=== PATIENT | female | born 1965 | race Caucasian/White ===

== ENCOUNTER 2024-06-23 21:06 | Emergency (ER) | payer BC, SELFPAY ==
[2024-06-23 21:08] VITALS: BMI 40.5
[2024-06-23 21:15] VITALS: BP 168/97; PULSE 91; RESP 20; TEMP 36.8; O2SAT 98
--- NOTE | 2024-06-23 21:22 | XR_ITS ---
Examination: CT abdomen and pelvis without contrast. Coronal 3-D reconstructions. Sagittal 2-D reconstructions. Date and time of exam:June 23, 2024 2125 hrs. Indications: Bilateral flank pain beginning yesterday CTDI: vol (mGy): 14.6 DLP: (mGycm): 796 Technique: Axial images of the abdomen have been obtained, 3 mm slice thickness Intravenous contrast material has not been administered. Low dose protocols were performed. One or more of the following dose reduction techniques were used; automated exposure control, adjustment of the mA and/or KV according to patient size, use of iterative reconstruction technique. Findings: No focal liver or splenic lesions No gallstones No pancreatic or adrenal mass 4 mm lower pole left renal calculus No hydronephrosis or ureteral calculi Aorta normal size Normal appendix No bowel obstruction Colonic diverticulosis Contracted urinary bladder no bladder mass or bladder calculi No pelvic mass Advanced degenerative disc disease L2-L3 Impression: 4 mm lower pole nonobstructing left renal calculus No hydronephrosis or ureteral calculi Normal appendix Advanced degenerative disc disease L2-L3
--- NOTE | 2024-06-23 21:23 | EDRME_ITS ---
Rapid Medical Screening Exam [facility] Arrival date/time: 06/23/24 21:06 58F with history of HTN presents to ED with 1 day of lower back/flank pain and N/V. Patient denies dysuria and ab pain. Chief Complaint: Back Pain/Injury Vital signs: Vital Signs Temperature 98.2 F 06/23/24 21:15 Pulse Rate 91 06/23/24 21:15 Respiratory Rate 20 06/23/24 21:15 Blood Pressure 168/97 H 06/23/24 21:15 Pulse Oximetry (%) 98 06/23/24 21:15 Oxygen Delivery Method Room Air 06/23/24 21:15
[2024-06-23] MEDS: ONDANSETRON ODT 4 MG TABRAP PO (21:26)
[2024-06-23] MEDS: HYDROcodone/APAP 7.5/325 TABLET 1 TAB PO (21:26)
[2024-06-23 22:13] LABS: Basophils # (Auto) 0.1 Thou/mm3 (0.0-0.2); Basophils % (Auto) 1 % (0-2.5); Eosinophils # (Auto) 0.1 Thou/mm3 (0.0-0.5); Eosinophils % (Auto) 1 % (0-10); Hematocrit 43.9 % (36.0-46.0); Hemoglobin 14.3 g/dL (12.0-16.0); Immature Granulocytes % (Auto) 1 % (0-0); Immature Granulocytes Auto 0.09 Thou/mm3 (0.00-0.00); Lymphocytes # (Auto) 2.9 Thou/mm3 (1.0-4.8); Lymphocytes % (Auto) 24 % (10-50); Mean Corpuscular HGB Conc 32.6 g/dl (31.0-37.0); Mean Corpuscular Volume 98 fL (80-100); Monocytes # (Auto) 0.8 Thou/mm3 (0.0-0.8); Monocytes % (Auto) 7 % (0-12); Neutrophils # (Auto) 7.9 Thou/mm3 (1.8-7.7); Neutrophils % (Auto) 66 % (37-80); Nucleated Red Blood Cell % 0 /100 WBC (0); Platelet Count 359 Thou/mm3 (140-440); RDW Standard Deviation 60.5 fL (36.4-46.3); Red Blood Count 4.47 Miln/mm3 (4.00-5.20); White Blood Count 11.8 Thou/mm3 (3.6-11.0)
[2024-06-23 22:32] LABS: Collection Type, Urine Clean Catch
[2024-06-23 22:40] LABS: Bacteria,Urine 4+; Bilirubin,Urine Negative (Negative); Blood,Urine Negative (Negative); Clarity,Urine Clear (Clear/Hazy); Color,Urine Lt-Yellow (Lt Yel-Yel); Culture Indicated,Urine Yes; Glucose, Urine Negative (Negative); Hyaline Casts,Urine 1 /hpf (0-1); Ketones,Urine Negative (Negative); Leukocyte Esterase,Urine Positive (Negative); Nitrite,Urine Positive (Negative); Protein,Urine 1+ (Neg - Trace); RBC,Urine 5 /hpf (0-3); Squamous Epithelial Cell,Urine 1 /hpf (0-5); Urobilinogen,Urine Negative mg/dL (0.0-1.0); WBC,Urine 11 /hpf (0-5)
[2024-06-23 22:44] LABS: Alanine Aminotransferase < 7 U/L (10-49); Albumin, Serum 4.8 gm/dL (3.5-5.0); Albumin/Globulin Ratio 1.7 (1.2-2.2); Alkaline Phosphatase 54 U/L (46-116); Anion Gap 9 (7-16); Aspartate Amino Transferase 15 U/L (0-34); BUN/Creatinine Ratio 14 Ratio (12-20); Bilirubin,Total < 0.2 mg/dL (0.3-1.2); Blood Urea Nitrogen 15 mg/dL (9-23); Calcium 10.2 mg/dL (8.3-10.6); Calcium (Corrected) 10.2 mg/dL (8.5-10.1); Chloride 113 mMol/L (98-107); Creatinine (Component) 1.1 mg/dL (0.6-1.3); Estimated Creatinine Clearance 68.2 mL/min (>60); Globulin 2.8 gm/dL (2.3-3.5); Glucose 106 mg/dL (74-106); Lipase 49 U/L (12-53); Osmolality,Calculated 280 (275-295); Potassium 4.7 mMol/L (3.4-5.1); Sodium 140 mMol/L (136-145); Total Protein 7.6 gm/dL (5.7-8.2); eGFR 59 See Note
[2024-06-23 22:46] VITALS: BP 129/97; PULSE 90; RESP 20; O2SAT 91
--- NOTE | 2024-06-23 23:01 | PD.EDBACK ---
ED Back Injury Pain RME/HPI General Chief Complaint: Back Pain/Injury Stated Complaint: LOWER BACK PAIN;N/V Arrival date/time: 06/23/24 21:06 RME / HPI RME / HPI Narrative: 06/23/24 21:06 58F with history of HTN presents to ED with 1 day of lower back/flank pain and N/V. Patient denies dysuria and ab pain. Dr. Franklin?s Main ED Evaluation: 58yo female with pmhx HTN presents to the ED for a chief complaint of right lower back pain that radiates to her bilateral flanks x 1 day. Patient states she has a history of kidney stones, but states her pain does not feel similar to that. She reports taking Tylenol at 1900, but had an emetic episode on the way here. She denies any falls or injuries. Denies UTI symptoms or any other associated symptoms. Related Data Previous Rx's ?Medication ?Instructions ?Recorded cyclobenzaprine 10 mg tablet 10 mg PO Q8H PRN muscle spasm #15 11/19/17 tabs hydrocodone 10 mg-acetaminophen 1 tab PO Q6HR #15 tabs 11/19/17 300 mg tablet lidocaine 5 % topical patch 1 patch topical QDAY PRN 06/24/24 Sacroiliitis pain 15 days #15 ea Allergies Allergy/AdvReac Type Severity Reaction Status Date / Time aspirin AdvReac Intermediate MAKES Verified 06/23/24 21:11 STOMACH BLEED Review of Systems Review of Systems Systems Reviewed: All systems reviewed, normal except as documented Past Medical History Past Medical History CARDIAC: Negative Congestive Heart Failure RESPIRATORY: Positive Asthma; Negative Chronic Obstructive Pulmonary Disease (COPD) GENITOURINARY: Positive Kidney Stones; Negative Renal Disease ENDOCRINE: Negative Diabetes Mellitus Type 1 or Diabetes Mellitus Type 2 Surgical History SURGICAL: Positive Hysterectomy Social History SMOKING STATUS: Current some day smoker ED Exam Narrative Physical exam: GENERAL APPEARANCE: alert and oriented x 4, well-developed, well-nourished, no acute distress VITALS: All vitals were reviewed and the pulse ox is 94% on room air, which is normal according to my interpretation. HEENT: Normocephalic, atraumatic; pupils equal, round, reactive to light; EOMI; mucous membranes pink, moist; oropharynx clear NECK: Supple LUNGS: CTABL; no wheezes, no rales, no rhonchi HEART: Regular rate, regular rhythm; normal S1, S2; no murmurs ABDOMEN: non distended; normal BS; soft, no tenderness, no guarding, no rebound; no masses, no organomegaly, no hernia BACK: no CVA tenderness; tenderness to palpation over the right SI joint, no straight leg raise EXTREMITIES: atraumatic; no edema; normal sensations, full ROM of all 4 extremities with symmetrical strength NEUROLOGIC: awake; alert and oriented x4; cranial nerves II-XII grossly intact; no focal sensory or motor deficits PSYCHIATRIC: appropriate mood and affect SKIN: warm, dry, normal color; no rashes Course Quality Measures none Orders Category Date Time Status IV [Insert IV] NOW Care 06/23/24 23:[address] abdomen pelvis wo con Stat Exams 06/23/24 21:22 Completed CBC Stat Lab 06/23/24 22:03 Completed CMP [Comprehensive Metabolic Panel] Stat Lab 06/23/24 22:03 Completed Lipase Stat Lab 06/23/24 22:03 Completed Urinalysis, C/S if Indicated Stat Lab 06/23/24 22:17 Completed Urine Culture Stat Lab 06/23/24 22:17 Received Acetaminophen Ivpb [Ofirmev Inj] Med 06/23/24 23:17 Discontinued 1,000 mg in 100 ml IV X1 HYDROcodone*/APAP 7.5/325 [[place] 7.5/325] Med 06/23/24 21:22 Discontinued 1 tab PO X1 ONE HYDROmorphone INJ [Dilaudid Inj] Med 06/23/24 23:20 Discontinued 0.5 mg IVP X1 ONE Lidocaine 5% Patch Med 06/23/24 23:17 Discontinued 1 patch TOP X1 ONE Ondansetron Odt [Zofran Odt] Med 06/23/24 21:22 Discontinued 4 mg PO X1 ONE cefTRIAXone/D5w 1gm IV premix [Rocephin/D5w 1gm IV Med 06/23/24 23:05 Discontinued premix] 50 ml IV X1 Reevaluation(s) Reevaluation #1: Patient states she feels better and feels comfortable going home. Time: 00:31 Vital Signs Vital signs: Vital Signs Temperature 98.2 F 06/23/24 21:15 Pulse Rate 91 06/23/24 21:15 Respiratory Rate 20 06/23/24 21:15 Blood Pressure 168/97 H 06/23/24 21:15 Pulse Oximetry (%) 98 06/23/24 21:15 Oxygen Delivery Method Room Air 06/23/24 21:15 Back Pain / Injury MDM Narrative MDM Narrative:: Scribe Attestation: 06/23/24 - Aundrea Baca am scribing for and in the presence of Dr. Franklin. Patient data External records reviewed:: [facility] previous records (Per chart review, patient was seen here on 11/19/17 for a back contusion.) Clinical information provided by:: patient Social determinants that could affect healthcare access:: substance use (smokes cigarettes) Patient has the following chronic illnesses:: asthma How is presenting disease/condition affected by chronic disease/condition?: uneffected by Evaluation data The following diagnostics were reviewed and interpreted by me:: lab results and radiology exam(s) Lab and/or radiology exams considered but not ordered:: none Interpretation Summary: WBC count is slightly elevated at 11.8, CMP is normal, UA shows a UTI, according to my interpretation. ------ [facility] Report Signed Patient: LASHELL MURILLO. Record#: [id number] Birthdate: 1965 Age/Sex: 58 / F Location: [facility] Attending Dr: Ordering Physician: Kennedy Mora PA-C Date of Service: 06/23/24 Procedure(s): CT abdomen pelvis wo con Accession Number(s): [id number] cc: Trent Olivares MD; Marvin Matta MD; Kennedy Mora PA-C~ Examination: CT abdomen and pelvis without contrast. Coronal 3-D reconstructions. Sagittal 2-D reconstructions. Date and time of exam:June 23, 2024 2125 hrs. Indications: Bilateral flank pain beginning yesterday CTDI: vol (mGy): 14.6 DLP: (mGycm): 796 Technique: Axial images of the abdomen have been obtained, 3 mm slice thickness Intravenous contrast material has not been administered. Low dose protocols were performed. One or more of the following dose reduction techniques were used; automated exposure control, adjustment of the mA and/or KV according to patient size, use of iterative reconstruction technique. Findings: No focal liver or splenic lesions No gallstones No pancreatic or adrenal mass 4 mm lower pole left renal calculus No hydronephrosis or ureteral calculi Aorta normal size Normal appendix No bowel obstruction Colonic diverticulosis Contracted urinary bladder no bladder mass or bladder calculi No pelvic mass Advanced degenerative disc disease L2-L3 Impression: 4 mm lower pole nonobstructing left renal calculus No hydronephrosis or ureteral calculi Normal appendix Advanced degenerative disc disease L2-L3 Dictated By: Marvin Matta MD Signed By: <Electronically signed by Marvin Matta MD in OV> 06/23/24 2212 Medications / Prescriptions Medications or Prescriptions considered but not ordered:: none Medication administrations:: Medication Administration History Discontinued Medications Hydrocodone Bitart/Acetaminophen (Hydrocodone/Apap 7.5/325 Tablet) 1 tab PO X1 ONE Stop: 06/23/24 21:23 Last Admin: 06/23/24 21:26 Dose: 1 tab Documented By: OA Hydromorphone HCl (Hydromorphone Inj 2 Mg/Ml Vial) 0.5 mg IVP X1 ONE Stop: 06/23/24 23:21 Last Admin: 06/23/24 23:26 Dose: 0.5 mg Documented By: GAYLE Ceftriaxone Sodium/Dextrose (Rocephin/D5w 1gm Iv Premix) 50 mls @ 100 mls/hr IV X1 ONE Stop: 06/23/24 23:34 Last Infusion: 06/24/24 00:33 Dose: Infused Documented By: Admin: 06/23/24 23:33 Dose: 100 mls/hr Documented By: GAYLE Acetaminophen (Ofirmev Inj) 1,000 mg in 100 mls @ 250 mls/hr IV X1 ONE Stop: 06/23/24 23:40 Last Infusion: 06/24/24 00:32 Dose: Infused Documented By: Admin: 06/23/24 23:34 Dose: 250 mls/hr Documented By: GAYLE Lidocaine (Lidocaine 5% 1 Patch) 1 patch TOP X1 ONE Stop: 06/23/24 23:18 Last Admin: 06/23/24 23:26 Dose: 1 patch Documented By: GAYLE Ondansetron HCl (Ondansetron Odt 4 Mg Tabrap) 4 mg PO X1 ONE; Protocol Stop: 06/23/24 21:23 Last Admin: 06/23/24 21:26 Dose: 4 mg Documented By: OA see above Consultations Consultation(s) initiated? (list below): No Diagnosis Differential diagnosis back pain/injury: sciatica, pyelonephritis and other (sacroileitis, trauma) Most likely diagnosis given after review of the tests above:: see below Admission Indicated Admission indicated?: not indicated Admission Request Was there a request for admission?: No Disposition Plan Disposition Plan: Discharge Discharge Attestation Discharge Attestation: The patient and all family members were given an opportunity to ask questions and understood the discharge instructions. Discharge instructions specifically effects, indications for sooner follow up or return to the emergency department, and the expected course of current diagnosis. Patient condition: Stable Discharge Plan Plan Patient Disposition: HOME (Self Care) Disposition Comment: Stable for discharge Patient condition on transfer: Stable Prescriptions/Referrals Prescriptions/Med Rec: New lidocaine 5 % adhesive patch,medicated 1 patch topical QDAY PRN (Reason: Sacroiliitis pain) 15 Days Qty: 15 0RF Rx Instructions: leave on most painful area for up to 12 hrs No Action cyclobenzaprine 10 mg tablet 10 mg PO Q8H PRN (Reason: muscle spasm) Qty: 15 0RF hydrocodone-acetaminophen 10-300 mg tablet 1 tab PO Q6HR MDD 4 tabs Qty: 15 0RF Referrals: Trent Olivares MD [Primary Care Provider] - In 1 week Problem List Clinical Impression: Sacroiliitis Patient/Caregiver Discharge Instructions Discharge Activity: activity as tolerated Education Materials: Anatomy of a Normal Spine, ED Sacroiliitis Additional Instructions: Please follow-up with your primary care doctor within the next several days Please return to the emergency department if you are worsening in any way or if you do not notice any improvement within the next few days. Print Language: Peruvian Stand Alone Forms: Deysi Award Info., Patient Portal Info Letter
[2024-06-23] MEDS: HYDROmorphone INJ 2 MG/ML VIAL 0.5 MG IVP (23:26)
[2024-06-23] MEDS: LIDOCAINE 5% 1 PATCH TOP (23:26)
[2024-06-23] MEDS: cefTRIAXone/D5w 1gm IV premix 50 ML IV (23:33)
[2024-06-23] MEDS: ACETAMINOPHEN IVPB 1,000 MG/100 ML VIAL 250 MG IV (23:34)
[2024-06-24 00:37] VITALS: BP 90/58; PULSE 79; RESP 16; O2SAT 95
== END 2024-06-24 00:45 | disposition home or self-care (01) ==
PROVIDERS: Physician Assistant; Emergency Provider Emergency Medicine; PCP Specialist
DX: M46.1 Sacroiliitis, not elsewhere classified (principal); N20.0 Calculus of kidney; M51.360 Other intervertebral disc degeneration, lumbar region with discogenic back pain only
CPT/HCPCS: 36415; 74176; 80053; 81001; 83690; 85025; 87077; 87086; 87186; 96365; 96368; 96375; 99284; J0131; J0696; J3490; Q0162; A9270

== ENCOUNTER 2024-09-20 09:56 | Emergency (ER) | payer BC, SELFPAY ==
[2024-09-20 09:57] VITALS: BMI 39.1
[2024-09-20 10:12] VITALS: BP 169/96; PULSE 98; RESP 18; TEMP 36.8; O2SAT 98
--- NOTE | 2024-09-20 10:17 | XR_ITS ---
Examination: CT brain head without contrast. 2-D sagittal coronal reconstructions Date and time of exam:September 20, 2024 at 1043 hours INDICATIONS: Headaches beginning 3 days ago CTDI: vol (mGy):46.4 DLP: (mGycm):904 Technique: Multiple CT axial sections of the brain have been obtained, 5 mm slice thickness. Contrast has not been administered. 2-D sagittal, coronal reconstructions have been obtained Low dose protocols were performed. One or more of the following dose reduction techniques were used; automated exposure control, adjustment of the mA and/or KV according to patient size, use of iterative reconstruction technique. Findings: No significant ventricular enlargement. Intra-axial or extra-axial hemorrhage density is not seen. No mass effect or midline shift Basal cisterns are not remarkable. Fourth ventricle is midline. Cranial vault intact. Impression: Negative for acute hemorrhage, mass effect or midline shift Significant left sphenoid sinusitis
--- NOTE | 2024-09-20 10:18 | PD.EDRME ---
Rapid Medical Screening Exam [facility] Arrival date/time: 09/20/24 09:56 58-year-old female presents emergency department today for concerns for headache Chief Complaint: Headache Vital signs: Vital Signs Temperature 98.2 F 09/20/24 10:12 Pulse Rate 98 09/20/24 10:12 Respiratory Rate 18 09/20/24 10:12 Blood Pressure 169/96 H 09/20/24 10:12 Pulse Oximetry (%) 98 09/20/24 10:12 Oxygen Delivery Method Room Air 09/20/24 10:12
[2024-09-20] MEDS: DiphenhydrAMINE 25 MG CAPSULE PO (10:23)
[2024-09-20] MEDS: METOCLOPRAMIDE 5 MG TABLET 10 MG PO (10:23)
[2024-09-20] MEDS: HYDROcodone/APAP 10/325 TAB PO (10:23)
[2024-09-20 10:50] LABS: Basophils % (Auto) 0 % (0-2.5); Eosinophils % (Auto) 0 % (0-10); Hematocrit 45.7 % (36.0-46.0); Hemoglobin 14.8 g/dL (12.0-16.0); Immature Granulocytes % (Auto) 1 % (0-0); Immature Granulocytes Auto 0.11 Thou/mm3 (0.00-0.00); Lymphocytes % (Auto) 8 % (10-50); Mean Corpuscular HGB Conc 32.4 g/dl (31.0-37.0); Mean Corpuscular Hemoglobin 32.2 pg (25.0-35.0); Mean Corpuscular Volume 100 fL (80-100); Monocytes # (Auto) 0.4 Thou/mm3 (0.0-0.8); Monocytes % (Auto) 3 % (0-12); Neutrophils # (Auto) 11.4 Thou/mm3 (1.8-7.7); Neutrophils % (Auto) 88 % (37-80); Nucleated Red Blood Cell % 0 /100 WBC (0); Platelet Count 273 Thou/mm3 (140-440); Red Blood Count 4.59 Miln/mm3 (4.00-5.20); White Blood Count 12.9 Thou/mm3 (3.6-11.0)
[2024-09-20 11:13] LABS: Alanine Aminotransferase 11 U/L (10-49); Albumin, Serum 5.2 gm/dL (3.5-5.0); Albumin/Globulin Ratio 1.4 (1.2-2.2); Alkaline Phosphatase 68 U/L (46-116); Anion Gap 17 (7-16); Aspartate Amino Transferase 25 U/L (0-34); BUN/Creatinine Ratio 16 Ratio (12-20); Bilirubin,Total < 0.2 mg/dL (0.3-1.2); Blood Urea Nitrogen 18 mg/dL (9-23); Calcium 9.9 mg/dL (8.3-10.6); Calcium (Corrected) 9.9 mg/dL (8.5-10.1); Chloride 111 mMol/L (98-107); Creatinine (Component) 1.1 mg/dL (0.6-1.3); Estimated Creatinine Clearance 66.9 mL/min (>60); Globulin 3.6 gm/dL (2.3-3.5); Glucose 112 mg/dL (74-106); Osmolality,Calculated 278 (275-295); Potassium 4.8 mMol/L (3.4-5.1); Sodium 138 mMol/L (136-145); Total Protein 8.8 gm/dL (5.7-8.2); eGFR 59 See Note
[2024-09-20 11:14] LABS: Carbon Dioxide < 10.0 mMol/L (20.0-31.0)
--- NOTE | 2024-09-20 11:15 | PC.NURSE ---
CALL FROM [facility] IN LAB. PT'S CO2 IS LESS THAN 10. INFORMED.
--- NOTE | 2024-09-20 12:17 | EDNOTE_ITS ---
<Statement entered by Mamie Maciel MD - 09/20/24 13:54> As co-signing physician, I was present and available for consult prn. I concur with the plan and care as documented by the midlevel provider. ED General RME/HPI General Chief complaint: Headache Stated complaint: SEVERE MIGRAINE X 2-3 DAYS W/ VOMITING Time Seen by Provider: 09/20/24 12:11 Arrival date/time: 09/20/24 09:56 The CC: Headache HPI ongoing for the past 3 days persistent in nature 8-10 on a 10 scale frontal but radiating to the everywhere . Complaints of nausea and vomiting currently mildly nauseated. Complaining of mild noise sensitivity but no photophobia. Patient denies neck stiffness, fever, dizziness, or chills. OTC medicines have not been helping prior history of similar events years ago . Patient has been taking OTC medications without relief. States no relief since given the hydrocodone pill approximately 30 minutes ago in the waiting room. Continues to smoke half to 1 pack a day. RME / HPI RME / HPI narrative: 09/20/24 09:56 58-year-old female presents emergency department today for concerns for headache Related Data Previous Rx's ?Medication ?Instructions ?Recorded cyclobenzaprine 10 mg tablet 10 mg PO Q8H PRN muscle s pasm #15 11/19/17 tabs hydrocodone 10 mg-acetaminophen 1 tab PO Q6HR #15 tabs 11/19/17 300 mg tablet Allergies Allergy/AdvReac Type Severity Reaction Status Date / Time aspirin AdvReac Intermediate MAKES Verified 09/20/24 10:00 STOMACH BLEED Review of Systems Review of Systems Narrative Review of Systems: GEN: No fever, no chills, no weight loss EYES: No discharge, no visual changes, no pain HEENT: No ear pain, no congestion, no sore throat PULM: No shortness of breath, no cough, no congestion CV: No chest pain, no dyspnea on exertion, no palpitations GI: No nausea, no vomiting, no diarrhea, no pain, no constipation : No frequency, no urgency, no dysuria MUSC/SKEL: No joint pain, no back pain SKIN: No rash PSYCH: No hallucinations, no depression HEME/LYMPH: No easy bleeding or bruising tendencies NEURO: No weakness, + headache Past Medical History Past Medical History CARDIAC: Negative Congestive Heart Failure RESPIRATORY: Positive Asthma; Negative Chronic Obstructive Pulmonary Disease (COPD) GENITOURINARY: Positive Kidney Stones; Negative Renal Disease ENDOCRINE: Negative Diabetes Mellitus Type 1 or Diabetes Mellitus Type 2 Surgical History SURGICAL: Positive Hysterectomy Social History SMOKING STATUS: Current every day smoker ED Exam Narrative Physical exam: [General: Obese, in moderate discomfort but not in any acute distress Head normocephalic HEENT: Eyes pupils are PERRLA EOMs are intact no nystagmus. Mouth pink dry membranes uvula is midline swallow symmetrical. All other subsystems of ATTR within acceptable limits Neck is supple nontender Chest equal chest rise nontender to palpation Respiratory: Clear to auscultation no wheezes crackles or rubs CV: Rate rhythm is regular no murmurs rubs or clicks Abdomen is distended secondary to body habitus soft nontender no masses positive bowel sounds all 4 quadrants Back: No CVA tenderness no spinous process tenderness from cervical spine thoracic and lumbar spine Skin: Intact no petechiae rash induration ulceration or crepitus Extremities: Moving all extremity against resistance cap refill less than 2 seconds neurosensory intact. No lower extremity edema. Neuro: Awake alert oriented x3 Glascow coma 15 no focal deficits] Course Quality Measures none Orders Category Date Time Status Saline [Insert IV] NOW Care 09/20/24 12:[address] head/brain wo con Stat Exams 09/20/24 10:17 Completed CBC Stat Lab 09/20/24 10:35 Completed CMP [Comprehensive Metabolic Panel] Stat Lab 09/20/24 10:35 Completed DiphenhydrAMINE [Benadryl] Med 09/20/24 10:17 Discontinued 25 mg PO X1 ONE HYDROcodone/APAP 10/325 [[place] 10/325] Med 09/20/24 10:17 Discontinued 1 tab PO X1 ONE Metoclopramide [Reglan] Med 09/20/24 10:17 Discontinued 10 mg PO X1 ONE Morphine Inj Med 09/20/24 12:15 Discontinued 4 mg IVP X1 ONE Ondansetron Inj [Zofran Inj] Med 09/20/24 12:15 Discontinued 4 mg IV X1 ONE Vital Signs Vital signs: Vital Signs Temperature 98.2 F 09/20/24 10:12 Pulse Rate 98 09/20/24 10:12 Respiratory Rate 18 09/20/24 10:12 Blood Pressure 169/96 H 09/20/24 10:12 Pulse Oximetry (%) 98 09/20/24 10:12 Oxygen Delivery Method Room Air 09/20/24 10:12 [facility] Patient data External records reviewed:: [facility] previous records Clinical information provided by:: patient Social determinants that could affect healthcare access:: none Patient has the following chronic illnesses:: Smoker How is presenting disease/condition affected by chronic disease/condition?: e xacerbated by Evaluation data The following diagnostics were reviewed and interpreted by me:: lab results and radiology exam(s) Lab and/or radiology exams considered but not ordered:: CT of the head shows a significant sinusitis but otherwise no acute abnormal finding that requires emergent or immediate intervention. CBC shows a mild leukocytosis of 12.9 no anemia thrombocytopenia CMP shows a chloride of 111 CO2 of less than 10 gap of 17 glucose of 112 no significant transaminitis or T. bili elevation. Interpretation Summary: On initial assessment patient is hyperventilating secondary to pain this is evidenced by CO2 of less than 10. Reassessment of this patient at 1115 show the patient has significant improvement after morphine headache is minimal down to a 1 to a 2. The patient is awake alert smiling. Not in any acute distress vital signs remained stable. Patient was informed of the sinusitis on CT no other acute finding other than the low CO2. Reassessment of this patient at 126 the patient is smiling headache is down to 1 patient is willing to go home. Patient will be discharged with headache. Medications Medications considered but not ordered:: None Medication administrations:: Medication Administration History Discontinued Medications Hydrocodone Bitart/Acetaminophen (Hydrocodone/Apap 10/325 Tab) 1 tab PO X1 ONE Stop: 09/20/24 10:18 Last Admin: 09/20/24 10:23 Dose: 1 tab Documented By: DO Diphenhydramine HCl (Diphenhydramine 25 Mg Capsule) 25 mg PO X1 ONE Stop: 09/20/24 10:18 Last Admin: 09/20/24 10:23 Dose: 25 mg Documented By: DO Metoclopramide HCl (Metoclopramide 5 Mg Tablet) 10 mg PO X1 ONE Stop: 09/20/24 10:18 Last Admin: 09/20/24 10:23 Dose: 10 mg Documented By: DO Morphine Sulfate (Morphine Sulf Inj 10 Mg/Ml Vial) 4 mg IVP X1 ONE Stop: 09/20/24 12:16 Last Admin: 09/20/24 12:27 Dose: 4 mg Documented By: LIBORIO Ondansetron HCl (Ondansetron Inj 2 Mg/Ml Inj 2 Ml) 4 mg IV X1 ONE; Protocol Stop: 09/20/24 12:16 Last Admin: 09/20/24 12:28 Dose: 4 mg Documented By: LIBORIO None Consultations Consultation(s) initiated? (list below): No Diagnosis Differential Diagnosis ED Complaint MDM: Complex migraine tension headache sinusitis Most likely diagnosis given after review of the tests above:: Headache sinusitis Admission Indicated Admission indicated?: not indicated Explain why admission is indicated or not indicated:: Stable for outpatient follow Admission Request Was there a request for admission?: No Disposition Plan Disposition Plan: Discharge Discharge Attestation Discharge Attestation: The patient and all family members were given an opportunity to ask questions and understood the discharge instructions. Discharge instructions specifically effects, indications for sooner follow up or return to the emergency department, and the expected course of current diagnosis. Patient condition: Stable Medical Decision Making Differential Diagnosis Differential Diagnosis: Complex migraine tension headache sinusitis Lab Data 09/20/24 10:35 09/20/24 10:35 Labs: Lab Results 09/20/24 Range/Units 10:35 WBC 12.9 H (3.6-11.0) Thou/mm3 RBC 4.59 (4.00-5.20) Miln/mm3 Hgb 14.8 (12.0-16.0) g/dL Hct 45.7 (36.0-46.0) % MCV 100 (80-100) fL MCH 32.2 (25.0-35.0) pg MCHC 32.4 (31.0-37.0) g/dl RDW Std Deviation 54.0 H (36.4-46.3) fL Plt Count 273 (140-440) Thou/mm3 Neut % (Auto) 88 H (37-80) % Lymph % (Auto) 8 L (10-50) % [place] % (Auto) 3 (0-12) % Eos % (Auto) 0 (0-10) % Baso % (Auto) 0 (0-2.5) % Neut # (Auto) 11.4 H (1.8-7.7) Thou/mm3 Lymph # (Auto) 1.0 (1.0-4.8) Thou/mm3 [place] # (Auto) 0.4 (0.0-0.8) Thou/mm3 Eos # (Auto) 0.0 (0.0-0.5) Thou/mm3 Baso # (Auto) 0.0 (0.0-0.2) Thou/mm3 Immature Gran # (Auto) 0.11 H (0.00-0.00) Thou/mm3 Absolute Nucleated RBC 0.00 (0.00-0.00) Thou/mm3 Immature Gran % 1 H (0-0) % Nucleated RBC % 0 (0) /100 WBC Sodium 138 (136-145) mMol/L Potassium 4.8 (3.4-5.1) mMol/L Chloride 111 H (98-107) mMol/L Carbon Dioxide < 10.0 L* (20.0-31.0) mMol/L Anion Gap 17 H (7-16) BUN 18 (9-23) mg/dL Creatinine 1.1 (0.6-1.3) mg/dL Estim Creat Clear Calc 66.9 (>60) mL/min eGFR 59 L (60 - ) See Note BUN/Creatinine Ratio 16 (12-20) Ratio Glucose 112 H (74-106) mg/dL Calculated Osmolality 278 (275-295) Calcium 9.9 (8.3-10.6) mg/dL Corrected Calcium 9.9 (8.5-10.1) mg/dL Total Bilirubin < 0.2 L (0.3-1.2) mg/dL AST 25 (0-34) U/L ALT 11 (10-49) U/L Alkaline Phosphatase 68 (46-116) U/L Total Protein 8.8 H (5.7-8.2) gm/dL Albumin 5.2 H (3.5-5.0) gm/dL Globulin 3.6 H (2.3-3.5) gm/dL Albumin/Globulin Ratio 1.4 (1.2-2.2) Discharge Plan Plan Patient Disposition: HOME (Self Care) Patient condition on transfer: Stable Prescriptions/Referrals Prescriptions/Med Rec: No Action cyclobenzaprine 10 mg tablet 10 mg PO Q8H PRN (Reason: muscle spasm) Qty: 15 0RF hydrocodone-acetaminophen 10-300 mg tablet 1 tab PO Q6HR MDD 4 tabs Qty: 15 0RF Referrals: Beckie Robertson TELETYPEWRITER INSTALLER [Primary Care Provider] - In 1 week Problem List Clinical Impression: Headache Patient/Caregiver Discharge Instructions Education Materials: Self-Care for Headaches Print Language: Palestinian Stand Alone Forms: Deysi Award Info., Work/School Release, Patient Portal Info Letter PA/SPRINKLER WORKER Supervising Physician PA/SPRINKLER WORKER Supervising Physician: Chivo Valenzuela ENP
[2024-09-20 12:19] VITALS: BP 160/85; PULSE 117; RESP 20; TEMP 36.5; O2SAT 97
[2024-09-20] MEDS: MORPHINE SULF INJ 10 MG/ML VIAL 4 MG IVP (12:27)
[2024-09-20] MEDS: ONDANSETRON INJ 2 MG/ML INJ 2 ML 4 MG IV (12:28)
[2024-09-20 13:37] VITALS: BP 135/96; PULSE 87; RESP 18; TEMP 37.2; O2SAT 98
== END 2024-09-20 13:55 | disposition home or self-care (01) ==
PROVIDERS: Nurse Practitioner Primary Care; Emergency Provider Emergency Medicine; PCP Nurse Practitioner Family
DX: J32.3 Chronic sphenoidal sinusitis (principal); F17.210 Nicotine dependence, cigarettes, uncomplicated
CPT/HCPCS: 36415; 70450; 80053; 85025; 96374; 96375; 99284; J2270; J2405; A9270

== ENCOUNTER 2025-05-13 15:52 | Inpatient (IN) | payer BC, SELFPAY ==
[2025-05-13 15:52] VITALS: BMI 57.3
[2025-05-13 16:27] VITALS: BP 136/86; PULSE 80; RESP 20; TEMP 37; O2SAT 95
--- NOTE | 2025-05-13 16:46 | XR_ITS ---
Examination: Duplex scan of the lower extremity, unilateral left Date and time of exam: May 13, 2025, 1655 hours INDICATIONS: Left leg swelling and pain beginning 4 days ago Technique: Duplex scan of the extremity veins using B-mode/grayscale imaging and Doppler spectral analysis and color flow Attention is directed to internal echogenicity, compression and augmentation involving these veins, color flow assessment, spectral analysis Findings: Extensive occlusive deep vein thrombus, left common femoral, superficial femoral, popliteal, peroneal veins Impression: Extensive occlusive deep vein thrombus, involving left common femoral, left superficial femoral, popliteal, peroneal veins as well as superficial greater saphenous vein.
--- NOTE | 2025-05-13 17:33 | PD.EDLOWEX ---
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 Patient denies any injuries or history of similar pain or swelling. Related Data Home Medications ?Medication ?Instructions ?Recorded ?Confirmed albuterol sulfate 90 mcg/actuation inhalation 05/14/25 aerosol inhaler benzonatate 200 mg capsule mg PO 05/14/25 budesonide 160 mcg-glycopyr 9 inhalation 05/14/25 mcg-formot 4.8 mcg/actuation HFA inhaler (Breztri Aerosphere) celecoxib 200 mg capsule mg 05/14/25 lisinopril 40 mg tablet mg 05/14/25 tizanidine 4 mg tablet mg 05/14/25 zolpidem 10 mg tablet mg 05/14/25 Allergies Allergy/AdvReac Type Severity Reaction Status Date / Time aspirin AdvReac Intermediate MAKES Verified 05/13/25 15:55 STOMACH BLEED Review of Systems Review of Systems Systems Reviewed: All systems reviewed, normal except as documented Past Medical History Past Medical History RESPIRATORY: Positive Asthma GENITOURINARY: Positive Kidney Stones Surgical History SURGICAL: Positive Hysterectomy Social History SMOKING STATUS: Light (< 1 pack/day) ED Exam Narrative Physical exam: Constitutional: Awake, alert, nontoxic, no acute distress HEENT: Normocephalic, atraumatic, extraocular movements intact. Neck: Supple CV: Regular rate and rhythm, no murmurs/rubs/gallops Lungs: Clear to auscultation BL, no respiratory distress. Abd: Soft, NT, ND, no HSM noted to palpation Extremities: No deformities, significant swelling to the left lower extremity with 3-4+ pitting edema, pain with dorsiflexion, varicose veins Neuro: AAOx3, CN 2-12 GIBL, no acute neuro deficit noted. Skin: Warm, dry, intact Course Course Course Narrative: 1757h: Patient's ultrasound is back with significant extensive DVT. Labs are pending. Due to the extent of DVT, heparin was ordered. Is pending labs. Will sign out to night doctor Dr. Jones pending same with plan for admission. Quality Measures none Orders Category Date Time Status Notify provider NOW Care 05/13/25 17:55 Active US venous doppler LE LT Stat Exams 05/13/25 16:46 Completed CBC Stat Lab 05/13/25 17:37 Completed CMP [Comprehensive Metabolic Panel] Stat Lab 05/13/25 17:37 Completed CMP [Comprehensive Metabolic Panel] Stat Lab 05/13/25 21:56 Completed PT [Prothrombin Time with INR] Stat Lab 05/13/25 17:37 Completed Partial Thromboplastin Time Stat Lab 05/13/25 17:37 Completed Heparin Inj Med 05/13/25 17:55 Discontinued 4,000 unit IV X1 ONE Heparin/D5w 25K 250 ML Ivpb [Heparin in D5w Ivpb] Med 05/13/25 18:00 Active 25,000 unit in 250 ml IV 11.9 units/kg/hr Morphine* Inj Med 05/13/25 20:40 Discontinued 4 mg IVP X1 ONE Ondansetron Inj [Zofran Inj] Med 05/13/25 20:41 Discontinued 4 mg IVP X1 ONE Vital Signs Vital signs: Vital Signs Temperature 98.6 F 05/13/25 16:27 Pulse Rate 80 05/13/25 16:27 Respiratory Rate 20 05/13/25 16:27 Blood Pressure 136/86 H 05/13/25 16:27 Pulse Oximetry (%) 95 05/13/25 16:27 Oxygen Delivery Method Room Air 05/13/25 16:27 Pulse ox is 95% on room air which is adequate. Extremity Injury, Lower MDM Narrative MDM Narrative:: Denita Baca am scribing for and in the presence of Dr. Samuel. Patient data External records reviewed:: [facility] previous records Clinical information provided by:: patient Social determinants that could affect healthcare access:: other (specify) (active tobacco smoker ) Patient has the following chronic illnesses:: asthma, arthritis, and active tobacco smoker How is presenting disease/condition affected by chronic disease/condition?: exacerbated by Evaluation data The following diagnostics were reviewed and interpreted by me:: radiology exam(s) Lab and/or radiology exams considered but not ordered:: None Interpretation Summary: Ordering Physician: Heaven Samuel MD Date of Service: 05/13/25 Procedure(s): US venous doppler LE LT Accession Number(s): [id number] cc: Marvin Matta MD; Heaven Samuel MD~ Examination: Duplex scan of the lower extremity, unilateral left Date and time of exam: May 13, 2025, 1655 hours INDICATIONS: Left leg swelling and pain beginning 4 days ago Technique: Duplex scan of the extremity veins using B-mode/grayscale imaging and Doppler spectral analysis and color flow Attention is directed to internal echogenicity, compression and augmentation involving these veins, color flow assessment, spectral analysis Findings: Extensive occlusive deep vein thrombus, left common femoral, superficial femoral, popliteal, peroneal veins Impression: Extensive occlusive deep vein thrombus, involving left common femoral, left superficial femoral, popliteal, peroneal veins as well as superficial greater saphenous vein. Dictated By: Marvin Matta MD Signed By: <Electronically signed by Marvin Matta MD in OV> 05/13/25 1736 Medications / Prescriptions Medications or Prescriptions considered but not ordered:: None Medication administrations:: Medication Administration History Acetaminophen (Acetaminophen 325 Mg Tablet) 650 mg PO Q6H PRN PRN Reason: Fever >100.4 or pain 1-3 Stop: 06/12/25 22:06 Last Admin: 05/14/25 06:23 Dose: 650 mg Documented By: Admin: 05/14/25 00:43 Dose: 650 mg Documented By: AC Hydrocodone Bitart/Acetaminophen (Hydrocodone/Apap 5/325 Tablet) 1 tab PO Q4HR PRN PRN Reason: pain 4-6 Stop: 05/19/25 01:52 Albuterol/Ipratropium (Albuterol/Ipratropium (Duoneb) Rt Rabia 3 Ml Nebu) 3 ml INH Q4HRRT PRN PRN Reason: shortness of breath Stop: 06/12/25 22:59 Docusate Sodium (Docusate Sod 100 Mg Capsule) 100 mg PO QDAY [facility]; Protocol Stop: 06/13/25 08:59 Heparin Sodium/Dextrose (Heparin In D5w Ivpb) 25,000 unit in 250 mls @ 18.029 mls/hr IV .[id number] [facility]; Protocol Stop: 05/27/25 17:59 Last Admin: 05/13/25 19:47 Dose: 11.9 units/kg/hr, 18.029 mls/hr Documented By: GAYLE Co-signed By: GAYLE(2) Morphine Sulfate (Morphine Sulf Inj 4 Mg/Ml Vial) 2 mg IVP Q4HR PRN PRN Reason: Pain 7-10 Stop: 05/19/25 01:52 Last Admin: 05/14/25 05:34 Dose: 2 mg Documented By: Admin: 05/14/25 02:07 Dose: 2 mg Documented By: GAYLE Ondansetron HCl (Ondansetron Inj 2 Mg/Ml Inj 2 Ml) 4 mg IVP Q6H PRN; Protocol PRN Reason: NAUSEA OR VOMITING Stop: 06/12/25 22:06 Pantoprazole Sodium (Pantoprazole Inj 40 Mg Vial) 40 mg IVP QDAY PREET Stop: 06/13/25 08:59 Zolpidem Tartrate (Zolpidem 5 Mg Tablet) 5 mg PO HS PRN PRN Reason: INSOMNIA Stop: 06/12/25 22:11 Discontinued Medications Albuterol/Ipratropium (Albuterol/Ipratropium (Duoneb) Rt Rabia 3 Ml Nebu) 3 ml INH Q4HRRT PREET Stop: 06/12/25 22:59 Last Admin: 05/13/25 22:32 Dose: 3 ml Documented By: TREVOR Heparin Sodium (Porcine) (Heparin Sod Inj 5000 Unit/Ml Vial) 4,000 unit IV X1 ONE; Protocol Stop: 05/13/25 17:56 Last Admin: 05/13/25 19:43 Dose: 4,000 unit Documented By: GAYLE Co-signed By: GAYLE(2) Morphine Sulfate (Morphine Sulf Inj 4 Mg/Ml Vial) 4 mg IVP X1 ONE Stop: 05/13/25 20:41 Last Admin: 05/13/25 21:08 Dose: 4 mg Documented By: CHRISTINA Ondansetron HCl (Ondansetron Inj 2 Mg/Ml Inj 2 Ml) 4 mg IVP X1 ONE; Protocol Stop: 05/13/25 20:42 Last Admin: 05/13/25 21:08 Dose: 4 mg Documented By: CHRISTINA See above Consultations Consultation(s) initiated? (list below): No Diagnosis Most likely diagnosis given after review of the tests above:: Left lower extremity DVT Admission Indicated Admission indicated?: not indicated Explain why admission is indicated or not indicated:: Signed out pending final disposition Admission Request Was there a request for admission?: No Disposition Plan Disposition Plan: other (specify) (Signed out to Dr. Jones ) Critical Care Time Critical Care Time Total Critical Care Time (min.): 32 Attestation: The high probability of a clinically significant, sudden or life threatening deterioration required my full and direct attention, intervention and personal management. The aggregate critical care time was [32] minutes. This time is in addition to time spent performing reported procedures but includes the following: [x] Data Review and interpretation [x] Patient assessment and monitoring of vital signs [x] Documentation [x] Medication orders and management Discharge Plan Plan Patient Disposition: Admit Acute Care w/in Hospital Problem List Clinical Impression: DVT (deep venous thrombosis)
[2025-05-13 17:54] LABS: Basophils # (Auto) 0.0 Thou/mm3 (0.0-0.2); Basophils % (Auto) 0 % (0-2.5); Eosinophils # (Auto) 0.2 Thou/mm3 (0.0-0.5); Eosinophils % (Auto) 2 % (0-10); Hematocrit 41.5 % (36.0-46.0); Hemoglobin 13.5 g/dL (12.0-16.0); Immature Granulocytes Auto 0.10 Thou/mm3 (0.00-0.00); Lymphocytes # (Auto) 2.6 Thou/mm3 (1.0-4.8); Lymphocytes % (Auto) 22 % (10-50); Mean Corpuscular HGB Conc 32.5 g/dl (31.0-37.0); Mean Corpuscular Hemoglobin 31.8 pg (25.0-35.0); Mean Corpuscular Volume 98 fL (80-100); Monocytes # (Auto) 1.2 Thou/mm3 (0.0-0.8); Monocytes % (Auto) 10 % (0-12); Neutrophils # (Auto) 7.9 Thou/mm3 (1.8-7.7); Neutrophils % (Auto) 66 % (37-80); Nucleated Red Blood Cell # 0.00 Thou/mm3 (0.00-0.00); Nucleated Red Blood Cell % 0 /100 WBC (0); Platelet Count 229 Thou/mm3 (140-440); RDW Standard Deviation 51.4 fL (36.4-46.3); Red Blood Count 4.24 Miln/mm3 (4.00-5.20); White Blood Count 12.0 Thou/mm3 (3.6-11.0)
[2025-05-13 18:05] LABS: INR 1.0 (0.9-1.3); Prothrombin Time 10.2 Seconds (9.0-12.2)
[2025-05-13 18:23] LABS: Alanine Aminotransferase < 7 U/L (10-49); Albumin, Serum 4.7 gm/dL (3.5-5.0); Albumin/Globulin Ratio 1.9 (1.2-2.2); Alkaline Phosphatase 43 U/L (46-116); Anion Gap 6 (7-16); Aspartate Amino Transferase 15 U/L (0-34); BUN/Creatinine Ratio 23 Ratio (12-20); Bilirubin,Total < 0.2 mg/dL (0.3-1.2); Blood Urea Nitrogen 23 mg/dL (9-23); Calcium 9.1 mg/dL (8.3-10.6); Calcium (Corrected) 9.1 mg/dL (8.5-10.1); Carbon Dioxide 20.8 mMol/L (20.0-31.0); Chloride 112 mMol/L (98-107); Creatinine (Component) 1.0 mg/dL (0.6-1.3); Estimated Creatinine Clearance 91.5 mL/min (>60); Globulin 2.5 gm/dL (2.3-3.5); Glucose 92 mg/dL (74-106); Osmolality,Calculated 281 (275-295); Potassium 5.5 mMol/L (3.4-5.1); Sodium 139 mMol/L (136-145); Total Protein 7.2 gm/dL (5.7-8.2); eGFR > 60 See Note
--- NOTE | 2025-05-13 18:32 | PD.EDADDENDU ---
Emergency Room Addendum Addendum Narrative: 1800: Care assumed from Dr. Samuel (emergency physician). Past medical, surgical, social and family history reviewed. Vitals and home medications reviewed. Results and treatment plan discussed. I will assume the care of the patient at this time and will follow the patient, pending final disposition. The following addendum documentation note is intended to reflect any pending information, findings, or radiology results not included in the patient?s initial chart by the previous shift scribe. RADIOLOGY Venous Doppler Study: Findings: Extensive occlusive deep vein thrombus, left common femoral, superficial femoral, popliteal, peroneal veins Impression: Extensive occlusive deep vein thrombus, involving left common femoral, left superficial femoral, popliteal, peroneal veins as well as superficial greater saphenous vein. 21:15 - Discussed with resident physician for admission. Reviewed the patient?s HPI, PMHx, lab and/or radiology results. Discussed treatment plan. Will consult an admission to the hospitalist. 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 Patient clinically presnting with 2+ edema extending from dorsum of left foot to distal thigh. Laboratory markers demonstrate mildly elevated Potassium of 5.5. Doppler study demonstrates extensive DVT (please see report). Patient began on Heparin infusion, hospitalist consulted for consideration of admission. Final diagnosis is Acute LLE DVT. Critical Care Time Critical Care Time Critical Care Time: Yes Total Critical Care Time (min.): 40 Attestation: The high probability of sudden, clinically significant deterioration in the patient?s condition required the highest level of my preparedness to intervene urgently. The services I provided to this patient were to treat and/or prevent clinically significant deterioration. Services included the following: chart data review, reviewing nursing notes and/or old charts, documentation time, desktop support consultant collaboration regarding findings and treatment options, medication orders and management, direct patient care, vital sign assessments and ordering, interpreting and reviewing diagnostic studies and lab tests. Aggregate critical care time includes only time during which I was engaged in work directly related to the patient?s care, as described above, whether at bedside or elsewhere in the Emergency Department. It did not include time spent performing other reported procedures or the services of residents, students, nurses or physician assistants.
[2025-05-13 19:21] VITALS: BP 162/100; PULSE 96; RESP 19; TEMP 37.1; O2SAT 100
[2025-05-13] MEDS: HEPARIN SOD INJ 5000 UNIT/ML VIAL 4000 UNIT IV (19:43)
[2025-05-13] MEDS: Heparin/D5w 25K 250 ML Ivpb 25,000 UNIT/250 ML BAG 18.029 UNIT IV (19:47)
[2025-05-13 19:52] LABS: Partial Thromboplastin Time 32.6 Seconds (22.0-36.0)
[2025-05-13] MEDS: ONDANSETRON INJ 2 MG/ML INJ 2 ML 4 MG IVP (21:08)
[2025-05-13] MEDS: MORPHINE SULF INJ 4 MG/ML VIAL IVP (21:08)
[2025-05-13 22:01] VITALS: BP 140/75; PULSE 94; RESP 18; TEMP 36.7; O2SAT 96
--- NOTE | 2025-05-13 22:11 | EKG_ITS ---
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
--- NOTE | 2025-05-13 22:13 | ESHP_ITS ---
<Statement entered by Xu Barnhart MD - 05/14/25 05:57> I have discussed and was present for the essential components of the history, physical examination, diagnosis, and treatment plan with the resident. I agree with the patient's care as documented by the resident and amended herein by me. Xu Barnhart MD FACP. 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 Wells Score 4.5 (+clinical signs of DVT +3, previous DVT +1.5) ED Course Summary Vitals: BP 136/86 HR 80 RR 20 T 98.6F O2 sat 95% RA Labs: WBC 12, K 5.5 Cl- 112, BUN 23 Cr 1.0 - baseline T bili <0.3 LFT wnl Coag wnl (PT 10.2 INR 1.0 APTT 32.6) Imaging: Venous Doppler US extensive occlusive deep vein thrombus, involving left common femoral, left superficial femoral, popliteal, peroneal veins as well as superficial greater saphenous vein Treatment: heparin 4,000 unit x1, Heparin drip, morphine sulfate 4mg IVP x1, Zofran 4mg IVP x1 Upon initial examination patient is in good spirits. States she has had left lower extremity swelling and sensitivity for the last 4 days. She went to her PCP for her zolpidem refill who recommended she come to the ED after seeing her extensive leg swelling. She is currently unable to walk without assistance of cane due to pain in her L leg. She states her leg is warm, painful but she denies numbness, coolness, or tingling. She can still move her foot in full range of motion and can wiggle her toes without too much discomfort. 3 days ago she returned from her long haul trip from [place]. She reports a previous DVT in 1986 following of her only child. She denies any history of bleeding disorders or miscarriages. As of the last few days she denies SOB, chest pain, palpitations. She denies history of heart failure or diabetes. She drinks a can of coffee 165mg every morning. She has a tray complexion with telangelectasias that has been present since childhood. 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 Exam Vital Signs Temp Pulse Resp BP Pulse Ox O2 Del Method 98.1 F 94 18 140/75 H 96 Room Air 05/13/25 22:01 05/13/25 22:01 05/13/25 22:01 05/13/25 22:01 05/13/25 22:01 05/13/25 22:01 Narrative Exam GENERAL APPEARANCE: AOx3. NAD, activity normal for age, well developed/ well nourished, no cyanosis, pallor, or diaphoresis. HEENT: Normocephalic atraumatic, no facial trauma, neck is supple. Lids/conjunctiva normal. Mucous membranes moist, nares normal, lips/teeth normal uvula midline without oral pharyngeal erythema, exudate or swelling TMs normal bilaterally. No lymphangitis/lymphedema. Tray complexion with telangelctasias (chronic) CARDIAC: Regular rate and rhythm, S1+S2 heard. No murmurs, rubs, or gallops noted RESPIRATORY: respiratory effort normal, speaks in full sentences, no tripod position, no accessory muscle use. Lungs clear to auscultation without rhonchi, wheezes, rales ABDOMINAL: NBS. Soft, ND/NT. No evidence of fluid wave. No pulsatile masses on exam, rebound tenderness, Motta sign or pain over Mcburney's point. MUSCLES/EXTREMITIES: No abnormal range of motion. L extremity swelling, and warmth from ankle to groin, enlarged circumference, TTP, without erythema, no numbness, toes and feet have full range of motion. Homans+ DERM: Warm, pink and dry. No rashes, dermatoses, petechiae or lesions. NEUROLOGICAL: Speech is clear and appropriate. Normal level of consciousness. 5/5 strength in all extremities. PSYCH: Normal mood and affect. Judgement/competence is appropriate Results: Labs 05/13/25 17:37 05/13/25 21:56 Labs: Short CBC 05/13/25 Range/Units 17:37 WBC 12.0 H (3.6-11.0) Thou/mm3 Hgb 13.5 (12.0-16.0) g/dL Hct 41.5 (36.0-46.0) % Plt Count 229 (140-440) Thou/mm3 BMP 05/13/25 17:37 Sodium 139 Potassium 5.5 H Chloride 112 H Carbon Dioxide 20.8 BUN 23 Creatinine 1.0 Glucose 92 Calcium 9.1 Liver Function 05/13/25 Range/Units 17:37 Total Bilirubin < 0.2 L (0.3-1.2) mg/dL AST 15 (0-34) U/L ALT < 7 L (10-49) U/L Alkaline Phosphatase 43 L (46-116) U/L Albumin 4.7 (3.5-5.0) gm/dL Quality Measures Quality Measures none Medications Home Medications and Allergies Allergies Allergy/AdvReac Type Severity Reaction Status Date / Time aspirin AdvReac Intermediate MAKES Verified 05/13/25 15:55 STOMACH BLEED Visit Medications Acetaminophen (Acetaminophen 325 Mg Tablet) 650 mg PO Q6H PRN PRN Reason: Fever >100.4 or pain 1-3 Stop: 06/12/25 22:06 Albuterol/Ipratropium (Albuterol/Ipratropium (Duoneb) Rt Rabia 3 Ml Nebu) 3 ml INH Q4HRRT PREET Stop: 06/12/25 22:59 Docusate Sodium (Docusate Sod 100 Mg Capsule) 100 mg PO QDAY PREET; Protocol Stop: 06/13/25 08:59 Heparin Sodium/Dextrose (Heparin In D5w Ivpb) 25,000 unit in 250 mls @ 18.029 mls/hr IV .[id number] PREET; Protocol Stop: 05/27/25 17:59 Last Admin: 05/13/25 19:47 Dose: 11.9 units/kg/hr, 18.029 mls/hr Ondansetron HCl (Ondansetron Inj 2 Mg/Ml Inj 2 Ml) 4 mg IVP Q6H PRN; Protocol PRN Reason: NAUSEA OR VOMITING Stop: 06/12/25 22:06 Pantoprazole Sodium (Pantoprazole Inj 40 Mg Vial) 40 mg IVP QDAY PREET Stop: 06/13/25 08:59 Zolpidem Tartrate (Zolpidem 5 Mg Tablet) 5 mg PO HS PRN PRN Reason: INSOMNIA Stop: 06/12/25 22:11 Discontinued Medications Heparin Sodium (Porcine) (Heparin Sod Inj 5000 Unit/Ml Vial) 4,000 unit IV X1 ONE; Protocol Stop: 05/13/25 17:56 Last Admin: 05/13/25 19:43 Dose: 4,000 unit Morphine Sulfate (Morphine Sulf Inj 4 Mg/Ml Vial) 4 mg IVP X1 ONE Stop: 05/13/25 20:41 Last Admin: 05/13/25 21:08 Dose: 4 mg Ondansetron HCl (Ondansetron Inj 2 Mg/Ml Inj 2 Ml) 4 mg IVP X1 ONE; Protocol Stop: 05/13/25 20:42 Last Admin: 05/13/25 21:08 Dose: 4 mg Assessment & Plan Plan 59 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 Patient does not attest to any bruising or trauma to leg. Wells Score 4.5 (+clinical signs of DVT +3, previous DVT +1.5). Prior history of DVT from post state. Currently 4 days of leg swelling up to groin, Homans+, no numbness or paresthesias, just pain and swelling, still able to move toes with full range of motion of legs and ankle. Venous doppler US extensive occlusive deep vein thrombus, involving left common femoral, left superficial femoral, popliteal, peroneal veins as well as superficial greater saphenous vein. Labs coags are within normal limits. Started on heparin drip and ordered IR thrombolysis due to extensive proximal occlusions. Not concerned for DVT as patient has no chest pain or SOB, or increased work of breathing, ordered EKG to help support this. Plan: -Heparin drip -Consider eliquis on discharge/outpatient indefinitely -IR infusion thrombolytics ordered -FUP coag panels -FUP EKG:____ -FUP TSH:___ -FUP lipid panel:____ #Hx of COPD #Hx of Asthma On Brezti (budesonide/glycopyrrolate/formoterol fumerate) 2 puffs in AM and PM, albuterol rescue inhaler. Plan: -Duonebs 3ml INH Q4HRRT -O2 nasal cannula PRN #Hx of Insomnia Zolpidem at home Plan: -Zolpidem 5 mg PO HS PRN Health Maintenance: Code status: Full DVT prophylaxis: Heparin drip GI prophylaxis: Protonix Diet: regular Martinez: purewick Lines: PIV Supplemental O2: NC PRN Disposition: Tele for DVT heparin drip Patient seen and reviewed with attending Dr. Barnhart. Note written by Abhi Singleton MD PGY-1
[2025-05-13] MEDS: ALBUTEROL/IPRATROPIUM (Duoneb) RT SOL 3 ML NEBU INH (22:32)
[2025-05-13 22:33] VITALS: PULSE 90; PULSE 94; RESP 20; RESP 22; RESP 98; O2SAT 99
[2025-05-13 22:42] LABS: Alanine Aminotransferase 8 U/L (10-49); Albumin, Serum 4.4 gm/dL (3.5-5.0); Albumin/Globulin Ratio 1.6 (1.2-2.2); Alkaline Phosphatase 42 U/L (46-116); Anion Gap 7 (7-16); Aspartate Amino Transferase 15 U/L (0-34); BUN/Creatinine Ratio 19 Ratio (12-20); Bilirubin,Total 0.2 mg/dL (0.3-1.2); Blood Urea Nitrogen 17 mg/dL (9-23); Calcium 9.4 mg/dL (8.3-10.6); Calcium (Corrected) 9.4 mg/dL (8.5-10.1); Carbon Dioxide 20.7 mMol/L (20.0-31.0); Chloride 112 mMol/L (98-107); Creatinine (Component) 0.9 mg/dL (0.6-1.3); Estimated Creatinine Clearance 101.7 mL/min (>60); Globulin 2.7 gm/dL (2.3-3.5); Glucose 101 mg/dL (74-106); Osmolality,Calculated 280 (275-295); Potassium 5.0 mMol/L (3.4-5.1); Sodium 140 mMol/L (136-145); Total Protein 7.1 gm/dL (5.7-8.2); eGFR > 60 See Note
[2025-05-14] VITALS (12 sets, daily range): BP systolic 97–140; BP diastolic 61–75; PULSE 73–88; RESP 12–97; TEMP 36.2–36.9; O2SAT 90–100; BMI 38.7
--- NOTE | 2025-05-14 00:36 | PC.NURSE ---
Pt has orders for a hansen cath. Pt does not want a hansen at this time. We will use a bedpan per pt request or a perwick.
[2025-05-14] MEDS: ACETAMINOPHEN 325 MG TABLET 650 MG PO ×2 (00:43→06:23)
[2025-05-14] MEDS: MORPHINE SULF INJ 4 MG/ML VIAL 2 MG IVP ×5 (02:07→22:51)
[2025-05-14 06:49] LABS: Basophils # (Auto) 0.0 Thou/mm3 (0.0-0.2); Basophils % (Auto) 0 % (0-2.5); Eosinophils # (Auto) 0.2 Thou/mm3 (0.0-0.5); Eosinophils % (Auto) 2 % (0-10); Hematocrit 39.8 % (36.0-46.0); Hemoglobin 13.1 g/dL (12.0-16.0); Immature Granulocytes Auto 0.07 Thou/mm3 (0.00-0.00); Lymphocytes # (Auto) 2.6 Thou/mm3 (1.0-4.8); Lymphocytes % (Auto) 26 % (10-50); Mean Corpuscular HGB Conc 32.9 g/dl (31.0-37.0); Mean Corpuscular Hemoglobin 32.4 pg (25.0-35.0); Mean Corpuscular Volume 99 fL (80-100); Monocytes # (Auto) 1.0 Thou/mm3 (0.0-0.8); Monocytes % (Auto) 10 % (0-12); Neutrophils # (Auto) 6.2 Thou/mm3 (1.8-7.7); Neutrophils % (Auto) 61 % (37-80); Nucleated Red Blood Cell # 0.00 Thou/mm3 (0.00-0.00); Nucleated Red Blood Cell % 0 /100 WBC (0); Platelet Count 232 Thou/mm3 (140-440); RDW Standard Deviation 52.0 fL (36.4-46.3); Red Blood Count 4.04 Miln/mm3 (4.00-5.20); White Blood Count 10.0 Thou/mm3 (3.6-11.0)
[2025-05-14 07:18] LABS: Alanine Aminotransferase < 7 U/L (10-49); Albumin, Serum 4.3 gm/dL (3.5-5.0); Albumin/Globulin Ratio 1.8 (1.2-2.2); Alkaline Phosphatase 40 U/L (46-116); Anion Gap 5 (7-16); Aspartate Amino Transferase 14 U/L (0-34); BUN/Creatinine Ratio 20 Ratio (12-20); Bilirubin,Total 0.2 mg/dL (0.3-1.2); Blood Urea Nitrogen 16 mg/dL (9-23); Calcium 8.7 mg/dL (8.3-10.6); Calcium (Corrected) 8.7 mg/dL (8.5-10.1); Carbon Dioxide 22.0 mMol/L (20.0-31.0); Cardiac Risk Estimate 3.8 RATIO (3.7-5.6); Chloride 109 mMol/L (98-107); Cholesterol 91 mg/dL (132-200); Creatinine (Component) 0.8 mg/dL (0.6-1.3); Estimated Creatinine Clearance 90.4 mL/min (>60); Globulin 2.4 gm/dL (2.3-3.5); Glucose 87 mg/dL (74-106); HDL Cholesterol 24 mg/dL (40-60); LDL Cholesterol,Calculated 15 mg/dL (0-130); Magnesium 1.9 mg/dL (1.6-2.6); Osmolality,Calculated 272 (275-295); Phosphorous 3.1 mg/dL (2.4-5.1); Potassium 4.9 mMol/L (3.4-5.1); Sodium 136 mMol/L (136-145); Thyroid Stimulating Hormone 1.39 uIU/mL (0.55-4.78); Total Protein 6.7 gm/dL (5.7-8.2); Triglycerides 259 mg/dL (30-150); eGFR > 60 See Note
[2025-05-14 07:27] LABS: Partial Thromboplastin Time 65.2 Seconds (22.0-36.0)
--- NOTE | 2025-05-14 08:00 | ESPR_ITS ---
<Statement entered by Michelle Patel MD - 05/25/25 08:30> I reviewed above note and agree with findings and plans. I have also personally examined the patient with medicine team and went over assessment and plan with medical team including internet sales director and resident physician. Documentation for date of: 05/14/25 Subjective Subjective Interval history: patient seen and examined at bedside pt endorses increased shortness of breath, new from baseline CTA chest without PE, RUL 3cm nodule and extensive LAD calcifications pending administration of cathflow to L foot for catheter directed thrombolysis. pt pain better tolerated with the dilaudid given this morning. Exam Vital Signs Temp Pulse Resp BP Pulse Ox O2 Del Method O2 Flow Rate 98.5 F 73 21 H 108/62 96 Room Air 20 05/14/25 04:00 05/14/25 04:00 05/14/25 04:00 05/14/25 04:00 05/14/25 04:00 05/14/25 04:00 05/14/25 03:15 Narrative Exam GENERAL APPEARANCE: AOx3. NAD, activity normal for age, well developed/ well nourished, no cyanosis, pallor, or diaphoresis. HEENT: Normocephalic atraumatic, no facial trauma, neck is supple. Lids/conjunctiva normal. Mucous membranes moist, nares normal, large neck circumference CARDIAC: Regular rate and rhythm, S1+S2 heard. No murmurs, rubs, or gallops noted RESPIRATORY: respiratory effort normal, speaks in full sentences, no tripod position, no accessory muscle use. Lungs clear to auscultation without rhonchi, wheezes, rales ABDOMINAL: NBS. Soft, ND/NT. No evidence of fluid wave. No pulsatile masses on exam, rebound tenderness, MUSCLES/EXTREMITIES: No abnormal range of motion. L extremity swelling, and warmth from ankle to groin, enlarged circumference, TTP, without erythema, no numbness, toes and feet have full range of motion. pulses palpable 1+ bilaterally DERM: Warm, pink and dry. No rashes, dermatoses, petechiae or lesions. NEUROLOGICAL: Speech is clear and appropriate. Normal level of consciousness. 5/5 strength in all extremities. PSYCH: Normal mood and affect. Judgement/competence is appropriate Objective Labs 05/14/25 06:25 05/14/25 06:25 Labs: Laboratory Results - last 24 hr 05/13/25 05/13/25 05/14/25 17:37 21:56 06:25 WBC 12.0 H 10.0 RBC 4.24 4.04 Hgb 13.5 13.1 Hct 41.5 39.8 MCV 98 99 MCH 31.8 32.4 MCHC 32.5 32.9 RDW Std Deviation 51.4 H 52.0 H Plt Count 229 232 Neut % (Auto) 66 61 Lymph % (Auto) 22 26 [place] % (Auto) 10 10 Eos % (Auto) 2 2 Baso % (Auto) 0 0 Neut # (Auto) 7.9 H 6.2 Lymph # (Auto) 2.6 2.6 [place] # (Auto) 1.2 H 1.0 H Eos # (Auto) 0.2 0.2 Baso # (Auto) 0.0 0.0 Immature Gran # (Auto) 0.10 H 0.07 H Absolute Nucleated RBC 0.00 0.00 Immature Gran % 1 H 1 H Nucleated RBC % 0 0 PT 10.2 INR 1.0 APTT 32.6 65.2 H D Sodium 139 140 136 Potassium 5.5 H 5.0 D 4.9 Chloride 112 H 112 H 109 H Carbon Dioxide 20.8 20.7 22.0 Anion Gap 6 L 7 5 L BUN 23 17 16 Creatinine 1.0 0.9 0.8 Estim Creat Clear Calc 91.5 101.7 90.4 eGFR > 60 > 60 > 60 BUN/Creatinine Ratio 23 H 19 20 Glucose 92 101 87 Calculated Osmolality 281 280 272 L Calcium 9.1 9.4 8.7 Corrected Calcium 9.1 9.4 8.7 Phosphorus 3.1 Magnesium 1.9 Total Bilirubin < 0.2 L 0.2 L 0.2 L AST 15 15 14 ALT < 7 L 8 L < 7 L Alkaline Phosphatase 43 L 42 L 40 L Total Protein 7.2 7.1 6.7 Albumin 4.7 4.4 4.3 Globulin 2.5 2.7 2.4 Albumin/Globulin Ratio 1.9 1.6 1.8 Triglycerides 259 H Cholesterol 91 L LDL Cholesterol, Calc 15 HDL Cholesterol 24 L Cholesterol/HDL Ratio 3.8 TSH 1.39 Quality Measures Quality Measures VTE prophylaxis Assessment & Plan Assessment Current Active Medications: Generic Name Dose Route Start Last Admin Trade Name Freq PRN Reason Stop Dose Admin Acetaminophen 650 mg 05/13/25 22:07 05/14/25 06:23 Acetaminophen 325 Mg Tablet PO 06/12/25 22:06 650 mg Q6H PRN Administration Fever >100.4 or pain 1-3 Hydrocodone Bitart/Acetaminophen 1 tab 05/14/25 01:53 Hydrocodone/Apap 5/325 Tablet PO 05/19/25 01:52 Q4HR PRN pain 4-6 Albuterol/Ipratropium 3 ml 05/14/25 00:31 Albuterol/Ipratropium (Duoneb) Rt Rabia 3 Ml Nebu INH 06/12/25 22:59 Q4HRRT PRN shortness of breath Docusate Sodium 100 mg 05/14/25 09:00 Docusate Sod 100 Mg Capsule PO 06/13/25 08:59 QDAY [facility] Protocol Heparin Sodium/Dextrose 25,000 unit in 250 mls @ 18.029 mls/hr 05/13/25 18:00 05/13/25 19:47 Heparin In D5w Ivpb IV 05/27/25 17:59 11.9 units/kg/hr .[id number] PREET 18.029 mls/hr Protocol Administration 11.9 UNITS/KG/HR Morphine Sulfate 2 mg 05/14/25 01:53 05/14/25 05:34 Morphine Sulf Inj 4 Mg/Ml Vial IVP 05/19/25 01:52 2 mg Q4HR PRN Administration Pain 7-10 Ondansetron HCl 4 mg 05/13/25 22:07 Ondansetron Inj 2 Mg/Ml Inj 2 Ml IVP 06/12/25 22:06 Q6H PRN NAUSEA OR VOMITING Protocol Pantoprazole Sodium 40 mg 05/14/25 09:00 Pantoprazole Inj 40 Mg Vial IVP 06/13/25 08:59 QDAY [facility] Zolpidem Tartrate 5 mg 05/13/25 22:12 Zolpidem 5 Mg Tablet PO 06/12/25 22:11 HS PRN INSOMNIA Plan Plan 59 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 Wells Score 4.5. pending clearance for protocol to admin cathflow for catheter directed thrombolysis. 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 Patient does not attest to any bruising or trauma to leg. Wells Score 4.5 (+clinical signs of DVT +3, previous DVT +1.5). Prior history of DVT from post state. Currently 4 days of leg swelling up to groin, Homans+, no numbness or paresthesias, just pain and swelling, still able to move toes with full range of motion of legs and ankle. Venous doppler US extensive occlusive deep vein thrombus, involving left common femoral, left superficial femoral, popliteal, peroneal veins as well as superficial greater saphenous vein. Labs coags are within normal limits. Started on heparin drip and ordered IR thrombolysis due to extensive proximal occlusions. Not concerned for DVT as patient has no chest pain or SOB, or increased work of breathing, ordered EKG to help support this. Dx -CT chest angio with no PE -FUP coag : elevated PTT (ongoing heparin drip) -FUP EKG:nl sinus with pvcs -FUP TSH: wnl -FUP lipid panel:Elevated triglycerides and low HDL Pain -APAP 650 for mild pain -Morphine 2mg IV q4hr for moderate pain -dilaudid 1.5 q4hr for severe pain Plan: -Heparin drip for 72 hrs (05/13- -Consider eliquis on discharge -Cath flow ordered, and L foot IV placed by nurse. -pending clearance from charge nurse on tele for monitoring protocol for administration of thrombolysis with serial dvt us. #Tobacco Use disorder #COPD, not on home o2 #3cm RUL pulmonary nodule #Suspected PAD #Asthma On Brezti (budesonide/glycopyrrolate/formoterol fumerate) 2 puffs in AM and PM, albuterol rescue inhaler. pt smokes about .75 of a pack /day for the past several years, Pack years ~[address] chest angio with 3cm nodule, Plan: -Duonebs 3ml INH Q4HRRT -O2 nasal cannula PRN -Nicotine patch 21 qday -consider outpatient RAMA given claudications symptoms -smoking cessation edcuation if interested to be provided upon discharge -recommend outpatient low dose CT in 6 months for monitoring pulmonary nodule. CAD CT angio gest with extensive calcifications of the LAD Plan: Consider outpatient cardiology work up given stable anginal symptoms HLD elevated triglycerides and low HDL Plan -initiate statin upon discharge Atorvastatin 40mg #Hx of Insomnia Zolpidem at home Plan: -Zolpidem 5 mg PO HS PRN Health Maintenance: Code status: Full DVT prophylaxis: Heparin drip, pending cathflow for L catheter directed thrombolysis GI prophylaxis: Protonix Diet: regular Martinez: purewick Lines: PIV Supplemental O2: NC PRN Disposition: Tele for DVT heparin drip, L foot PIV for catheter directed Thrombolysis Plan discussed with my attending Dr. Amanda Cho MD PGY1
--- NOTE | 2025-05-14 08:07 | XR_ITS ---
Examination: CTA chest with intravenous contrast 2-D reconstructions 3-D reconstructions, vascular Date and time of exam: May 14, 2025, 10:11 p.m. INDICATIONS: Chest pain shortness of breath onset today CTDI: vol (mGy) 23.4 DLP: (mGycm) 492 Technique: Multiple axial sections of the thorax have been obtained. 3 mm slice thickness, from below the hemidiaphragms to above the apices of the lungs. Mediastinal and lung density settings have been obtained. 2-D sagittal and coronal reconstructions. 3-D angiographic renderings, 3-D volume renderings, 3D post processing, vascular maximum intensity projections obtained. Contrast administered is 100 cc Isovue-370. Low dose protocols were performed. One or more of the following dose reduction techniques were used; automated exposure control, adjustment of the mA and/or KV according to patient size, use of iterative reconstruction technique. Findings: No thoracic aortic aneurysmal dilatation or dissection Main pulmonary artery segment 38 mm Opacification of peripheral pulmonary artery branches is not optimal No filling defects depicted Heavy calcification left anterior descending coronary artery moderate calcification right coronary artery Mild enlargement cardiac contour 3 mm pulmonary nodule right upper lobe No pneumonia or pulmonary edema No visualized liver or splenic lesion No gallstones No pancreatic or adrenal mass IMPRESSION: Pulmonary artery hypertension No pulmonary artery emboli depicted Heavy calcification left anterior descending coronary artery 3 mm pulmonary nodule right upper lobe, with the study as baseline recommend 6-month follow-up CT chest without contrast
[2025-05-14] MEDS: HYDROcodone/APAP 5/325 TABLET 1 TAB PO ×2 (08:55→21:30)
[2025-05-14] MEDS: DOCUSATE SOD 100 MG CAPSULE PO (08:55)
[2025-05-14] MEDS: NICOTINE PATCH 21 MG/24 HR PATCH.TD24 TOP (08:56)
[2025-05-14] MEDS: Heparin/D5w 25K 250 ML Ivpb 25,000 UNIT/250 ML BAG 18.029 UNIT IV (09:02)
[2025-05-14 10:07] LABS: Glucose Estimated Average 117 mg/dL (80-131); Hemoglobin A1C 5.7 % Hgb (4.8-6.0)
[2025-05-14] MEDS: HYDROmorphone INJ 2 MG/ML VIAL IVP (10:28)
--- NOTE | 2025-05-14 11:10 | PC.NURSE ---
[address] Husain regarding order for IR thrombolitic infusion. Dr. Husain stated he was going to talk to his attending and to Dr. Matta to see what recommendations they give and would call back if IR team needed to proceed.
[2025-05-14] MEDS: ONDANSETRON INJ 2 MG/ML INJ 2 ML 4 MG IVP (11:36)
--- NOTE | 2025-05-14 11:52 | PC.SS ---
Addendum entered by Liseth Tamez 05/14/25 14:22: rounding note: Poss d/c over weekend. Original Note: Patient is alert/oriented. Patient was able to verify demographics. Patient was admitted for DVT. 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 Patient is independent with ADL's. No DME. Patient resides with her parents. Patient has had no major health problems. PCP: [facility] with Beckie Robertson NP. Pharmacy: [facility]. Patient will return home once discharged. Alt medical decision maker: Mother, Makenna Carnes,
[2025-05-14 13:46] LABS: Partial Thromboplastin Time 72.8 Seconds (22.0-36.0)
[2025-05-14] MEDS: HYDROmorphone INJ 2 MG/ML VIAL 1.5 MG IVP (15:37)
[2025-05-14] MEDS: CATHFLO (ALTEPLASE) INJ 4 MG in SODIUM CHLORIDE 0.9% 76 ML, Sterile Water 4 ML 14 MG IV ×2 (16:17→21:21)
[2025-05-15] VITALS (13 sets, daily range): BP systolic 113–124; BP diastolic 71–80; PULSE 71–82; RESP 16–97; TEMP 36.1–36.4; O2SAT 92–97
[2025-05-15] MEDS: HYDROmorphone INJ 2 MG/ML VIAL 1.5 MG IVP ×4 (02:23→19:26)
[2025-05-15] MEDS: CATHFLO (ALTEPLASE) INJ 4 MG in SODIUM CHLORIDE 0.9% 76 ML, Sterile Water 4 ML 14 MG IV ×4 (03:38→20:28)
[2025-05-15 06:07] LABS: Basophils # (Auto) 0.0 Thou/mm3 (0.0-0.2); Basophils % (Auto) 0 % (0-2.5); Eosinophils # (Auto) 0.0 Thou/mm3 (0.0-0.5); Eosinophils % (Auto) 0 % (0-10); Hematocrit 36.0 % (36.0-46.0); Hemoglobin 11.6 g/dL (12.0-16.0); Immature Granulocytes Auto 0.06 Thou/mm3 (0.00-0.00); Lymphocytes # (Auto) 1.4 Thou/mm3 (1.0-4.8); Lymphocytes % (Auto) 16 % (10-50); Mean Corpuscular HGB Conc 32.2 g/dl (31.0-37.0); Mean Corpuscular Hemoglobin 31.5 pg (25.0-35.0); Mean Corpuscular Volume 98 fL (80-100); Monocytes # (Auto) 1.0 Thou/mm3 (0.0-0.8); Monocytes % (Auto) 11 % (0-12); Neutrophils # (Auto) 6.6 Thou/mm3 (1.8-7.7); Neutrophils % (Auto) 72 % (37-80); Nucleated Red Blood Cell # 0.00 Thou/mm3 (0.00-0.00); Nucleated Red Blood Cell % 0 /100 WBC (0); Platelet Count 269 Thou/mm3 (140-440); RDW Standard Deviation 49.1 fL (36.4-46.3); Red Blood Count 3.68 Miln/mm3 (4.00-5.20); White Blood Count 9.1 Thou/mm3 (3.6-11.0)
[2025-05-15 07:00] LABS: Alanine Aminotransferase < 7 U/L (10-49); Albumin, Serum 4.1 gm/dL (3.5-5.0); Albumin/Globulin Ratio 1.6 (1.2-2.2); Alkaline Phosphatase 37 U/L (46-116); Anion Gap 6 (7-16); Aspartate Amino Transferase 13 U/L (0-34); BUN/Creatinine Ratio 18 Ratio (12-20); Bilirubin,Total < 0.2 mg/dL (0.3-1.2); Blood Urea Nitrogen 11 mg/dL (9-23); Calcium 8.5 mg/dL (8.3-10.6); Calcium (Corrected) 8.5 mg/dL (8.5-10.1); Carbon Dioxide 24.7 mMol/L (20.0-31.0); Chloride 105 mMol/L (98-107); Creatinine (Component) 0.6 mg/dL (0.6-1.3); Estimated Creatinine Clearance 120.9 mL/min (>60); Globulin 2.6 gm/dL (2.3-3.5); Glucose 97 mg/dL (74-106); Magnesium 2.1 mg/dL (1.6-2.6); Osmolality,Calculated 271 (275-295); Phosphorous 2.6 mg/dL (2.4-5.1); Potassium 5.0 mMol/L (3.4-5.1); Sodium 136 mMol/L (136-145); Total Protein 6.7 gm/dL (5.7-8.2); eGFR > 60 See Note
[2025-05-15] MEDS: ONDANSETRON INJ 2 MG/ML INJ 2 ML 4 MG IVP (07:11)
--- NOTE | 2025-05-15 08:19 | ESPR_ITS ---
<Statement entered by Michelle Patel MD - 05/25/25 08:31> I reviewed above note and agree with findings and plans. I have also personally examined the patient with medicine team and went over assessment and plan with medical team including purchasing intern and resident physician. <Statement entered by Dean Vaz MD - 05/15/25 17:28> Patient is seen at bedside continues to complain of significant pain in her left lower extremity. Patient is currently on catheter directed thrombolysis. Repeat ultrasound shows extensive DVT involving the left common femoral superficial femoral popliteal and peroneal veins and there is no significant improvement in the ultrasound. Will continue direct thrombolysis and repeat ultrasound every day before transitioning patient to oral anticoagulation. Patient was seen and examined by me personally. I have directly supervised and reviewed documentation by the team resident and agree with its findings. ------- Plan of care was discussed with the attending, Dr. Amanda Vaz, PGY-2 Documentation for date of: 05/15/25 Subjective Subjective Interval history: Patient seen and examined at bedside. she continues with the catheter directed thrombolysis with cath flow, 10 am DVT US with no significant improvement Exam Vital Signs Temp Pulse Resp BP Pulse Ox O2 Del Method O2 Flow Rate 97.0 F 76 17 116/71 93 L Room Air 2 05/15/25 04:00 05/15/25 04:00 05/15/25 04:00 05/15/25 04:00 05/15/25 04:00 05/15/25 04:00 05/15/25 00:00 Narrative Exam GENERAL APPEARANCE: AOx3. NAD, activity normal for age, well developed/ well nourished, no cyanosis, pallor, or diaphoresis. HEENT: Normocephalic atraumatic, no facial trauma, neck is supple. Lids/conjunctiva normal. Mucous membranes moist, nares normal, large neck circumference CARDIAC: Regular rate and rhythm, S1+S2 heard. No murmurs, rubs, or gallops noted RESPIRATORY: respiratory effort normal, speaks in full sentences, no tripod position, no accessory muscle use. Lungs clear to auscultation without rhonchi, wheezes, rales ABDOMINAL: NBS. Soft, ND/NT. No evidence of fluid wave. No pulsatile masses on exam, rebound tenderness, MUSCLES/EXTREMITIES: No abnormal range of motion. L extremity swelling, and warmth from ankle to groin, enlarged circumference, TTP, without erythema, no numbness, toes and feet have full range of motion. pulses palpable 1+ bilaterally DERM: Warm, pink and dry. No rashes, dermatoses, petechiae or lesions. NEUROLOGICAL: Speech is clear and appropriate. Normal level of consciousness. 5/5 strength in all extremities. PSYCH: Normal mood and affect. Judgement/competence is appropriate Objective Labs 05/15/25 05:12 05/15/25 05:12 Labs: Laboratory Results - last 24 hr 05/14/25 05/14/25 05/15/25 06:25 12:35 05:12 WBC 9.1 RBC 3.68 L Hgb 11.6 L Hct 36.0 MCV 98 MCH 31.5 MCHC 32.2 RDW Std Deviation 49.1 H Plt Count 269 D Neut % (Auto) 72 Lymph % (Auto) 16 [place] % (Auto) 11 Eos % (Auto) 0 Baso % (Auto) 0 Neut # (Auto) 6.6 Lymph # (Auto) 1.4 [place] # (Auto) 1.0 H Eos # (Auto) 0.0 Baso # (Auto) 0.0 Immature Gran # (Auto) 0.06 H Absolute Nucleated RBC 0.00 Immature Gran % 1 H Nucleated RBC % 0 APTT 72.8 H Sodium 136 Potassium 5.0 Chloride 105 Carbon Dioxide 24.7 Anion Gap 6 L BUN 11 Creatinine 0.6 Estim Creat Clear Calc 120.9 eGFR > 60 BUN/Creatinine Ratio [address] Glu mg/dL 117 Hemoglobin A1c 5.7 Calculated Osmolality 271 L Calcium 8.5 Corrected Calcium 8.5 Phosphorus 2.6 Magnesium 2.1 Total Bilirubin < 0.2 L AST 13 ALT < 7 L Alkaline Phosphatase 37 L Total Protein 6.7 Albumin 4.1 Globulin 2.6 Albumin/Globulin Ratio 1.6 Quality Measures Quality Measures VTE prophylaxis Assessment & Plan Assessment Current Active Medications: Generic Name Dose Route Start Last Admin Trade Name Freq PRN Reason Stop Dose Admin Acetaminophen 650 mg 05/13/25 22:07 05/14/25 06:23 Acetaminophen 325 Mg Tablet PO 06/12/25 22:06 650 mg Q6H PRN Administration Fever >100.4 or pain 1-3 Hydrocodone Bitart/Acetaminophen 1 tab 05/14/25 01:53 05/14/25 21:30 Hydrocodone/Apap 5/325 Tablet PO 05/19/25 01:52 1 tab Q4HR PRN Administration pain 4-6 Albuterol/Ipratropium 3 ml 05/14/25 00:31 Albuterol/Ipratropium (Duoneb) Rt Rbaia 3 Ml Nebu INH 06/12/25 22:59 Q4HRRT PRN shortness of breath Docusate Sodium 100 mg 05/14/25 09:00 05/14/25 08:55 Docusate Sod 100 Mg Capsule PO 06/13/25 08:59 100 mg QDAY PREET Administration Protocol Hydromorphone HCl 1.5 mg 05/14/25 10:37 05/15/25 02:23 Hydromorphone Inj 2 Mg/Ml Vial IVP 05/19/25 10:36 1.5 mg Q4HR PRN Administration Pain 7-10 Protocol Alteplase, Recombinant 4 mg/ 80 mls @ 14 mls/hr 05/14/25 16:00 05/15/25 03:38 Sodium Chloride/ Sterile Water IV 05/17/25 15:59 0.7 mg/hr .[id number] PREET 14 mls/hr 0.7 MG/HR Administration Morphine Sulfate 2 mg 05/14/25 01:53 05/14/25 22:51 Morphine Sulf Inj 4 Mg/Ml Vial IVP 05/19/25 01:52 2 mg Q4HR PRN Administration Pain 7-10 Nicotine 21 mg 05/14/25 08:10 05/14/25 09:31 Nicotine Patch 21 Mg/24 Hr Patch.Td24 TOP 06/13/25 08:09 Not Given QDAY PREET Ondansetron HCl 4 mg 05/13/25 22:07 05/15/25 07:11 Ondansetron Inj 2 Mg/Ml Inj 2 Ml IVP 06/12/25 22:06 4 mg Q6H PRN Administration NAUSEA OR VOMITING Protocol Pantoprazole Sodium 40 mg 05/14/25 09:00 05/14/25 08:56 Pantoprazole Inj 40 Mg Vial IVP 06/13/25 08:59 40 mg QDAY PREET Administration Zolpidem Tartrate 5 mg 05/13/25 22:12 Zolpidem 5 Mg Tablet PO 06/12/25 22:11 HS PRN INSOMNIA Plan Plan 59 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 Wells Score 4.5. undergoing cathflow for catheter directed thrombolysis. 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 Patient does not attest to any bruising or trauma to leg. Wells Score 4.5 (+clinical signs of DVT +3, previous DVT +1.5). Prior history of DVT from [place] state. Currently 4 days of leg swelling up to groin, Homans+, no numbness or paresthesias, just pain and swelling, still able to move toes with full range of motion of legs and ankle. Venous doppler US extensive occlusive deep vein thrombus, involving left common femoral, left superficial femoral, popliteal, peroneal veins as well as superficial greater saphenous vein. Labs coags are within normal limits. Started on heparin drip and ordered IR thrombolysis due to extensive proximal occlusions. Not concerned for DVT as patient has no chest pain or SOB, or increased work of breathing, ordered EKG to help support this. 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 -Cath flow drip, and L foot IV placed by nurse. #Tobacco Use disorder #COPD, not on home o2 #3cm RUL pulmonary nodule #Suspected PAD #Asthma On Brezti (budesonide/glycopyrrolate/formoterol fumerate) 2 puffs in AM and PM, albuterol rescue inhaler. pt smokes about .75 of a pack /day for the past several years, Pack years ~[address] chest angio with 3cm nodule, Plan: -Duonebs 3ml INH Q4HRRT -O2 nasal cannula PRN -Nicotine patch 21 qday -consider outpatient RAMA given claudications symptoms -smoking cessation edcuation if interested to be provided upon discharge -recommend outpatient low dose CT in 6 months for monitoring pulmonary nodule. CAD CT angio gest with extensive calcifications of the LAD Plan: Consider outpatient cardiology work up given stable anginal symptoms HLD elevated triglycerides and low HDL Plan -initiate statin upon discharge Atorvastatin 40mg #Hx of Insomnia Zolpidem at home Plan: -Zolpidem 5 mg PO HS PRN Health Maintenance: Code status: Full DVT prophylaxis: Heparin drip, pending cathflow for L catheter directed thrombolysis GI prophylaxis: Protonix Diet: regular Martinez: purewick Lines: PIV Supplemental O2: NC PRN Disposition: Tele for DVT heparin drip, L foot PIV for catheter directed Thrombolysis Plan discussed with my attending Dr. Patel and my senior Dr. Milind Cho MD PGY1
[2025-05-15] MEDS: DOCUSATE SOD 100 MG CAPSULE PO (08:50)
[2025-05-15] MEDS: NICOTINE PATCH 21 MG/24 HR PATCH.TD24 TOP (08:50)
--- NOTE | 2025-05-15 10:00 | XR_ITS ---
Examination: Duplex scan of the lower extremity, unilateral left Date and time of exam: May 15, 2025, 1107 hours INDICATIONS: Left leg swelling and pain today, history extensive DVT Technique: Duplex scan of the extremity veins using B-mode/grayscale imaging and Doppler spectral analysis and color flow Attention is directed to internal echogenicity, compression and augmentation involving these veins, color flow assessment, spectral analysis Findings: There remains extensive DVT involving left common femoral superficial femoral popliteal and peroneal veins IMPRESSION: No significant improvement on today's venogram
[2025-05-15] MEDS: HYDROcodone/APAP 5/325 TABLET 1 TAB PO (10:19)
--- NOTE | 2025-05-15 14:29 | PC.SS ---
Rounding: Thrombolysis, pending US
[2025-05-15] MEDS: MORPHINE SULF INJ 4 MG/ML VIAL 2 MG IVP (18:32)
[2025-05-15] MEDS: ZOLPIDEM 5 MG TABLET PO (20:37)
[2025-05-16] VITALS (15 sets, daily range): BP systolic 110–130; BP diastolic 76–81; PULSE 71–83; RESP 16–97; TEMP 36.2–36.4; O2SAT 92–99; BMI 38.6
[2025-05-16] MEDS: HYDROmorphone INJ 2 MG/ML VIAL 1.5 MG IVP ×5 (01:00→21:27)
[2025-05-16] MEDS: ONDANSETRON INJ 2 MG/ML INJ 2 ML 4 MG IVP (01:00)
[2025-05-16] MEDS: CATHFLO (ALTEPLASE) INJ 4 MG in SODIUM CHLORIDE 0.9% 76 ML, Sterile Water 4 ML 14 MG IV ×4 (02:16→21:03)
[2025-05-16 05:41] LABS: Basophils # (Auto) 0.0 Thou/mm3 (0.0-0.2); Basophils % (Auto) 0 % (0-2.5); Eosinophils # (Auto) 0.0 Thou/mm3 (0.0-0.5); Eosinophils % (Auto) 0 % (0-10); Hematocrit 36.9 % (36.0-46.0); Hemoglobin 12.1 g/dL (12.0-16.0); Immature Granulocytes Auto 0.05 Thou/mm3 (0.00-0.00); Lymphocytes # (Auto) 1.3 Thou/mm3 (1.0-4.8); Lymphocytes % (Auto) 15 % (10-50); Mean Corpuscular HGB Conc 32.8 g/dl (31.0-37.0); Mean Corpuscular Hemoglobin 32.3 pg (25.0-35.0); Mean Corpuscular Volume 98 fL (80-100); Monocytes # (Auto) 0.8 Thou/mm3 (0.0-0.8); Monocytes % (Auto) 9 % (0-12); Neutrophils # (Auto) 6.4 Thou/mm3 (1.8-7.7); Neutrophils % (Auto) 75 % (37-80); Nucleated Red Blood Cell # 0.00 Thou/mm3 (0.00-0.00); Nucleated Red Blood Cell % 0 /100 WBC (0); Platelet Count 223 Thou/mm3 (140-440); RDW Standard Deviation 49.5 fL (36.4-46.3); Red Blood Count 3.75 Miln/mm3 (4.00-5.20); White Blood Count 8.5 Thou/mm3 (3.6-11.0)
[2025-05-16] MEDS: HYDROcodone/APAP 5/325 TABLET 1 TAB PO (05:41)
[2025-05-16 06:31] LABS: Alanine Aminotransferase < 7 U/L (10-49); Albumin, Serum 4.1 gm/dL (3.5-5.0); Albumin/Globulin Ratio 1.5 (1.2-2.2); Alkaline Phosphatase 39 U/L (46-116); Anion Gap 5 (7-16); Aspartate Amino Transferase 14 U/L (0-34); BUN/Creatinine Ratio 17 Ratio (12-20); Bilirubin,Total < 0.2 mg/dL (0.3-1.2); Blood Urea Nitrogen 10 mg/dL (9-23); Calcium 8.4 mg/dL (8.3-10.6); Calcium (Corrected) 8.4 mg/dL (8.5-10.1); Carbon Dioxide 26.8 mMol/L (20.0-31.0); Chloride 104 mMol/L (98-107); Creatinine (Component) 0.6 mg/dL (0.6-1.3); Estimated Creatinine Clearance 120.3 mL/min (>60); Globulin 2.8 gm/dL (2.3-3.5); Glucose 100 mg/dL (74-106); Magnesium 2.0 mg/dL (1.6-2.6); Osmolality,Calculated 270 (275-295); Phosphorous 2.2 mg/dL (2.4-5.1); Potassium 4.7 mMol/L (3.4-5.1); Sodium 136 mMol/L (136-145); Total Protein 6.9 gm/dL (5.7-8.2); eGFR > 60 See Note
--- NOTE | 2025-05-16 07:48 | ESPR_ITS ---
<Statement entered by Michelle Patel MD - 05/25/25 08:33> I reviewed above note and agree with findings and plans. I have also personally examined the patient with medicine team and went over assessment and plan with medical team including production internship and resident physician. <Statement entered by Dean Vaz MD - 05/16/25 16:40> Pt is seen at bedside, continues to have pain in the Left LE due to DVT. Will continue direct thrombolysis with TPA. Repeat US this morning is unchanged. Patient was seen and examined by me personally. I have directly supervised and reviewed documentation by the team resident and agree with its findings. ------- Plan of care was discussed with the attending, Dr. Amanda Vaz, PGY-2 Documentation for date of: 05/16/25 Subjective Subjective Interval history: NAEO. SpO2 92-97% RA. Denies acute shortness of breath. Continued left medial LE pain. No new acute concerns. Exam Vital Signs Temp Pulse Resp BP Pulse Ox O2 Del Method O2 Flow Rate 97.3 F 73 19 130/78 97 Nasal Cannula 2 05/16/25 04:00 05/16/25 05:00 05/16/25 04:00 05/16/25 04:00 05/16/25 04:00 05/16/25 04:00 05/15/25 16:00 Narrative Exam GENERAL APPEARANCE: AOx3. NAD, activity normal for age, well developed/ well nourished, no cyanosis, pallor, or diaphoresis. HEENT: Normocephalic atraumatic, no facial trauma, neck is supple. Lids/conjunctiva normal. Mucous membranes moist, nares normal, large neck circumference CARDIAC: Regular rate and rhythm, S1+S2 heard. No murmurs, rubs, or gallops noted RESPIRATORY: respiratory effort normal, speaks in full sentences, no tripod position, no accessory muscle use. Left upper lung wheezing ABDOMINAL: NBS. Soft, ND/NT. No evidence of fluid wave. No pulsatile masses on exam, rebound tenderness, MUSCLES/EXTREMITIES: No abnormal range of motion. L extremity swelling, and warmth from ankle to groin, enlarged circumference, TTP, without erythema, no numbness, toes and feet have full range of motion. pulses palpable 1+ bilaterally DERM: Warm, pink and dry. No rashes, dermatoses, petechiae or lesions. No LLE skin changes NEUROLOGICAL: Speech is clear and appropriate. Normal level of consciousness. 5/5 strength in all extremities. PSYCH: Normal mood and affect. Judgement/competence is appropriate Objective Labs 05/16/25 04:54 05/16/25 04:54 Labs: Laboratory Results - last 24 hr 05/16/25 04:54 WBC 8.5 RBC 3.75 L Hgb 12.1 Hct 36.9 MCV 98 MCH 32.3 MCHC 32.8 RDW Std Deviation 49.5 H Plt Count 223 D Neut % (Auto) 75 Lymph % (Auto) 15 [place] % (Auto) 9 Eos % (Auto) 0 Baso % (Auto) 0 Neut # (Auto) 6.4 Lymph # (Auto) 1.3 [place] # (Auto) 0.8 Eos # (Auto) 0.0 Baso # (Auto) 0.0 Immature Gran # (Auto) 0.05 H Absolute Nucleated RBC 0.00 Immature Gran % 1 H Nucleated RBC % 0 Sodium 136 Potassium 4.7 Chloride 104 Carbon Dioxide 26.8 Anion Gap 5 L BUN 10 Creatinine 0.6 Estim Creat Clear Calc 120.3 eGFR > 60 BUN/Creatinine Ratio 17 Glucose 100 Calculated Osmolality 270 L Calcium 8.4 Corrected Calcium 8.4 L Phosphorus 2.2 L Magnesium 2.0 Total Bilirubin < 0.2 L AST 14 ALT < 7 L Alkaline Phosphatase 39 L Total Protein 6.9 Albumin 4.1 Globulin 2.8 Albumin/Globulin Ratio 1.5 Quality Measures Quality Measures VTE prophylaxis Assessment & Plan Assessment Current Active Medications: Generic Name Dose Route Start Last Admin Trade Name Leviq PRN Reason Stop Dose Admin Acetaminophen 650 mg 05/13/25 22:07 05/14/25 06:23 Acetaminophen 325 Mg Tablet PO 06/12/25 22:06 650 mg Q6H PRN Administration Fever >100.4 or pain 1-3 Hydrocodone Bitart/Acetaminophen 1 tab 05/14/25 01:53 05/16/25 05:41 Hydrocodone/Apap 5/325 Tablet PO 05/19/25 01:52 1 tab Q4HR PRN Administration pain 4-6 Albuterol/Ipratropium 3 ml 05/14/25 00:31 Albuterol/Ipratropium (Duoneb) Rt Rabia 3 Ml Nebu INH 06/12/25 22:59 Q4HRRT PRN shortness of breath Docusate Sodium 100 mg 05/14/25 09:00 05/15/25 08:50 Docusate Sod 100 Mg Capsule PO 06/13/25 08:59 100 mg QDAY BRISA Administration Protocol Hydromorphone HCl 1.5 mg 05/14/25 10:37 05/16/25 01:00 Hydromorphone Inj 2 Mg/Ml Vial IVP 05/19/25 10:36 1.5 mg Q4HR PRN Administration Pain 7-10 Protocol Alteplase, Recombinant 4 mg/ 80 mls @ 14 mls/hr 05/14/25 16:00 05/16/25 02:16 Sodium Chloride/ Sterile Water IV 05/17/25 15:59 0.7 mg/hr .Q5H43M BRISA 14 mls/hr 0.7 MG/HR Administration Morphine Sulfate 2 mg 05/14/25 01:53 05/15/25 18:32 Morphine Sulf Inj 4 Mg/Ml Vial IVP 05/19/25 01:52 2 mg Q4HR PRN Administration Pain 7-10 Nicotine 21 mg 05/14/25 08:10 05/15/25 08:50 Nicotine Patch 21 Mg/24 Hr Patch.Td24 TOP 06/13/25 08:09 21 mg QDAY BRISA Administration Ondansetron HCl 4 mg 05/13/25 22:07 05/16/25 01:00 Ondansetron Inj 2 Mg/Ml Inj 2 Ml IVP 06/12/25 22:06 4 mg Q6H PRN Administration NAUSEA OR VOMITING Protocol Pantoprazole Sodium 40 mg 05/14/25 09:00 05/15/25 08:50 Pantoprazole Inj 40 Mg Vial IVP 06/13/25 08:59 40 mg QDAY BRISA Administration Zolpidem Tartrate 5 mg 05/13/25 22:12 05/15/25 20:37 Zolpidem 5 Mg Tablet PO 06/12/25 22:11 5 mg HS PRN Administration INSOMNIA Plan 59 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 Wells Score 4.5. undergoing cathflow for catheter directed thrombolysis. 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 Patient does not attest to any bruising or trauma to leg. Wells Score 4.5 (+clinical signs of DVT +3, previous DVT +1.5). Prior history of DVT from post state. Currently 4 days of leg swelling up to groin, Homans+, no numbness or paresthesias, just pain and swelling, still able to move toes with full range of motion of legs and ankle. Venous doppler US extensive occlusive deep vein thrombus, involving left common femoral, left superficial femoral, popliteal, peroneal veins as well as superficial greater saphenous vein. Labs coags are within normal limits. Started on heparin drip and ordered IR thrombolysis due to extensive proximal occlusions. Not concerned for DVT as patient has no chest pain or SOB, or increased work of breathing, ordered EKG to help support this. 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 -Cath flow drip, and L foot IV placed by nurse #Tobacco Use disorder #COPD, not on home o2 #3cm RUL pulmonary nodule #Suspected PAD #Asthma On Brezti (budesonide/glycopyrrolate/formoterol fumerate) 2 puffs in AM and PM, albuterol rescue inhaler. pt smokes about .75 of a pack /day for the past several years, Pack years ~[address] chest angio with 3cm nodule, Plan: -Duonebs 3ml INH Q6HRRT brisa -O2 nasal cannula PRN -Nicotine patch 21 qday -consider outpatient RAMA given claudications symptoms -smoking cessation education if interested to be provided upon discharge -recommend outpatient low dose CT in 6 months for monitoring pulmonary nodule. CAD CT angio gest with extensive calcifications of the LAD Plan: - outpatient cardiology work up given stable anginal symptoms HLD elevated triglycerides and low HDL Plan - Atorvastatin 40 mg PO QHS #Hx of Insomnia Zolpidem at home Plan: -Zolpidem 5 mg PO HS PRN #Electrolyte abnormalities #Hypophosphatemia Plan: - Replete as needed Health Maintenance: Code status: Full DVT prophylaxis: Cathflow for L catheter directed thrombolysis GI prophylaxis: Protonix Diet: regular Martinez: purewick Lines: PIV Supplemental O2: NC PRN Disposition: Tele for DVT heparin drip, L foot PIV for catheter directed Thrombolysis Plan discussed with my attending Dr. Patel and my senior Dr. Milind Carter MD PGY1
[2025-05-16] MEDS: NICOTINE PATCH 21 MG/24 HR PATCH.TD24 TOP (08:00)
[2025-05-16] MEDS: DOCUSATE SOD 100 MG CAPSULE PO (08:00)
[2025-05-16] MEDS: NAPH,KPH MBDB 1 PACKET (1.5 GM) PO (09:38)
--- NOTE | 2025-05-16 10:00 | XR_ITS ---
EXAMINATION: US venous doppler LE LT HISTORY: CATHFLO INFUSION FOR DVT COMPARISON: 05/15/2025, lower extremity venous ultrasound. FINDINGS: Morin scale, color doppler, and spectral waveforms of the left lower extremity veins. Again seen is echogenic material involving the deep veins of the left lower extremity extending from the common femoral through the calf veins. This precludes compression. There is minimal color and spectral Doppler signal seen within the mid, distal femoral veins and popliteal vein. There is mild improvement in compression of the mid femoral vein. Greater saphenous vein also demonstrates extensive clot. IMPRESSION: Similar to minimally improved (mid femoral vein) extensive clot burden in the deep veins and greater saphenous vein of the left lower extremity.
[2025-05-16] MEDS: ALBUTEROL/IPRATROPIUM (Duoneb) RT SOL 3 ML NEBU INH ×2 (13:35→18:56)
--- NOTE | 2025-05-16 16:44 | PC.SS ---
Discharge round: Repeat ultrasounds daily?pending medical clearance?d/c home.
[2025-05-16] MEDS: ATORVASTATIN CALCIUM 20 MG TABLET 40 MG PO (20:55)
[2025-05-17] VITALS (16 sets, daily range): BP systolic 126–137; BP diastolic 77–98; PULSE 71–88; RESP 14–96; TEMP 36.1–36.6; O2SAT 90–100; BMI 38.6
[2025-05-17] MEDS: HYDROmorphone INJ 2 MG/ML VIAL 1.5 MG IVP ×5 (01:29→20:38)
[2025-05-17] MEDS: CATHFLO (ALTEPLASE) INJ 4 MG in SODIUM CHLORIDE 0.9% 76 ML, Sterile Water 4 ML 14 MG IV ×5 (03:17→23:59)
[2025-05-17 05:45] LABS: Basophils # (Auto) 0.0 Thou/mm3 (0.0-0.2); Basophils % (Auto) 0 % (0-2.5); Eosinophils # (Auto) 0.1 Thou/mm3 (0.0-0.5); Eosinophils % (Auto) 1 % (0-10); Hematocrit 37.6 % (36.0-46.0); Hemoglobin 12.3 g/dL (12.0-16.0); Immature Granulocytes Auto 0.06 Thou/mm3 (0.00-0.00); Lymphocytes # (Auto) 1.7 Thou/mm3 (1.0-4.8); Lymphocytes % (Auto) 21 % (10-50); Mean Corpuscular HGB Conc 32.7 g/dl (31.0-37.0); Mean Corpuscular Hemoglobin 31.9 pg (25.0-35.0); Mean Corpuscular Volume 97 fL (80-100); Monocytes # (Auto) 1.0 Thou/mm3 (0.0-0.8); Monocytes % (Auto) 12 % (0-12); Neutrophils # (Auto) 5.6 Thou/mm3 (1.8-7.7); Neutrophils % (Auto) 66 % (37-80); Nucleated Red Blood Cell # 0.00 Thou/mm3 (0.00-0.00); Nucleated Red Blood Cell % 0 /100 WBC (0); Platelet Count 250 Thou/mm3 (140-440); RDW Standard Deviation 49.0 fL (36.4-46.3); Red Blood Count 3.86 Miln/mm3 (4.00-5.20); White Blood Count 8.4 Thou/mm3 (3.6-11.0)
[2025-05-17] MEDS: ALBUTEROL/IPRATROPIUM (Duoneb) RT SOL 3 ML NEBU INH ×3 (06:29→19:52)
[2025-05-17 06:39] LABS: Alanine Aminotransferase < 7 U/L (10-49); Albumin, Serum 4.1 gm/dL (3.5-5.0); Albumin/Globulin Ratio 1.7 (1.2-2.2); Alkaline Phosphatase 37 U/L (46-116); Anion Gap 7 (7-16); Aspartate Amino Transferase 16 U/L (0-34); BUN/Creatinine Ratio 13 Ratio (12-20); Bilirubin,Total < 0.2 mg/dL (0.3-1.2); Blood Urea Nitrogen 8 mg/dL (9-23); Calcium 8.5 mg/dL (8.3-10.6); Calcium (Corrected) 8.5 mg/dL (8.5-10.1); Carbon Dioxide 27.7 mMol/L (20.0-31.0); Chloride 103 mMol/L (98-107); Creatinine (Component) 0.6 mg/dL (0.6-1.3); Estimated Creatinine Clearance 120.6 mL/min (>60); Globulin 2.4 gm/dL (2.3-3.5); Glucose 97 mg/dL (74-106); Magnesium 1.9 mg/dL (1.6-2.6); Osmolality,Calculated 273 (275-295); Phosphorous 1.7 mg/dL (2.4-5.1); Potassium 4.3 mMol/L (3.4-5.1); Sodium 138 mMol/L (136-145); Total Protein 6.5 gm/dL (5.7-8.2); eGFR > 60 See Note
--- NOTE | 2025-05-17 08:00 | ESPR_ITS ---
<Statement entered by Michelle Patel MD - 05/25/25 08:40> I reviewed above note and agree with findings and plans. I have also personally examined the patient with medicine team and went over assessment and plan with medical team including chemist internship and resident physician. <Statement entered by Dean Vaz MD - 05/17/25 15:04> Pt is seen at bedside, Left LE edema persist, pt continues to be in pain. US of L LE shows extensive DVT with minimal improvement. Will continue direct catheter thrombolysis and repeat daily US. Patient was seen and examined by me personally. I have directly supervised and reviewed documentation by the team resident and agree with its findings. ------- Plan of care was discussed with the attending, Dr. Amanda Vaz, PGY-2 Documentation for date of: 05/17/25 Subjective Subjective Interval history: NAEO. VSS. Patient continues to report similar midline LLE pain. Denies shortness of breath, orthopnea. Denies new symptoms at this time. Exam Vital Signs Temp Pulse Resp BP Pulse Ox O2 Del Method O2 Flow Rate 96.9 F 86 20 137/89 H 99 Room Air 1 05/17/25 04:00 05/17/25 06:30 05/17/25 06:30 05/17/25 04:00 05/17/25 06:30 05/17/25 04:00 05/17/25 00:00 FiO2 0.5 05/16/25 18:58 Narrative Exam General: No acute distress, well nourished Eye: PERRL, EOMI, normal conjunctiva, no scleral icterus HENT: Normocephalic, atraumatic, normal hearing, moist oral mucosa Neck: Supple, non-tender, no JVD, no lymphadenopathy Lungs: Left upper lung wheezing (improved from previous exam) Heart: Normal S1 and S2, no S3 or S4 appreciated. Normal rate and regular rhythm, no murmurs, rubs gallops, or edema. Peripheral pulses intact bilaterally, capillary refill brisk distally Abdomen: Soft, non-tender, non-distended, normal bowel sounds. No guarding or rebound tenderness. Musculoskeletal: L extremity swelling, and warmth from ankle to groin, enlarged circumference, TTP, without erythema, no numbness, toes and feet have full range of motion. pulses palpable 1+ bilaterally Skin: Skin is warm, dry, no rashes or lesions. No LLE skin changes Neurologic: Alert, awake and oriented x3. CN II-XII grossly intact. No focal neuro deficits. No signs of meningeal irritation noted. Psychiatric: Cooperative, appropriate mood and affect Objective Labs 05/17/25 05:07 05/17/25 05:07 Labs: Laboratory Results - last 24 hr 05/17/25 05:07 WBC 8.4 RBC 3.86 L Hgb 12.3 Hct 37.6 MCV 97 MCH 31.9 MCHC 32.7 RDW Std Deviation 49.0 H Plt Count 250 Neut % (Auto) 66 Lymph % (Auto) 21 [place] % (Auto) 12 Eos % (Auto) 1 Baso % (Auto) 0 Neut # (Auto) 5.6 Lymph # (Auto) 1.7 [place] # (Auto) 1.0 H Eos # (Auto) 0.1 Baso # (Auto) 0.0 Immature Gran # (Auto) 0.06 H Absolute Nucleated RBC 0.00 Immature Gran % 1 H Nucleated RBC % 0 Sodium 138 Potassium 4.3 Chloride 103 Carbon Dioxide 27.7 Anion Gap 7 BUN 8 L Creatinine 0.6 Estim Creat Clear Calc 120.6 eGFR > 60 BUN/Creatinine Ratio 13 Glucose 97 Calculated Osmolality 273 L Calcium 8.5 Corrected Calcium 8.5 Phosphorus 1.7 L Magnesium 1.9 Total Bilirubin < 0.2 L AST 16 ALT < 7 L Alkaline Phosphatase 37 L Total Protein 6.5 Albumin 4.1 Globulin 2.4 Albumin/Globulin Ratio 1.7 Quality Measures Quality Measures VTE prophylaxis Assessment & Plan Assessment Current Active Medications: Generic Name Dose Route Start Last Admin Trade Name Codi PRN Reason Stop Dose Admin Acetaminophen 650 mg 05/13/25 22:07 05/14/25 06:23 Acetaminophen 325 Mg Tablet PO 06/12/25 22:06 650 mg Q6H PRN Administration Fever >100.4 or pain 1-3 Hydrocodone Bitart/Acetaminophen 1 tab 05/14/25 01:53 05/16/25 05:41 Hydrocodone/Apap 5/325 Tablet PO 05/19/25 01:52 1 tab Q4HR PRN Administration pain 4-6 Albuterol/Ipratropium 3 ml 05/16/25 13:00 05/17/25 06:29 Albuterol/Ipratropium (Duoneb) Rt Rabia 3 Ml Nebu INH 06/15/25 12:59 3 ml Q6HRRT BRISA Administration Atorvastatin Calcium 40 mg 05/16/25 21:00 05/16/25 20:55 Atorvastatin Calcium 20 Mg Tablet PO 06/15/25 20:59 40 mg HS BRISA Administration Docusate Sodium 100 mg 05/14/25 09:00 05/16/25 08:00 Docusate Sod 100 Mg Capsule PO 06/13/25 08:59 100 mg QDAY BRISA Administration Protocol Hydromorphone HCl 1.5 mg 05/14/25 10:37 05/17/25 05:46 Hydromorphone Inj 2 Mg/Ml Vial IVP 05/19/25 10:36 1.5 mg Q4HR PRN Administration Pain 7-10 Protocol Alteplase, Recombinant 4 mg/ 80 mls @ 14 mls/hr 05/14/25 16:00 05/17/25 03:17 Sodium Chloride/ Sterile Water IV 05/17/25 15:59 0.7 mg/hr .Q5H43M BRISA 14 mls/hr 0.7 MG/HR Administration Magnesium Sulfate 4 gm in 50 mls @ 12.5 mls/hr 05/17/25 07:58 Magnesium Sulfate Ivpb IV 05/17/25 11:57 X1 ONE Morphine Sulfate 2 mg 05/14/25 01:53 05/15/25 18:32 Morphine Sulf Inj 4 Mg/Ml Vial IVP 05/19/25 01:52 2 mg Q4HR PRN Administration Pain 7-10 Nicotine 21 mg 05/14/25 08:10 05/16/25 08:00 Nicotine Patch 21 Mg/24 Hr Patch.Td24 TOP 06/13/25 08:09 21 mg QDAY BRISA Administration Ondansetron HCl 4 mg 05/13/25 22:07 05/16/25 01:00 Ondansetron Inj 2 Mg/Ml Inj 2 Ml IVP 06/12/25 22:06 4 mg Q6H PRN Administration NAUSEA OR VOMITING Protocol Pantoprazole Sodium 40 mg 05/14/25 09:00 05/16/25 08:00 Pantoprazole Inj 40 Mg Vial IVP 06/13/25 08:59 40 mg QDAY BRISA Administration Potassium Phos/Sodium Phos 1 packet 05/17/25 07:58 [place],[facility] Mbdb 1 Packet (1.5 Gm) PO 05/17/25 07:59 X1 ONE Zolpidem Tartrate 5 mg 05/13/25 22:12 05/15/25 20:37 Zolpidem 5 Mg Tablet PO 06/12/25 22:11 5 mg HS PRN Administration INSOMNIA Plan 59 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 Wells Score 4.5. undergoing cathflow for catheter directed thrombolysis. 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 Patient does not attest to any bruising or trauma to leg. Wells Score 4.5 (+clinical signs of DVT +3, previous DVT +1.5). Prior history of DVT from post state. Currently 4 days of leg swelling up to groin, Homans+, no numbness or paresthesias, just pain and swelling, still able to move toes with full range of motion of legs and ankle. Venous doppler US extensive occlusive deep vein thrombus, involving left common femoral, left superficial femoral, popliteal, peroneal veins as well as superficial greater saphenous vein. Labs coags are within normal limits. Started on heparin drip and ordered IR thrombolysis due to extensive proximal occlusions. Not concerned for DVT as patient has no chest pain or SOB, or increased work of breathing, ordered EKG to help support this. Dx -CT chest angio with no PE -FUP coag : elevated PTT (ongoing heparin drip) -FUP EKG: nl sinus with pvcs -FUP TSH: wnl -FUP lipid panel: Elevated triglycerides and low HDL -Serial DVT US: - 05/15 with no significant improvement in DVT - 05/16: Similar to minimally improved (mid femoral vein) extensive clot burden in the deep veins and greater saphenous vein of LLE Pain mgmt: - APAP 650 for mild pain - [place] 5 mg PO q4h PRN - Morphine 2mg IV q4h PRN - Dilaudid 1.5 q4h PRN Plan: - Heparin drip 05/13 - transitioned to Cath flow -Cath flow drip, and L foot IV placed by nurse - Consider eliquis on discharge 10 mg BID for & days and then 5 mg bid for 3 months, 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 #Tobacco Use disorder #COPD, not on home o2 #3cm RUL pulmonary nodule #Suspected PAD #Asthma On Brezti (budesonide/glycopyrrolate/formoterol fumerate) 2 puffs in AM and PM, albuterol rescue inhaler. pt smokes about .75 of a pack /day for the past several years, Pack years ~[address] chest angio with 3cm nodule Plan: -Duonebs 3ml INH Q6HRRT brisa -O2 nasal cannula PRN -Nicotine patch 21 qday -consider outpatient RAMA given claudications symptoms -smoking cessation education if interested to be provided upon discharge -recommend outpatient low dose CT in 6 months for monitoring pulmonary nodule. CAD CT angio gest with extensive calcifications of the LAD Plan: - outpatient cardiology work up given stable anginal symptoms HLD elevated triglycerides and low HDL Plan - Atorvastatin 40 mg PO QHS #Hx of Insomnia Zolpidem at home Plan: -Zolpidem 5 mg PO HS PRN #Electrolyte abnormalities #Hypophosphatemia Plan: - Replete as needed Checklist Code status: Full DVT prophylaxis: Cathflow for L catheter directed thrombolysis GI prophylaxis: Protonix Diet: regular Martinez: purewick Lines: PIV Supplemental O2: NC PRN Disposition: Tele for DVT heparin drip, L foot PIV for catheter directed Thrombolysis Plan discussed with my attending Dr. Patel and my senior Dr. Milind Carter MD PGY1
[2025-05-17] MEDS: NAPH,KPH MBDB 1 PACKET (1.5 GM) PO (09:08)
[2025-05-17] MEDS: DOCUSATE SOD 100 MG CAPSULE PO (09:09)
[2025-05-17] MEDS: NICOTINE PATCH 21 MG/24 HR PATCH.TD24 TOP (09:10)
[2025-05-17] MEDS: Magnesium Sulfate 4 GM Ivpb 4 GM/50 ML BAG IV (09:11)
--- NOTE | 2025-05-17 10:00 | XR_ITS ---
EXAMINATION: US venous doppler LE LT HISTORY: CATHFLO INFUSION FOR DVT COMPARISON: 05/15/2025, 05/16/2025 lower extremity venous ultrasound. FINDINGS: Morin scale, color doppler, and spectral waveforms of the left lower extremity veins. Again seen is echogenic material involving the deep veins of the left lower extremity extending from the common femoral through the calf veins. This precludes complete compression. No color Doppler signal is seen in the common femoral vein. There is minimal color and spectral Doppler signal seen within the mid, distal femoral veins and popliteal vein. Greater saphenous vein also demonstrates extensive clot. Subcutaneous edema in the lower leg. IMPRESSION: 1. Similar extensive clot burden in the deep veins and greater saphenous vein of the left lower extremity. 2. Subcutaneous edema in the lower leg.
[2025-05-17] MEDS: POLYETHYLENE GLYCOL 17 GM PACKET PO (14:04)
[2025-05-17] MEDS: HYDROmorphone INJ 2 MG/ML VIAL 1 MG IVP (16:57)
[2025-05-17] MEDS: ATORVASTATIN CALCIUM 20 MG TABLET 40 MG PO (20:41)
[2025-05-18] VITALS (19 sets, daily range): BP systolic 93–141; BP diastolic 67–92; PULSE 67–91; RESP 12–27; TEMP 36.1–36.4; O2SAT 92–100
[2025-05-18] MEDS: HYDROmorphone INJ 2 MG/ML VIAL 1.5 MG IVP ×2 (00:51→04:51)
[2025-05-18] MEDS: ALBUTEROL/IPRATROPIUM (Duoneb) RT SOL 3 ML NEBU INH ×4 (01:11→19:21)
[2025-05-18] MEDS: CATHFLO (ALTEPLASE) INJ 4 MG in SODIUM CHLORIDE 0.9% 76 ML, Sterile Water 4 ML 14 MG IV ×2 (04:49→17:53)
[2025-05-18 05:34] LABS: Basophils # (Auto) 0.0 Thou/mm3 (0.0-0.2); Basophils % (Auto) 0 % (0-2.5); Eosinophils # (Auto) 0.1 Thou/mm3 (0.0-0.5); Eosinophils % (Auto) 1 % (0-10); Hematocrit 36.0 % (36.0-46.0); Hemoglobin 11.7 g/dL (12.0-16.0); Immature Granulocytes Auto 0.10 Thou/mm3 (0.00-0.00); Lymphocytes # (Auto) 1.8 Thou/mm3 (1.0-4.8); Lymphocytes % (Auto) 19 % (10-50); Mean Corpuscular HGB Conc 32.5 g/dl (31.0-37.0); Mean Corpuscular Hemoglobin 31.4 pg (25.0-35.0); Mean Corpuscular Volume 97 fL (80-100); Monocytes # (Auto) 1.0 Thou/mm3 (0.0-0.8); Monocytes % (Auto) 11 % (0-12); Neutrophils # (Auto) 6.2 Thou/mm3 (1.8-7.7); Neutrophils % (Auto) 68 % (37-80); Nucleated Red Blood Cell # 0.00 Thou/mm3 (0.00-0.00); Nucleated Red Blood Cell % 0 /100 WBC (0); Platelet Count 232 Thou/mm3 (140-440); RDW Standard Deviation 48.1 fL (36.4-46.3); Red Blood Count 3.73 Miln/mm3 (4.00-5.20); White Blood Count 9.2 Thou/mm3 (3.6-11.0)
[2025-05-18 06:29] LABS: Alanine Aminotransferase 9 U/L (10-49); Albumin, Serum 4.0 gm/dL (3.5-5.0); Albumin/Globulin Ratio 1.8 (1.2-2.2); Anion Gap 7 (7-16); Aspartate Amino Transferase 25 U/L (0-34); BUN/Creatinine Ratio 12 Ratio (12-20); Bilirubin,Total < 0.2 mg/dL (0.3-1.2); Blood Urea Nitrogen 7 mg/dL (9-23); Calcium 8.7 mg/dL (8.3-10.6); Calcium (Corrected) 8.7 mg/dL (8.5-10.1); Carbon Dioxide 24.1 mMol/L (20.0-31.0); Chloride 103 mMol/L (98-107); Creatinine (Component) 0.6 mg/dL (0.6-1.3); Estimated Creatinine Clearance 121.5 mL/min (>60); Globulin 2.2 gm/dL (2.3-3.5); Glucose 93 mg/dL (74-106); Magnesium 1.9 mg/dL (1.6-2.6); Osmolality,Calculated 266 (275-295); Phosphorous 2.4 mg/dL (2.4-5.1); Potassium 4.7 mMol/L (3.4-5.1); Sodium 134 mMol/L (136-145); Total Protein 6.2 gm/dL (5.7-8.2); eGFR > 60 See Note
[2025-05-18 06:54] LABS: Alkaline Phosphatase 38 U/L (46-116)
--- NOTE | 2025-05-18 08:00 | PD.RESPRO ---
Documentation for date of: 05/18/25 Exam Vital Signs Temp Pulse Resp BP Pulse Ox O2 Del Method O2 Flow Rate 97.5 F 75 18 93/67 100 Room Air 1 05/18/25 04:00 05/18/25 07:31 05/18/25 07:06 05/18/25 04:00 05/18/25 07:06 05/18/25 04:00 05/18/25 07:06 FiO2 0.5 05/17/25 09:00 Narrative Exam General: No acute distress, well nourished Eye: PERRL, EOMI, normal conjunctiva, no scleral icterus HENT: Normocephalic, atraumatic, normal hearing, moist oral mucosa Neck: Supple, non-tender, no JVD, no lymphadenopathy Lungs: Left upper lung wheezing (improved from previous exam) Heart: Normal S1 and S2, no S3 or S4 appreciated. Normal rate and regular rhythm, no murmurs, rubs gallops, or edema. Peripheral pulses intact bilaterally, capillary refill brisk distally Abdomen: Soft, non-tender, non-distended, normal bowel sounds. No guarding or rebound tenderness. Musculoskeletal: L extremity swelling, and warmth from ankle to groin, enlarged circumference, TTP, without erythema, no numbness, toes and feet have full range of motion. pulses palpable 1+ bilaterally Skin: Skin is warm, dry, no rashes or lesions. No LLE skin changes Neurologic: Alert, awake and oriented x3. CN II-XII grossly intact. No focal neuro deficits. No signs of meningeal irritation noted. Psychiatric: Cooperative, appropriate mood and affect Objective Labs 05/18/25 04:38 05/18/25 04:38 Labs: Laboratory Results - last 24 hr 05/18/25 04:38 WBC 9.2 RBC 3.73 L Hgb 11.7 L Hct 36.0 MCV 97 MCH 31.4 MCHC 32.5 RDW Std Deviation 48.1 H Plt Count 232 Neut % (Auto) 68 Lymph % (Auto) 19 [place] % (Auto) 11 Eos % (Auto) 1 Baso % (Auto) 0 Neut # (Auto) 6.2 Lymph # (Auto) 1.8 [place] # (Auto) 1.0 H Eos # (Auto) 0.1 Baso # (Auto) 0.0 Immature Gran # (Auto) 0.10 H Absolute Nucleated RBC 0.00 Immature Gran % 1 H Nucleated RBC % 0 Sodium 134 L Potassium 4.7 Chloride 103 Carbon Dioxide 24.1 Anion Gap 7 BUN 7 L Creatinine 0.6 Estim Creat Clear Calc 121.5 eGFR > 60 BUN/Creatinine Ratio 12 Glucose 93 Calculated Osmolality 266 L Calcium 8.7 Corrected Calcium 8.7 Phosphorus 2.4 Magnesium 1.9 Total Bilirubin < 0.2 L AST 25 ALT 9 L Alkaline Phosphatase 38 L Total Protein 6.2 Albumin 4.0 Globulin 2.2 L Albumin/Globulin Ratio 1.8 Quality Measures Quality Measures VTE prophylaxis Assessment & Plan Assessment Current Active Medications: Generic Name Dose Route Start Last Admin Trade Name Freq PRN Reason Stop Dose Admin Acetaminophen 650 mg 05/13/25 22:07 05/14/25 06:23 Acetaminophen 325 Mg Tablet PO 06/12/25 22:06 650 mg Q6H PRN Administration Fever >100.4 or pain 1-3 Hydrocodone Bitart/Acetaminophen 1 tab 05/14/25 01:53 05/16/25 05:41 Hydrocodone/Apap 5/325 Tablet PO 05/19/25 01:52 1 tab Q4HR PRN Administration pain 4-6 Albuterol/Ipratropium 3 ml 05/16/25 13:00 05/18/25 07:05 Albuterol/Ipratropium (Duoneb) Rt Rabia 3 Ml Nebu INH 06/15/25 12:59 3 ml Q6HRRT BRISA Administration Atorvastatin Calcium 40 mg 05/16/25 21:00 05/17/25 20:41 Atorvastatin Calcium 20 Mg Tablet PO 06/15/25 20:59 40 mg HS BRISA Administration Docusate Sodium 100 mg 05/14/25 09:00 05/17/25 09:09 Docusate Sod 100 Mg Capsule PO 06/13/25 08:59 100 mg QDAY BRISA Administration Protocol Alteplase, Recombinant 4 mg/ 80 mls @ 14 mls/hr 05/14/25 16:00 05/18/25 04:49 Sodium Chloride/ Sterile Water IV 05/20/25 15:59 0.7 mg/hr .Q5H43M BRISA 14 mls/hr 0.7 MG/HR Administration Morphine Sulfate 2 mg 05/14/25 01:53 05/15/25 18:32 Morphine Sulf Inj 4 Mg/Ml Vial IVP 05/19/25 01:52 2 mg Q4HR PRN Administration Pain 7-10 Nicotine 21 mg 05/14/25 08:10 05/17/25 09:10 Nicotine Patch 21 Mg/24 Hr Patch.Td24 TOP 06/13/25 08:09 21 mg QDAY BRISA Administration Ondansetron HCl 4 mg 05/13/25 22:07 05/16/25 01:00 Ondansetron Inj 2 Mg/Ml Inj 2 Ml IVP 06/12/25 22:06 4 mg Q6H PRN Administration NAUSEA OR VOMITING Protocol Pantoprazole Sodium 40 mg 05/14/25 09:00 05/17/25 09:09 Pantoprazole Inj 40 Mg Vial IVP 06/13/25 08:59 40 mg QDAY BRISA Administration Polyethylene Glycol 17 gm 05/17/25 13:15 05/17/25 14:04 Polyethylene Glycol 17 Gm Packet PO 06/16/25 13:14 17 gm QDAY BRISA Administration Zolpidem Tartrate 5 mg 05/13/25 22:12 05/15/25 20:37 Zolpidem 5 Mg Tablet PO 06/12/25 22:11 5 mg HS PRN Administration INSOMNIA Plan 59 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 Wells Score 4.5. undergoing cathflow for catheter directed thrombolysis. 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 Patient does not attest to any bruising or trauma to leg. Wells Score 4.5 (+clinical signs of DVT +3, previous DVT +1.5). Prior history of DVT from post state. Currently 4 days of leg swelling up to groin, Homans+, no numbness or paresthesias, just pain and swelling, still able to move toes with full range of motion of legs and ankle. Venous doppler US extensive occlusive deep vein thrombus, involving left common femoral, left superficial femoral, popliteal, peroneal veins as well as superficial greater saphenous vein. Labs coags are within normal limits. Started on heparin drip and ordered IR thrombolysis due to extensive proximal occlusions. Not concerned for DVT as patient has no chest pain or SOB, or increased work of breathing, ordered EKG to help support this. Dx -CT chest angio with no PE -[facility] coag : elevated PTT (ongoing heparin drip) -[facility] EKG: nl sinus with pvcs -[facility] TSH: wnl -[facility] lipid panel: Elevated triglycerides and low HDL -Serial DVT US: - 05/15 with no significant improvement in DVT - 05/16: Similar to minimally improved (mid femoral vein) extensive clot burden in the deep veins and greater saphenous vein of LLE - 05/17: Similar extensive clot burden in the deep veins and greater saphenous vein of the LLE; subcutaneous edema in L lower leg Pain mgmt: - APAP 650 for mild pain - Holder 5 mg PO q4h PRN - Morphine 2mg IV q4h PRN - Dilaudid 1.5 q4h PRN Plan: - Heparin drip 05/13 - transitioned to Cath flow -Cath flow drip, and L foot IV placed by nurse - Consider eliquis on discharge 10 mg BID for & days and then 5 mg bid for 3 months, consider extended dvt ppx 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 #Tobacco Use disorder #COPD, not on home o2 #3cm RUL pulmonary nodule #Suspected PAD #Asthma On Brezti (budesonide/glycopyrrolate/formoterol fumerate) 2 puffs in AM and PM, albuterol rescue inhaler. pt smokes about .75 of a pack /day for the past several years, Pack years ~[address] chest angio with 3cm nodule Plan: -Duonebs 3ml INH Q6HRRT brisa -O2 nasal cannula PRN -Nicotine patch 21 qday -consider outpatient RAMA given claudications symptoms -smoking cessation education if interested to be provided upon discharge -recommend outpatient low dose CT in 6 months for monitoring pulmonary nodule. CAD CT angio gest with extensive calcifications of the LAD Plan: - outpatient cardiology work up given stable anginal symptoms HLD elevated triglycerides and low HDL Plan - Atorvastatin 40 mg PO QHS #Hx of Insomnia Zolpidem at home Plan: -Zolpidem 5 mg PO HS PRN #Electrolyte abnormalities #Hypophosphatemia Plan: - Replete as needed Checklist Code status: Full DVT prophylaxis: Cathflow for L catheter directed thrombolysis GI prophylaxis: Protonix Diet: regular Martinez: purewick Lines: PIV Supplemental O2: NC PRN Disposition: Tele for DVT heparin drip, L foot PIV for catheter directed Thrombolysis Plan discussed with my attending Dr. Patel and my senior Dr. Milind Carter MD PGY1
--- NOTE | 2025-05-18 08:01 | XR_ITS ---
Examination: Duplex scan of the lower extremity, unilateral left Date and time of exam: May 18, 2025, 1525 hours, comparison May 17, 2025 INDICATIONS: Left leg swelling and pain this week, undergoing anticoagulation for extensive DVT Technique: Duplex scan of the extremity veins using B-mode/grayscale imaging and Doppler spectral analysis and color flow Attention is directed to internal echogenicity, compression and augmentation involving these veins, color flow assessment, spectral analysis Findings: Major deep venous structures in the extremity demonstrate normal course and caliber. Extensive thrombus in the left common femoral left superficial femoral veins Improvement however, with thrombus no longer identified in the left popliteal vein and left peroneal and left posterior tibial veins compared to the May 15, 2025 study IMPRESSION: Improvement in extent of deep vein thrombus compared to the May 15, 2025 study
--- NOTE | 2025-05-18 08:02 | ESDS_ITS ---
Planned Discharge Date 05/18/25 DS: Providers Provider Date of admission: 05/13/25 22:07 Primary care physician: Beckie Robertson NP Admitting Provider: Xu Barnhart MD Attending Provider on Admission: Xu Barnhart MD Attending Provider on DC: Dr. Ness Discharging Provider: Aura Carter MD DS: Diagnosis Problem List Completed Was Problem List Reviewed/Reconciled?: Yes Hospital Course Hospital Course Hospital course: Hospital Course Ms. Cardoza is a 59 y/o female with PMH prior DVT (1986 after of child), COPD (not on home O2), tobacco use disorder, asthma, and insomnia who presents to ED on 05/13 from PCP with 4 days of left lower extremity swelling and tenderness, found to have extensive proximal DVT on US. In the ED patient was tachycardic but otherwise hemodynamically stable. Physical exam significant for Homans sign, exquisite tenderness to palpation of the medial aspect of left upper and lower leg, swelling of the left upper and lower leg compared to right leg, left leg warmth compared to right. Patient denies numbness, paresthesias, and has full ROM of leg foot though limited 2/2 pain. Patient also denies shortness of breath, increased work of breathing, or orthopnea and has mainta ined appropriate spO2 on room air. These findings were consistent throughout hospitalization. Wells Score 4.5 (+clinical signs of DVT +3, previous DVT +1.5). 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 Venous Doppler US showed extensive occlusive deep vein thrombus, involving left common femoral, left superficial femoral, popliteal, peroneal veins as well as superficial greater saphenous vein. CTA chest showed no pulmonary embolus. Patient was loaded with IV heparin and started on heparin drip (05/13-05/14). Cath flow (alteplase) was started on 05/14 for catheter-directed thrombolysis with serial LLE US to monitor clots. Serial US from 05/14-05/17 showed minimal to no improvement in extensive clot burden in deep veins and greater saphenous vein. Patient continues to have severe pain requiring IV dilaudid q6h. COPD and asthma were managed with scheduled Duonebs q6h administered by RT (on Brezti - budesonide/glycopyrrolate/formoterol fumerate - 2 puffs BID with albuterol rescue inhaler at home). CTA chest showed incidental findings of 3 cm right upper lobe pulmonary nodule as well as extenive calcifications of the LAD. Patient recommended to follow up outpatient for low dose CT in 6 months for monitoring in addition to outpatient cardiology workup for stable angina. Patient was also counseled on smoking cessation. Lipid panel showed elevated triglycerides and low HDL, started on atorvastatin 40 mg PO nightly. Zolpidem 5 mg PO QHS was continued as needed (home med) for insomnia. Given that patient's extensive LLE DVTs are not improving with catheter-directed thrombolysis or systemic administration of heparin, as evident of serial LLE ultrasounds, patient requires transfer for IR services for thrombectomy at this time. Patient was started on therapeutic dose of Lovenox (100 mg BID subQ) and Cath flow was discontinued on 05/18. Patient hemodynamically stable. Labs reviewed and stable. Patient stable for the transfer. Diagnoses #Provoked extensive proximal DVT #Tobacco Use disorder #COPD, not on home o2 #3cm RUL pulmonary nodule #Suspected PAD #Asthma #CAD #HLD #Hx of Insomnia #Electrolyte abnormalities Aura Carter MD PGY1 Time Spent with Patient Time attestation: Total time spent providing and/or coordinating discharge services: 40 minutes Time spent: Greater than 30 minutes Exam Vital Signs Temp Pulse Resp BP Pulse Ox O2 Del Method O2 Flow Rate 97.5 F 75 18 93/67 100 Room Air 1 05/18/25 04:00 05/18/25 07:31 05/18/25 07:06 05/18/25 04:00 05/18/25 07:06 05/18/25 04:00 05/18/25 07:06 FiO2 0.5 05/17/25 09:00 Narrative Exam General: Acutely distressed, obese Eye: PERRL, EOMI, normal conjunctiva, no scleral icterus HENT: Normocephalic, atraumatic, normal hearing, moist oral mucosa Neck: Supple, non-tender, no JVD, no lymphadenopathy Lungs: Clear to auscultation bilaterally, symmetric chest rise, no increased work of breathing, spO2 96% on RA. Heart: Normal S1 and S2, no S3 or S4 appreciated. Normal rate and regular rhythm, no murmurs, rubs gallops, or edema. Peripheral pulses intact bilaterally, capillary refill brisk distally Abdomen: Soft, non-tender, non-distended, normal bowel sounds. No guarding or rebound tenderness. Musculoskeletal: Left lower extremity swelling, and warmth from ankle to groin, enlarged circumference, exquisitely TTP of medial aspect, some erythema of medial thigh, no numbness, toes and feet have full range of motion though limited 2/2 pain. pulses palpable 1+ bilaterally Skin: Skin is warm, dry, no rashes or lesions. Neurologic: Alert, awake and oriented x3. CN II-XII grossly intact. No focal neuro deficits. No signs of meningeal irritation noted. Psychiatric: Cooperative, appropriate mood and affect Discharge Plan Plan Care Plan Goals: -consider outpatient RAMA given lower extremity claudications symptoms -We found a 3cm nodule in your Right lung, we recommend outpatient low dose CT in 6 months for monitoring pulmonary nodule. and subsequent annual low dose ct imaging -Follow up with PCP within 1 week of discharge, if you do not have a primary care physician you can come see us at the [facility] by calling [phone] -Continue rest of medications as previously prescribed -Return to the ED or call EMS if symptoms return and/or worsen Prescriptions/Referrals Prescriptions/Med Rec: No Action celecoxib 200 mg capsule 200 mg PO DAILY tizanidine 4 mg tablet 4 mg PO TID benzonatate 200 mg capsule 200 mg PO DAILY Patient Comments: TAKE 1 CAPSULE BY MOUTH THREE TIMES A DAY NEEDED FOR COUGH zolpidem 10 mg tablet 10 mg PO DAILY Patient Comments: TAKE 1 TABLET 1 TIME A DAY AT NIGHT albuterol sulfate 90 mcg/actuation HFA aerosol inhaler 1 puff INHALATION BID PRN (Reason: shortness of breath or wheezing) Patient Comments: INHALE 1 PUFFS BY MOUTH on 2 occasion as NEEDED SHORTNESS OF BREATH lisinopril 40 mg tablet 40 mg PO DAILY Patient Comments: TAKE 1 TABLET BY MOUTH ONE TIME A DAY Breztri Aerosphere 160-9-4.8 mcg/actuation HFA aerosol inhaler 2 inh INHALATION BID Patient Comments: INHALE 2 PUFFS BY MOUTH 2 TIMES A DAY estradiol 2 mg tablet 2 mg PO BID Patient Comments: TAKE 2 TABLETS BY MOUTH DAILY Referrals: Beckie Robertson NP [Primary Care Provider] Patient/Caregiver Discharge Instructions Print Language: Kuwaiti Quality Discharge Quality Measures VTE prophylaxis MD Attestestation MD Attestation I have seen and examined the patient. I was physically present for the felix portions of the services provided including history, physical exam, diagnosis, treatment plans and orders. I agree with assessment and plan of care as documented by residents. Even though this this note was carefully revised there may still be minor errors in [employer] due to voice recognition software. Martine Ness MD
[2025-05-18] MEDS: DOCUSATE SOD 100 MG CAPSULE PO (08:28)
[2025-05-18] MEDS: Magnesium Sulfate 4 GM Ivpb 4 GM/50 ML BAG IV (08:29)
[2025-05-18] MEDS: NICOTINE PATCH 21 MG/24 HR PATCH.TD24 TOP (08:29)
[2025-05-18] MEDS: POLYETHYLENE GLYCOL 17 GM PACKET PO (08:29)
[2025-05-18] MEDS: HYDROmorphone INJ 2 MG/ML VIAL 1 MG IVP ×4 (09:00→20:00)
--- NOTE | 2025-05-18 10:37 | PC.CC ---
Addendum entered by Tona Tapia RN 05/18/25 17:17: 1715: received call from Zahnna ellis/ [facility], informed her to cancel transfer request. 170: called [facility], spoke to Arthur to cancel transfer. Dorie called back to confirm. 1656: spoke to [facility] CN, informed him that transfer has been canceled. 1655: Spoke to Dr. Ness to confirmed transfer cancellation. he confirmed to cancel transfer. 165: canceled transport. 164: received call from Dr. Vaz stating to cancel transfer as Dr. Mary can do the thrombectomy. Addendum entered by Tona Tapia RN 05/18/25 16:00: 1600: transport set for 1800 leaf size picker. informed bedside nurse Haja. 1528: TBA faxed back. Received call from Dorie ellis/ [facility] with bed information. Pt going to [facility] BED 4106. Call report to Phyllis [phone]. Transfer Packet w/ 1 cd taken to floor. Spoke to Bedside nurse Haja, informed her to print 72 hr med list and I will set up transportation. Addendum entered by Tona Tapia RN 05/18/25 14:45: transfer packet w/ 1 CD created. Addendum entered by Tona Tapia RN 05/18/25 14:45: 1434: Received call back from Dorie with [facility] with Dr. London on the line. Peer to peer with Dr. Ness completed. Dr. London accepted patient to [facility]. Dorie will call back when bed is available. She will fax a transfer back agreement. Addendum entered by Tona Tapia RN 05/18/25 12:04: 1152: received call back from Veronica to obtain clinical update, she will present case and call back. Addendum entered by Tona Tapia RN 05/18/25 11:52: 1145: called [facility] back, spoke to Alice, informed her [employer] did not provide auth. I provided [employer] with who i spoke to which was Magaly España and contact of . She stated she will accepted that and send the case to a nurse to review. Addendum entered by Tona Tapia RN 05/18/25 11:34: called many numbers for [employer]. I looked in the chart for the patient's card and retrieved the phone number for the provider line. I spoke to Guillermo then was transferred to Magaly B. I informed her that [facility] is requesting a verbal or physical prior auth for transfer review. Magaly reached out to her steamtable attendant railroad for further direction. Per magaly, steamtable attendant railroad stated auth will need to be obtained by the facility one the patient is admitted. Addendum entered by Tona Tapia RN 05/18/25 11:18: 1044: called [facility], spoke to Rishabh, attempted to initiate transfer request. He stated he needs auth to proceed. 1040: called [facility], spoke to Dorie, transfer initiated, she stated she will review clinicals and call back. 1039: called [facility], spoke to Zhanna. She stated no bed availability a this time and has a wait list. She stated she has not declined and will review the clinicals and call back. Original Note: 1034: received call from Dr. Carter to request for transfer for IR for thrombectomy. Clinicals and images sent to [facility] and [facility]. Clinicals sent to [facility].
[2025-05-18] MEDS: ENOXAPARIN SOD INJ 100 MG/ML SYRINGE SC (11:06)
--- NOTE | 2025-05-18 15:58 | PC.SS ---
Follow up note: Patient is pending a transfer for higher level of care for thrombectomy.
--- NOTE | 2025-05-18 17:12 | ESCONSULT_ITS ---
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 Risks benefits alternatives explained agreed to have the procedure. Eval the patient with resident physician PGY 1 Dr. 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 Wells Score 4.5 (+clinical signs of DVT +3, previous DVT +1.5). Cardiology consulted for DVT. #Provoked extensive proximal DVT COPD -phlegmasia cerulea dolens Prior history of DVT from post state. Currently 5 days of leg swelling and pain. Venous doppler US- extensive occlusive deep vein thrombus, involving left common femoral, left superficial femoral, popliteal, peroneal veins as well as superficial greater saphenous vein. Labs coags within normal limits. -Serial DVT US: - 05/15- no significant improvement in DVT - 05/16: Similar to minimally improved (mid femoral vein) extensive clot burden in the deep veins and greater saphenous vein of LLE - 05/17- Similar to previous - 05/18- improved compared to 05/15 Plan: - Heparin 4000 units 1x - Heparin drip protocol - Due to extensive DVT not responding significantly to therapy, will perform mechanical thrombectomy tomorrow morning The patient was recommended to have mechanical thrombectomy computer-assisted vacuum thrombectomy with penumbra device tomorrow morning because of symptomatic severe swelling of the left lower extremity extensive thrombus involving popliteal vein and distal femoral vein as well as the common femoral vein #Tobacco Use disorder #COPD, not on home o2 #3cm RUL pulmonary nodule #Suspected PAD #Asthma #CAD #HLD #Hx of Insomnia #Electrolyte abnormalities #Hypophosphatemia Per primary team This case was discussed with my attending physician, Dr. Mary. Adalid Olmos, PGY1 cc:: cc: Jessika Mary MD Exam Vital Signs Temp Pulse Resp BP Pulse Ox O2 Del Method O2 Flow Rate 97.3 F 87 16 141/90 H 96 Room Air 1 05/18/25 16:00 05/18/25 16:00 05/18/25 16:00 05/18/25 16:00 05/18/25 16:00 05/18/25 16:00 05/18/25 08:00 FiO2 0.5 05/17/25 09:00 Narrative Exam General: A/O x3, some pain, well-nourished, well-developed Eyes: PERRL, EOMI. Anicteric, vision grossly intact. Ears: No ear pain, no ear discharge, Hearing grossly intact. Nose: No nasal discharge. Mouth/Throat: Moist mucous membranes, no redness, no lesions. Neck: Neck supple, non-tender, no cervical lymphadenopathy. Lungs: Clear LUIS ANTONIO to auscultation and percussion, No accessory muscle use. Cardio: Normal S1/S2, regular rhythm, no murmurs, no JVD or carotid bruits. Abdomen: Soft, non-tender, no palpable masses, peristalsis present, no guarding or rebound. Extremities: L leg is significantly enlarged compared to R leg, with significant tenderness Skin: No rashes, no lesions, warm to touch. Neuro: No focal neurological deficits. Psych: Cooperative, appropriate mood and effect. Results Labs 05/20/25 04:17 05/20/25 04:17 Labs: Short CBC 05/18/25 Range/Units 04:38 WBC 9.2 (3.6-11.0) Thou/mm3 Hgb 11.7 L (12.0-16.0) g/dL Hct 36.0 (36.0-46.0) % Plt Count 232 (140-440) Thou/mm3 BMP 05/18/25 04:38 Sodium 134 L Potassium 4.7 Chloride 103 Carbon Dioxide 24.1 BUN 7 L Creatinine 0.6 Glucose 93 Calcium 8.7 Liver Function 05/18/25 Range/Units 04:38 Total Bilirubin < 0.2 L (0.3-1.2) mg/dL AST 25 (0-34) U/L ALT 9 L (10-49) U/L Alkaline Phosphatase 38 L (46-116) U/L Albumin 4.0 (3.5-5.0) gm/dL Quality Measures Quality Measures VTE prophylaxis Medications Home Medications and Allergies Home Medications ?Medication ?Instructions ?Recorded ?Confirmed ?Type albuterol sulfate 90 mcg/actuation 1 puff inhalation B ID PRN 05/14/25 05/16/25 History aerosol inhaler shortness of breath or wheez ing benzonatate 200 mg capsule 200 mg PO DAILY 05/14/25 History budesonide 160 mcg-glycopyr 9 2 inh inhalation BID 05/16/25 History mcg-formot 4.8 mcg/actuation HFA inhaler (Breztri Aerosphere) celecoxib 200 mg capsule 200 mg PO DAILY 05/14/25 History lisinopril 40 mg tablet 40 mg PO DAILY 05/14/2504/25 History tizanidine 4 mg tablet 4 mg PO TID 05/14/25 5 History zolpidem 10 mg tablet 10 mg PO DAILY 05/14/2504/25 History estradiol 2 mg tablet 2 mg PO BID 05/16/25 5 History Allergies Allergy/AdvReac Type Severity Reaction Status Date / Time aspirin AdvReac Intermediate MAKES Verified 05/13/25 15:55 STOMACH BLEED Visit Medications Acetaminophen (Acetaminophen 325 Mg Tablet) 650 mg PO Q6H PRN PRN Reason: Fever >100.4 or pain 1-3 Stop: 06/12/25 22:06 Last Admin: 05/14/25 06:23 Dose: 650 mg Albuterol/Ipratropium (Albuterol/Ipratropium (Duoneb) Rt Rabia 3 Ml Nebu) 3 ml INH Q6HRRT PREET Stop: 06/15/25 12:59 Last Admin: 05/18/25 14:16 Dose: 3 ml Atorvastatin Calcium (Atorvastatin Calcium 20 Mg Tablet) 40 mg PO HS [facility] Stop: 06/15/25 20:59 Last Admin: 05/17/25 20:41 Dose: 40 mg Docusate Sodium (Docusate Sod 100 Mg Capsule) 100 mg PO QDAY [facility]; Protocol Stop: 06/13/25 08:59 Last Admin: 05/18/25 08:28 Dose: 100 mg Heparin Sodium (Porcine) (Heparin Sod Inj 5000 Unit/Ml Vial) 4,000 unit IV X1 ONE; Protocol Stop: 05/18/25 16:39 Hydromorphone HCl (Hydromorphone Inj 2 Mg/Ml Vial) 1 mg IVP Q6H PRN PRN Reason: pain 5-10 Stop: 05/23/25 08:39 Last Admin: 05/18/25 09:00 Dose: 1 mg Hydromorphone HCl (Hydromorphone Inj 2 Mg/Ml Vial) 1 mg IVP Q4HR PRN; Protocol PRN Reason: Breakthrough Pain Stop: 05/23/25 08:39 Last Admin: 05/18/25 16:53 Dose: 1 mg Heparin Sodium/Dextrose (Heparin In D5w Ivpb) 25,000 unit in 250 mls @ 18.001 mls/hr IV .[id number] [facility]; Protocol Stop: 06/01/25 22:59 Alteplase, Recombinant 4 mg/ (Sodium Chloride/ Sterile Water) 80 mls @ 14 mls/hr IV .[id number] [facility] Stop: 05/19/25 06:00 Nicotine (Nicotine Patch 21 Mg/24 Hr Patch.Td24) 21 mg TOP QDAY [facility] Stop: 06/13/25 08:09 Last Admin: 05/18/25 08:29 Dose: 21 mg Ondansetron HCl (Ondansetron Inj 2 Mg/Ml Inj 2 Ml) 4 mg IVP Q6H PRN; Protocol PRN Reason: NAUSEA OR VOMITING Stop: 06/12/25 22:06 Last Admin: 05/16/25 01:00 Dose: 4 mg Pantoprazole Sodium (Pantoprazole Inj 40 Mg Vial) 40 mg IVP QDAY [facility] Stop: 06/13/25 08:59 Last Admin: 05/18/25 08:28 Dose: 40 mg Polyethylene Glycol (Polyethylene Glycol 17 Gm Packet) 17 gm PO QDAY PREET Stop: 06/16/25 13:14 Last Admin: 05/18/25 08:29 Dose: 17 gm Zolpidem Tartrate (Zolpidem 5 Mg Tablet) 5 mg PO HS PRN PRN Reason: INSOMNIA Stop: 06/12/25 22:11 Last Admin: 05/15/25 20:37 Dose: 5 mg Discontinued Medications Hydrocodone Bitart/Acetaminophen (Hydrocodone/Apap 5/325 Tablet) 1 tab PO Q4HR PRN PRN Reason: pain 4-6 Stop: 05/19/25 01:52 Last Admin: 05/16/25 05:41 Dose: 1 tab Albuterol/Ipratropium (Albuterol/Ipratropium (Duoneb) Rt Rabia 3 Ml Nebu) 3 ml INH Q4HRRT PREET Stop: 06/12/25 22:59 Last Admin: 05/13/25 22:32 Dose: 3 ml Albuterol/Ipratropium (Albuterol/Ipratropium (Duoneb) Rt Rabia 3 Ml Nebu) 3 ml INH Q4HRRT PRN PRN Reason: shortness of breath Stop: 06/12/25 22:59 Enoxaparin Sodium (Enoxaparin Sod Inj 100 Mg/Ml Syringe) 100 mg 1 mg/kg (100 mg) SC BID [facility] Stop: 06/01/25 10:29 Last Admin: 05/18/25 11:06 Dose: 100 mg Heparin Sodium (Porcine) (Heparin Sod Inj 5000 Unit/Ml Vial) 4,000 unit IV X1 ONE; Protocol Stop: 05/13/25 17:56 Last Admin: 05/13/25 19:43 Dose: 4,000 unit Hydromorphone HCl (Hydromorphone Inj 2 Mg/Ml Vial) 2 mg IVP X1 ONE Stop: 05/14/25 10:25 Last Admin: 05/14/25 10:28 Dose: 2 mg Hydromorphone HCl (Hydromorphone Inj 2 Mg/Ml Vial) 1.5 mg IVP Q4HR PRN; Protocol PRN Reason: Pain 7-10 Stop: 05/19/25 10:36 Last Admin: 05/18/25 04:51 Dose: 1.5 mg Hydromorphone HCl (Hydromorphone Inj 2 Mg/Ml Vial) 1 mg IVP X1 ONE Stop: 05/17/25 16:43 Last Admin: 05/17/25 16:57 Dose: 1 mg Heparin Sodium/Dextrose (Heparin In D5w Ivpb) 25,000 unit in 250 mls @ 18.029 mls/hr IV .[id number] [facility]; Protocol Stop: 05/27/25 17:59 Last Titration: 05/14/25 16:06 Dose: 0 units/kg/hr, 0 mls/hr Alteplase, Recombinant 4 mg/ (Sodium Chloride/ Sterile Water) 80 mls @ 10 mls/hr IV .Q8H [facility] Stop: 05/16/25 13:59 Last Admin: 05/14/25 15:46 Dose: Not Given Alteplase, Recombinant 4 mg/ (Sodium Chloride/ Sterile Water) 80 mls @ 14 mls/hr IV .Q5H43M [facility] Stop: 05/17/25 15:59 Alteplase, Recombinant 4 mg/ (Sodium Chloride/ Sterile Water) 80 mls @ 14 mls/hr IV .Q5H43M [facility] Stop: 05/20/25 15:59 Last Admin: 05/18/25 04:49 Dose: 0.7 mg/hr, 14 mls/hr Magnesium Sulfate (Magnesium Sulfate Ivpb) 4 gm in 50 mls @ 12.5 mls/hr IV X1 ONE Stop: 05/17/25 11:57 Last Admin: 05/17/25 09:11 Dose: 12.5 mls/hr Magnesium Sulfate (Magnesium Sulfate Ivpb) 4 gm in 50 mls @ 12.5 mls/hr IV X1 ONE Stop: 05/18/25 12:05 Last Admin: 05/18/25 08:29 Dose: 12.5 mls/hr Morphine Sulfate (Morphine Sulf Inj 4 Mg/Ml Vial) 4 mg IVP X1 ONE Stop: 05/13/25 20:41 Last Admin: 05/13/25 21:08 Dose: 4 mg Morphine Sulfate (Morphine Sulf Inj 4 Mg/Ml Vial) 2 mg IVP Q4HR PRN PRN Reason: Pain 7-10 Stop: 05/19/25 01:52 Last Admin: 05/15/25 18:32 Dose: 2 mg Ondansetron HCl (Ondansetron Inj 2 Mg/Ml Inj 2 Ml) 4 mg IVP X1 ONE; Protocol Stop: 05/13/25 20:42 Last Admin: 05/13/25 21:08 Dose: 4 mg Potassium Phos/Sodium Phos (Naph,[facility] 1 Packet (1.5 Gm)) 1 packet PO X1 ONE Stop: 05/16/25 08:09 Last Admin: 05/16/25 09:38 Dose: 1 packet Potassium Phos/Sodium Phos (Naph,[facility] 1 Packet (1.5 Gm)) 1 packet PO X1 ONE Stop: 05/17/25 07:59 Last Admin: 05/17/25 09:08 Dose: 1 packet
[2025-05-18] MEDS: HEPARIN SOD INJ 5000 UNIT/ML VIAL 4000 UNIT IV (17:47)
[2025-05-18] MEDS: Heparin/D5w 25K 250 ML Ivpb 25,000 UNIT/250 ML BAG 18.001 UNIT IV (17:48)
[2025-05-18 17:50] LABS: Partial Thromboplastin Time 32.0 Seconds (22.0-36.0)
[2025-05-18] MEDS: ATORVASTATIN CALCIUM 20 MG TABLET 40 MG PO (20:42)
[2025-05-19] VITALS (22 sets, daily range): BP systolic 114–139; BP diastolic 66–88; PULSE 65–874; RESP 12–28; TEMP 36.1–36.8; O2SAT 91–99; BMI 39.1
[2025-05-19] MEDS: HYDROmorphone INJ 2 MG/ML VIAL 1 MG IVP ×5 (00:02→22:04)
[2025-05-19] MEDS: CATHFLO (ALTEPLASE) INJ 4 MG in SODIUM CHLORIDE 0.9% 76 ML, Sterile Water 4 ML 14 MG IV (00:30)
[2025-05-19 00:34] LABS: Partial Thromboplastin Time 84.0 Seconds (22.0-36.0)
[2025-05-19] MEDS: ALBUTEROL/IPRATROPIUM (Duoneb) RT SOL 3 ML NEBU INH ×2 (06:32→19:21)
--- NOTE | 2025-05-19 07:05 | PC.NURSE ---
pt left for procedure
[2025-05-19 07:31] LABS: Basophils # (Auto) 0.0 Thou/mm3 (0.0-0.2); Basophils % (Auto) 0 % (0-2.5); Eosinophils # (Auto) 0.1 Thou/mm3 (0.0-0.5); Eosinophils % (Auto) 1 % (0-10); Hematocrit 36.6 % (36.0-46.0); Hemoglobin 12.2 g/dL (12.0-16.0); Immature Granulocytes Auto 0.11 Thou/mm3 (0.00-0.00); Lymphocytes # (Auto) 2.2 Thou/mm3 (1.0-4.8); Lymphocytes % (Auto) 22 % (10-50); Mean Corpuscular HGB Conc 33.3 g/dl (31.0-37.0); Mean Corpuscular Hemoglobin 32.2 pg (25.0-35.0); Mean Corpuscular Volume 97 fL (80-100); Monocytes # (Auto) 1.1 Thou/mm3 (0.0-0.8); Monocytes % (Auto) 11 % (0-12); Neutrophils # (Auto) 6.8 Thou/mm3 (1.8-7.7); Neutrophils % (Auto) 65 % (37-80); Nucleated Red Blood Cell # 0.00 Thou/mm3 (0.00-0.00); Nucleated Red Blood Cell % 0 /100 WBC (0); Platelet Count 312 Thou/mm3 (140-440); RDW Standard Deviation 48.5 fL (36.4-46.3); Red Blood Count 3.79 Miln/mm3 (4.00-5.20); White Blood Count 10.4 Thou/mm3 (3.6-11.0)
[2025-05-19 07:52] LABS: INR 1.0 (0.9-1.3); Partial Thromboplastin Time 69.4 Seconds (22.0-36.0); Prothrombin Time 11.0 Seconds (9.0-12.2)
--- NOTE | 2025-05-19 08:00 | ESPR_ITS ---
<Statement entered by Dean Vaz MD - 05/19/25 17:43> Pt is seen at bedside in manager cath lab, pt is scheduled to undergo thrombectomy will continue heparin drip. DC cath flow thrombolysis. Patient was seen and examined by me personally. I have directly supervised and reviewed documentation by the team resident and agree with its findings. ------- Plan of care was discussed with the attending, Dr. Thi Vaz, PGY-2 Documentation for date of: 05/19/25 Subjective Subjective Interval history: NAEO. VSS. Patient continues to endorse left lower extremity pain and swelling this AM prior to thrombectomy. Underwent in-house thrombectomy this AM with Dr. Mary. DVT more chronic than expected, has significant stenosis with robust collaterals. Due to chronic stenosis, unable to resect much of the clot burden. Exam Vital Signs Temp Pulse Resp BP Pulse Ox O2 Del Method O2 Flow Rate 96.9 F 79 20 127/82 98 Room Air 1 05/19/25 04:00 05/19/25 06:33 05/19/25 06:33 05/19/25 04:00 05/19/25 06:33 05/19/25 00:00 05/19/25 06:33 FiO2 0.5 05/17/25 09:00 Narrative Exam General: No acute distress, well nourished Eye: PERRL, EOMI, normal conjunctiva, no scleral icterus HENT: Normocephalic, atraumatic, normal hearing, moist oral mucosa Neck: Supple, non-tender, no JVD, no lymphadenopathy Lungs: Left upper lung wheezing (improved from previous exam) Heart: Normal S1 and S2, no S3 or S4 appreciated. Normal rate and regular rhythm, no murmurs, rubs gallops, or edema. Peripheral pulses intact bilaterally, capillary refill brisk distally Abdomen: Soft, non-tender, non-distended, normal bowel sounds. No guarding or rebound tenderness. Musculoskeletal: L extremity swelling, and warmth from ankle to groin, enlarged circumference, TTP, without erythema, no numbness, toes and feet have full range of motion. pulses palpable 1+ bilaterally Skin: Skin is warm, dry, no rashes or lesions. No LLE skin changes Neurologic: Alert, awake and oriented x3. CN II-XII grossly intact. No focal neuro deficits. No signs of meningeal irritation noted. Psychiatric: Cooperative, appropriate mood and affect Objective Labs 05/20/25 04:17 05/20/25 04:17 Labs: Laboratory Results - last 24 hr 05/18/25 05/18/25 17:00 23:48 APTT 32.0 D 84.0 H D Quality Measures Quality Measures VTE prophylaxis Assessment & Plan Assessment Current Active Medications: Generic Name Dose Route Start Last Admin Trade Name Freq PRN Reason Stop Dose Admin Acetaminophen 650 mg 05/13/25 22:07 05/14/25 06:23 Acetaminophen 325 Mg Tablet PO 06/12/25 22:06 650 mg Q6H PRN Administration Fever >100.4 or pain 1-3 Albuterol/Ipratropium 3 ml 05/16/25 13:00 05/19/25 06:32 Albuterol/Ipratropium (Duoneb) Rt Rabia 3 Ml Nebu INH 06/15/25 12:59 3 ml Q6HRRT BRISA Administration Atorvastatin Calcium 40 mg 05/16/25 21:00 05/18/25 20:42 Atorvastatin Calcium 20 Mg Tablet PO 06/15/25 20:59 40 mg HS BRISA Administration Docusate Sodium 100 mg 05/14/25 09:00 05/18/25 08:28 Docusate Sod 100 Mg Capsule PO 06/13/25 08:59 100 mg QDAY BRISA Administration Protocol Hydromorphone HCl 1 mg 05/18/25 08:40 05/18/25 20:00 Hydromorphone Inj 2 Mg/Ml Vial IVP 05/23/25 08:39 1 mg Q6H PRN Administration pain 5-10 Hydromorphone HCl 1 mg 05/18/25 08:40 05/19/25 04:02 Hydromorphone Inj 2 Mg/Ml Vial IVP 05/23/25 08:39 1 mg Q4HR PRN Administration Breakthrough Pain Protocol Heparin Sodium/Dextrose 25,000 unit in 250 mls @ 18.001 mls/hr 05/18/25 17:30 05/19/25 00:47 Heparin In D5w Ivpb IV 06/01/25 17:29 15.33 units/kg/hr .[id number] BRISA 15.924 mls/hr Protocol Titration 17.33 UNITS/KG/HR Nicotine 21 mg 05/14/25 08:10 05/18/25 08:29 Nicotine Patch 21 Mg/24 Hr Patch.Td24 TOP 06/13/25 08:09 21 mg QDAY BRISA Administration Ondansetron HCl 4 mg 05/13/25 22:07 05/16/25 01:00 Ondansetron Inj 2 Mg/Ml Inj 2 Ml IVP 06/12/25 22:06 4 mg Q6H PRN Administration NAUSEA OR VOMITING Protocol Pantoprazole Sodium 40 mg 05/14/25 09:00 05/18/25 08:28 Pantoprazole Inj 40 Mg Vial IVP 06/13/25 08:59 40 mg QDAY BRISA Administration Polyethylene Glycol 17 gm 05/17/25 13:15 05/18/25 08:29 Polyethylene Glycol 17 Gm Packet PO 06/16/25 13:14 17 gm QDAY BRISA Administration Zolpidem Tartrate 5 mg 05/13/25 22:12 05/15/25 20:37 Zolpidem 5 Mg Tablet PO 06/12/25 22:11 5 mg HS PRN Administration INSOMNIA Plan 59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 Wells Score 4.5. undergoing cathflow for catheter directed thrombolysis. 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 Patient does not attest to any bruising or trauma to leg. Wells Score 4.5 (+clinical signs of DVT +3, previous DVT +1.5). Prior history of DVT from post state. Currently 4 days of leg swelling up to groin, Homans+, no numbness or paresthesias, just pain and swelling, still able to move toes with full range of motion of legs and ankle. Venous doppler US extensive occlusive deep vein thrombus, involving left common femoral, left superficial femoral, popliteal, peroneal veins as well as superficial greater saphenous vein. Labs coags are within normal limits. Started on heparin drip and ordered IR thrombolysis due to extensive proximal occlusions. Not concerned for DVT as patient has no chest pain or SOB, or increased work of breathing, ordered EKG to help support this. Dx -CT chest angio with no PE -EKG: nl sinus with pvcs -TSH: wnl -lipid panel: Elevated triglycerides and low HDL -Serial DVT US: - 05/15 with no significant improvement in DVT - 05/16: Similar to minimally improved (mid femoral vein) extensive clot burden in the deep veins and greater saphenous vein of LLE - 05/17: Similar extensive clot burden in deep veins and greater saphenous vein of LLE. Subcutaneous edema in lower leg. -05/18: Extensive thrombus in L common femoral, L superficial femoral veins. Some improvement with thrombus no longer in L popliteal, L peroneal, and L posterior tibial veins compared to 05/15 s/p Heparin gtt 05/13-05/14; 05/18-05/19 s/p Cath flow (L foot IV) 05/14-05/19 s/p weight based Lovenox 05/[address] Mary and Dr. Jamison: DVT more chronic than expected, has significant stenosis with robust collaterals. Due to chronic stenosis, unable to resect much of the clot burden. Plan: - Restarted heparin gtt - CTM PT/INT/PTT q6h - d/c Cathflow - Plan for top-down approach thrombectomy with Dr. 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 Pain mgmt: - Dilaudid 1 mg IV q6h PRN - Oxycodone IR 10 mg PO q6h PRN - Tylenol 650 mg PO q6h PRN #Tobacco Use disorder #COPD, not on home o2 #3cm RUL pulmonary nodule #Suspected PAD #Asthma On Brezti (budesonide/glycopyrrolate/formoterol fumerate) 2 puffs in AM and PM, albuterol rescue inhaler. pt smokes about .75 of a pack /day for the past several years, Pack years ~[address] chest angio with 3cm nodule Plan: -Duonebs 3ml INH Q6HRRT brisa -O2 nasal cannula PRN -Nicotine patch 21 qday -consider outpatient RAMA given claudications symptoms -smoking cessation education if interested to be provided upon discharge -recommend outpatient low dose CT in 6 months for monitoring pulmonary nodule. CAD CT angio gest with extensive calcifications of the LAD Plan: - outpatient cardiology work up given stable anginal symptoms HLD elevated triglycerides and low HDL Plan - Atorvastatin 40 mg PO QHS #Hx of Insomnia Zolpidem at home Plan: -Zolpidem 5 mg PO HS PRN #Electrolyte abnormalities #Hypophosphatemia Plan: - Replete as needed #Constipation - resolved Received mineral oil enema 05/18 1 moderate BM 05/18 Plan: - Docusate 100 mg PO daily - Polyethylene glycol 17 g PO daily Checklist Dispo: On heparin gtt, Pending repeat top-down thrombectomy Lines: PIV Diet: Regular Bowel Reg: Docusate 100 mg PO daily, Polyethylene glycol 17 g PO daily VTE ppx: heparin gtt, held for thrombectomy GI ppx: Pantoprazole 40 mg IV daily Pain mgmt: Dilaudid 1 mg IV q6h PRN, Oxycodone IR 10 mg PO q6h PRN, Tylenol 650 mg PO q6h PRN Code status: full Plan discussed with my Dr. Joseph Vaz and Dr. Thi Carter MD PGY1 Attending Provider Attestation/Addendum I have seen and examined the patient. I was physically present for the felix portions of the services provided including history, physical exam, diagnosis, treatment plans and orders. I agree with assessment and plan of care as documented by residents. Patient seen and examined at bedside this afternoon. Continues to have pain and swelling of left lower extremity. Underwent thrombectomy this morning with cardiology, patient was found to have multiple chronic DVTs with significant stenosis and collaterals, was only able to remove distal part of the clot and proximal part could not be removed. With heparin 60. Patient to undergo another attempt for thrombectomy using alternative approach. Denies any shortness of breath, saturating well on room air. Even though this this note was carefully revised there may still be minor errors in bottom liquor attendant due to voice recognition software. Martine Ness MD
[2025-05-19 08:38] LABS: Alanine Aminotransferase 14 U/L (10-49); Albumin, Serum 4.0 gm/dL (3.5-5.0); Albumin/Globulin Ratio 1.9 (1.2-2.2); Alkaline Phosphatase 38 U/L (46-116); Anion Gap 8 (7-16); Aspartate Amino Transferase 26 U/L (0-34); BUN/Creatinine Ratio 20 Ratio (12-20); Bilirubin,Total 0.2 mg/dL (0.3-1.2); Blood Urea Nitrogen 10 mg/dL (9-23); Calcium 8.2 mg/dL (8.3-10.6); Calcium (Corrected) 8.2 mg/dL (8.5-10.1); Carbon Dioxide 25.0 mMol/L (20.0-31.0); Chloride 104 mMol/L (98-107); Creatinine (Component) 0.5 mg/dL (0.6-1.3); Estimated Creatinine Clearance 145.7 mL/min (>60); Globulin 2.1 gm/dL (2.3-3.5); Glucose 96 mg/dL (74-106); Magnesium 2.1 mg/dL (1.6-2.6); Osmolality,Calculated 272 (275-295); Phosphorous 2.6 mg/dL (2.4-5.1); Potassium 4.7 mMol/L (3.4-5.1); Sodium 137 mMol/L (136-145); Total Protein 6.1 gm/dL (5.7-8.2); eGFR > 60 See Note
--- NOTE | 2025-05-19 09:36 | PC.SS ---
rounding note: Transfer cancelled. Patient pending thrombectomy here.
--- NOTE | 2025-05-19 10:09 | PC.NURSE ---
md ferro order hospitalist to place order for heparin drip and start time.
[2025-05-19 11:32] LABS: ACT (CATH LAB ONLY) 305.0 Seconds (89-169)
[2025-05-19 13:14] LABS: Partial Thromboplastin Time 28.1 Seconds (22.0-36.0)
--- NOTE | 2025-05-19 13:38 | ESPR_ITS ---
<Statement entered by Jessika Mary MD - 05/20/25 15:31> Patient underwent successful mechanical thrombectomy with computer-assisted vacuum thrombectomy penumbra surprisingly there was a complete occlusion near total occlusion of the mid femoral vein but distal femoral vein and popliteal vein thrombus successfully was removed unable to dilate this without significant risk there was a thrombus in the common femoral vein patient had significant discomfort recommended to have the procedure for left common femoral vein thrombus possibly next 2 days continue with IV heparin drip. Evaluate the patient after the procedure no complications will continue to monitor the patient if she remains symptomatic with severe swelling proceed with the mechanical thrombectomy of the left common femoral vein from right femoral approach possibly in May 21. Documentation for date of: 05/19/25 Subjective Subjective Interval history: Patient was seen and examined at bedside today; she was taken in the AM for mechanical thrombectomy using Penumbra and popliteal vein approach. Was able to remove distal part of clot; however, proximal part oculd not be removed. Will go back in on Saturday to remove remainder of blt via proximal approach. Exam Vital Signs Temp Pulse Resp BP Pulse Ox O2 Del Method O2 Flow Rate 97.4 F 77 21 H 120/86 H 96 Nasal Cannula 2 05/19/25 10:00 05/19/25 12:30 05/19/25 12:30 05/19/25 12:30 05/19/25 12:30 05/19/25 12:30 05/19/25 12:30 FiO2 0.5 05/17/25 09:00 Narrative Exam General: A/O x3, some pain, well-nourished, well-developed Eyes: PERRL, EOMI. Anicteric, vision grossly intact. Ears: No ear pain, no ear discharge, Hearing grossly intact. Nose: No nasal discharge. Mouth/Throat: Moist mucous membranes, no redness, no lesions. Neck: Neck supple, non-tender, no cervical lymphadenopathy. Lungs: Clear LUIS ANTONIO to auscultation and percussion, No accessory muscle use. Cardio: Normal S1/S2, regular rhythm, no murmurs, no JVD or carotid bruits. Abdomen: Soft, non-tender, no palpable masses, peristalsis present, no guarding or rebound. Extremities: L leg is significantly enlarged compared to R leg, with significant tenderness Skin: No rashes, no lesions, warm to touch. Neuro: No focal neurological deficits. Psych: Cooperative, appropriate mood and effect. Objective Labs 05/19/25 06:45 05/19/25 06:45 Labs: Laboratory Results - last 24 hr 05/18/25 05/18/25 05/19/25 17:00 23:48 06:45 WBC 10.4 RBC 3.79 L Hgb 12.2 Hct 36.6 MCV 97 MCH 32.2 MCHC 33.3 RDW Std Deviation 48.5 H Plt Count 312 D Neut % (Auto) 65 Lymph % (Auto) 22 Emmet % (Auto) 11 Eos % (Auto) 1 Baso % (Auto) 0 Neut # (Auto) 6.8 Lymph # (Auto) 2.2 Emmet # (Auto) 1.1 H Eos # (Auto) 0.1 Baso # (Auto) 0.0 Immature Gran # (Auto) 0.11 H Absolute Nucleated RBC 0.00 Immature Gran % 1 H Nucleated RBC % 0 PT 11.0 INR 1.0 APTT 32.0 D 84.0 H D 69.4 H D Activated Clotting Time Sodium 137 Potassium 4.7 Chloride 104 Carbon Dioxide 25.0 Anion Gap 8 BUN 10 Creatinine 0.5 L Estim Creat Clear Calc 145.7 eGFR > 60 BUN/Creatinine Ratio 20 Glucose 96 Calculated Osmolality 272 L Calcium 8.2 L Corrected Calcium 8.2 L Phosphorus 2.6 Magnesium 2.1 Total Bilirubin 0.2 L AST 26 ALT 14 Alkaline Phosphatase 38 L Total Protein 6.1 Albumin 4.0 Globulin 2.1 L Albumin/Globulin Ratio 1.9 05/19/25 05/19/25 10:24 12:50 WBC RBC Hgb Hct MCV MCH MCHC RDW Std Deviation Plt Count Neut % (Auto) Lymph % (Auto) Emmet % (Auto) Eos % (Auto) Baso % (Auto) Neut # (Auto) Lymph # (Auto) Emmet # (Auto) Eos # (Auto) Baso # (Auto) Immature Gran # (Auto) Absolute Nucleated RBC Immature Gran % Nucleated RBC % PT INR APTT 28.1 D Activated Clotting Time 305.0 H Sodium Potassium Chloride Carbon Dioxide Anion Gap BUN Creatinine Estim Creat Clear Calc eGFR BUN/Creatinine Ratio Glucose Calculated Osmolality Calcium Corrected Calcium Phosphorus Magnesium Total Bilirubin AST ALT Alkaline Phosphatase Total Protein Albumin Globulin Albumin/Globulin Ratio Quality Measures Quality Measures VTE prophylaxis Assessment & Plan Assessment Current Active Medications: Generic Name Dose Route Start Last Admin Trade Name Freq PRN Reason Stop Dose Admin Acetaminophen 650 mg 05/13/25 22:07 05/14/25 06:23 Acetaminophen 325 Mg Tablet PO 06/12/25 22:06 650 mg Q6H PRN Administration Fever >100.4 or pain 1-3 Albuterol/Ipratropium 3 ml 05/16/25 13:00 05/19/25 06:32 Albuterol/Ipratropium (Duoneb) Rt Rabia 3 Ml Nebu INH 06/15/25 12:59 3 ml Q6HRRT PREET Administration Atorvastatin Calcium 40 mg 05/16/25 21:00 05/18/25 20:42 Atorvastatin Calcium 20 Mg Tablet PO 06/15/25 20:59 40 mg HS PREET Administration Docusate Sodium 100 mg 05/14/25 09:00 05/19/25 09:07 Docusate Sod 100 Mg Capsule PO 06/13/25 08:59 Not Given QDAY PREET Protocol Hydromorphone HCl 1 mg 05/19/25 10:20 05/19/25 12:21 Hydromorphone Inj 2 Mg/Ml Vial IVP 05/23/25 08:39 1 mg Q6H PRN Administration pain 7-10 Heparin Sodium/Dextrose 25,000 unit in 250 mls @ 18.001 mls/hr 05/18/25 17:30 05/19/25 07:50 Heparin In D5w Ivpb IV 06/01/25 17:29 0 units/kg/hr .[id number] PREET 0 mls/hr Protocol Titration 17.33 UNITS/KG/HR Nicotine 21 mg 05/14/25 08:10 05/19/25 12:44 Nicotine Patch 21 Mg/24 Hr Patch.Td24 TOP 06/13/25 08:09 Not Given QDAY PREET Ondansetron HCl 4 mg 05/13/25 22:07 05/16/25 01:00 Ondansetron Inj 2 Mg/Ml Inj 2 Ml IVP 06/12/25 22:06 4 mg Q6H PRN Administration NAUSEA OR VOMITING Protocol Oxycodone HCl 10 mg 05/19/25 10:20 Oxycodone Hcl 5 Mg Ir Tab PO 05/24/25 10:19 Q6HR PRN pain 4-6 Pantoprazole Sodium 40 mg 05/14/25 09:00 05/19/25 09:07 Pantoprazole Inj 40 Mg Vial IVP 06/13/25 08:59 Not Given QDAY PREET Polyethylene Glycol 17 gm 05/17/25 13:15 05/19/25 09:08 Polyethylene Glycol 17 Gm Packet PO 06/16/25 13:14 Not Given QDAY PREET Zolpidem Tartrate 5 mg 05/13/25 22:12 05/15/25 20:37 Zolpidem 5 Mg Tablet PO 06/12/25 22:11 5 mg HS PRN Administration INSOMNIA Plan 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 Wells Score 4.5 (+clinical signs of DVT +3, previous DVT +1.5). Cardiology consulted for DVT. #Provoked extensive proximal DVT Prior history of DVT from post state. Currently 5 days of leg swelling and pain. Venous doppler US- extensive occlusive deep vein thrombus, involving left common femoral, left superficial femoral, popliteal, peroneal veins as well as superficial greater saphenous vein. Labs coags within normal limits. -Serial DVT US: - 05/15- no significant improvement in DVT - 05/16: Similar to minimally improved (mid femoral vein) extensive clot burden in the deep veins and greater saphenous vein of LLE - 05/17- Similar to previous - 05/18- improved compared to 05/15 Plan: - Rebolus Heparin 4000 units 1x - Restart Heparin drip protocol - Was able to remove distal part of clot; will attempt to remove other part on Saturday via thrombectomy using alternate approach - Increased dilaudid to q4h prn #Tobacco Use disorder #COPD, not on home o2 #3cm RUL pulmonary nodule #Suspected PAD #Asthma #CAD #HLD #Hx of Insomnia #Electrolyte abnormalities #Hypophosphatemia Per primary team This case was discussed with my attending physician, Dr. Mary. Adalid Olmos, PGY1
[2025-05-19] MEDS: HEPARIN SOD INJ 5000 UNIT/ML VIAL 8000 UNIT IV (13:52)
[2025-05-19] MEDS: Heparin/D5w 25K 250 ML Ivpb 25,000 UNIT/250 ML BAG 20.047 UNIT IV (13:59)
[2025-05-19] MEDS: oxyCODONE HCL 5 MG IR TAB 10 MG PO ×2 (14:08→20:07)
[2025-05-19] MEDS: ATORVASTATIN CALCIUM 20 MG TABLET 40 MG PO (20:07)
[2025-05-19 21:19] LABS: Partial Thromboplastin Time 125.2 Seconds (22.0-36.0)
[2025-05-20] VITALS (16 sets, daily range): BP systolic 121–137; BP diastolic 74–87; PULSE 68–88; RESP 12–20; TEMP 35.9–36.2; O2SAT 92–99; BMI 38.5
[2025-05-20] MEDS: ALBUTEROL/IPRATROPIUM (Duoneb) RT SOL 3 ML NEBU INH ×4 (00:48→18:48)
[2025-05-20] MEDS: HYDROmorphone INJ 2 MG/ML VIAL 1 MG IVP ×5 (02:34→21:58)
[2025-05-20] MEDS: Heparin/D5w 25K 250 ML Ivpb 25,000 UNIT/250 ML BAG 16.931 UNIT IV (04:07)
[2025-05-20 04:57] LABS: Basophils # (Auto) 0.1 Thou/mm3 (0.0-0.2); Basophils % (Auto) 0 % (0-2.5); Eosinophils # (Auto) 0.2 Thou/mm3 (0.0-0.5); Eosinophils % (Auto) 2 % (0-10); Hematocrit 34.9 % (36.0-46.0); Hemoglobin 11.7 g/dL (12.0-16.0); Immature Granulocytes Auto 0.20 Thou/mm3 (0.00-0.00); Lymphocytes # (Auto) 2.3 Thou/mm3 (1.0-4.8); Lymphocytes % (Auto) 20 % (10-50); Mean Corpuscular HGB Conc 33.5 g/dl (31.0-37.0); Mean Corpuscular Hemoglobin 32.3 pg (25.0-35.0); Mean Corpuscular Volume 96 fL (80-100); Monocytes # (Auto) 1.4 Thou/mm3 (0.0-0.8); Monocytes % (Auto) 12 % (0-12); Neutrophils # (Auto) 7.3 Thou/mm3 (1.8-7.7); Neutrophils % (Auto) 64 % (37-80); Nucleated Red Blood Cell # 0.02 Thou/mm3 (0.00-0.00); Nucleated Red Blood Cell % 0 /100 WBC (0); Platelet Count 332 Thou/mm3 (140-440); RDW Standard Deviation 48.0 fL (36.4-46.3); Red Blood Count 3.62 Miln/mm3 (4.00-5.20); White Blood Count 11.4 Thou/mm3 (3.6-11.0)
[2025-05-20 05:13] LABS: Alanine Aminotransferase 13 U/L (10-49); Albumin, Serum 4.0 gm/dL (3.5-5.0); Albumin/Globulin Ratio 1.7 (1.2-2.2); Alkaline Phosphatase 39 U/L (46-116); Anion Gap 7 (7-16); Aspartate Amino Transferase 21 U/L (0-34); BUN/Creatinine Ratio 17 Ratio (12-20); Bilirubin,Total 0.2 mg/dL (0.3-1.2); Blood Urea Nitrogen 10 mg/dL (9-23); Calcium 8.4 mg/dL (8.3-10.6); Calcium (Corrected) 8.4 mg/dL (8.5-10.1); Carbon Dioxide 25.9 mMol/L (20.0-31.0); Chloride 103 mMol/L (98-107); Creatinine (Component) 0.6 mg/dL (0.6-1.3); Estimated Creatinine Clearance 121.5 mL/min (>60); Globulin 2.4 gm/dL (2.3-3.5); Glucose 106 mg/dL (74-106); Magnesium 1.8 mg/dL (1.6-2.6); Osmolality,Calculated 270 (275-295); Phosphorous 2.7 mg/dL (2.4-5.1); Potassium 4.3 mMol/L (3.4-5.1); Sodium 136 mMol/L (136-145); Total Protein 6.4 gm/dL (5.7-8.2); eGFR > 60 See Note
[2025-05-20 05:23] LABS: INR 1.0 (0.9-1.3); Partial Thromboplastin Time 68.0 Seconds (22.0-36.0); Prothrombin Time 11.1 Seconds (9.0-12.2)
--- NOTE | 2025-05-20 07:54 | PD.RESPRO ---
Documentation for date of: 05/20/25 Subjective Subjective Interval history: NAEO. VSS. Continues to report stable LLE pain, managed well with current pain regimen per patient. Exam Vital Signs Temp Pulse Resp BP Pulse Ox O2 Del Method O2 Flow Rate 97.0 F 73 16 127/79 99 Nasal Cannula 2 05/20/25 04:00 05/20/25 06:11 05/20/25 06:11 05/20/25 04:00 05/20/25 06:11 05/20/25 04:00 05/20/25 04:00 FiO2 0.5 05/17/25 09:00 Narrative Exam General: No acute distress, well nourished Eye: PERRL, EOMI, normal conjunctiva, no scleral icterus HENT: Normocephalic, atraumatic, normal hearing, moist oral mucosa Neck: Supple, non-tender, no JVD, no lymphadenopathy Lungs: Left upper lung wheezing (improved from previous exam) Heart: Normal S1 and S2, no S3 or S4 appreciated. Normal rate and regular rhythm, no murmurs, rubs gallops, or edema. Peripheral pulses intact bilaterally, capillary refill brisk distally Abdomen: Soft, non-tender, non-distended, normal bowel sounds. No guarding or rebound tenderness. Musculoskeletal: L extremity swelling, and warmth from ankle to groin, enlarged circumference, TTP, without erythema, no numbness, toes and feet have full range of motion. pulses palpable 1+ bilaterally Skin: Skin is warm, dry, no rashes or lesions. No LLE skin changes Neurologic: Alert, awake and oriented x3. CN II-XII grossly intact. No focal neuro deficits. No signs of meningeal irritation noted. Psychiatric: Cooperative, appropriate mood and affect Objective Labs 05/20/25 04:17 05/20/25 04:17 Labs: Laboratory Results - last 24 hr 05/19/25 05/19/25 05/19/25 06:45 10:24 12:50 WBC 10.4 RBC 3.79 L Hgb 12.2 Hct 36.6 MCV 97 MCH 32.2 MCHC 33.3 RDW Std Deviation 48.5 H Plt Count 312 D Neut % (Auto) 65 Lymph % (Auto) 22 [place] % (Auto) 11 Eos % (Auto) 1 Baso % (Auto) 0 Neut # (Auto) 6.8 Lymph # (Auto) 2.2 [place] # (Auto) 1.1 H Eos # (Auto) 0.1 Baso # (Auto) 0.0 Immature Gran # (Auto) 0.11 H Absolute Nucleated RBC 0.00 Immature Gran % 1 H Nucleated RBC % 0 PT 11.0 INR 1.0 APTT 69.4 H D 28.1 D Activated Clotting Time 305.0 H Sodium 137 Potassium 4.7 Chloride 104 Carbon Dioxide 25.0 Anion Gap 8 BUN 10 Creatinine 0.5 L Estim Creat Clear Calc 145.7 eGFR > 60 BUN/Creatinine Ratio 20 Glucose 96 Calculated Osmolality 272 L Calcium 8.2 L Corrected Calcium 8.2 L Phosphorus 2.6 Magnesium 2.1 Total Bilirubin 0.2 L AST 26 ALT 14 Alkaline Phosphatase 38 L Total Protein 6.1 Albumin 4.0 Globulin 2.1 L Albumin/Globulin Ratio 1.9 05/19/25 05/20/25 20:17 04:17 WBC 11.4 H RBC 3.62 L Hgb 11.7 L Hct 34.9 L MCV 96 MCH 32.3 MCHC 33.5 RDW Std Deviation 48.0 H Plt Count 332 Neut % (Auto) 64 Lymph % (Auto) 20 [place] % (Auto) 12 Eos % (Auto) 2 Baso % (Auto) 0 Neut # (Auto) 7.3 Lymph # (Auto) 2.3 [place] # (Auto) 1.4 H Eos # (Auto) 0.2 Baso # (Auto) 0.1 Immature Gran # (Auto) 0.20 H Absolute Nucleated RBC 0.02 H Immature Gran % 2 H Nucleated RBC % 0 PT 11.1 INR 1.0 APTT 125.2 H* D 68.0 H D Activated Clotting Time Sodium 136 Potassium 4.3 Chloride 103 Carbon Dioxide 25.9 Anion Gap 7 BUN 10 Creatinine 0.6 Estim Creat Clear Calc 121.5 eGFR > 60 BUN/Creatinine Ratio 17 Glucose 106 Calculated Osmolality 270 L Calcium 8.4 Corrected Calcium 8.4 L Phosphorus 2.7 Magnesium 1.8 Total Bilirubin 0.2 L AST 21 ALT 13 Alkaline Phosphatase 39 L Total Protein 6.4 Albumin 4.0 Globulin 2.4 Albumin/Globulin Ratio 1.7 Quality Measures Quality Measures VTE prophylaxis Assessment & Plan Assessment Current Active Medications: Generic Name Dose Route Start Last Admin Trade Name Freq PRN Reason Stop Dose Admin Acetaminophen 650 mg 05/13/25 22:07 05/14/25 06:23 Acetaminophen 325 Mg Tablet PO 06/12/25 22:06 650 mg Q6H PRN Administration Fever >100.4 or pain 1-3 Albuterol/Ipratropium 3 ml 05/16/25 13:00 05/20/25 06:10 Albuterol/Ipratropium (Duoneb) Rt Rabia 3 Ml Nebu INH 06/15/25 12:59 3 ml Q6HRRT BRISA Administration Atorvastatin Calcium 40 mg 05/16/25 21:00 05/19/25 20:07 Atorvastatin Calcium 20 Mg Tablet PO 06/15/25 20:59 40 mg HS BRISA Administration Docusate Sodium 100 mg 05/14/25 09:00 05/19/25 09:07 Docusate Sod 100 Mg Capsule PO 06/13/25 08:59 Not Given QDAY BRISA Protocol Hydromorphone HCl 1 mg 05/19/25 17:27 05/20/25 07:44 Hydromorphone Inj 2 Mg/Ml Vial IVP 05/24/25 10:19 1 mg Q4H PRN Administration pain 7-10 Heparin Sodium/Dextrose 25,000 unit in 250 mls @ 18.001 mls/hr 05/18/25 17:30 05/20/25 06:30 Heparin In D5w Ivpb IV 06/01/25 17:29 16.3 units/kg/hr .[id number] BRISA 16.931 mls/hr Protocol Titration 17.33 UNITS/KG/HR Magnesium Sulfate 4 gm in 50 mls @ 12.5 mls/hr 05/20/25 07:53 Magnesium Sulfate Ivpb IV 05/20/25 11:52 X1 ONE Nicotine 21 mg 05/14/25 08:10 05/19/25 12:44 Nicotine Patch 21 Mg/24 Hr Patch.Td24 TOP 06/13/25 08:09 Not Given QDAY BRISA Ondansetron HCl 4 mg 05/13/25 22:07 05/16/25 01:00 Ondansetron Inj 2 Mg/Ml Inj 2 Ml IVP 06/12/25 22:06 4 mg Q6H PRN Administration NAUSEA OR VOMITING Protocol Oxycodone HCl 10 mg 05/19/25 10:20 05/19/25 20:07 Oxycodone Hcl 5 Mg Ir Tab PO 05/24/25 10:19 10 mg Q6HR PRN Administration pain 4-6 Pantoprazole Sodium 40 mg 05/14/25 09:00 05/19/25 09:07 Pantoprazole Inj 40 Mg Vial IVP 06/13/25 08:59 Not Given QDAY BRISA Polyethylene Glycol 17 gm 05/17/25 13:15 05/19/25 09:08 Polyethylene Glycol 17 Gm Packet PO 06/16/25 13:14 Not Given QDAY BRISA Zolpidem Tartrate 5 mg 05/13/25 22:12 05/15/25 20:37 Zolpidem 5 Mg Tablet PO 06/12/25 22:11 5 mg HS PRN Administration INSOMNIA Plan 59 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 Wells Score 4.5. undergoing cathflow for catheter directed thrombolysis. #Provoked extensive proximal DVT Virchow's triad: hypercoagulable, endothelial damage, stasis - patient is obese (hypercoagulable) and a long filler cigar roller machine (stasis). Patient does not attest to any bruising or trauma to leg. Wells Score 4.5 (+clinical signs of DVT +3, previous DVT +1.5). Prior history of DVT from post state. Currently 4 days of leg swelling up to groin, Homans+, no numbness or paresthesias, just pain and swelling, still able to move toes with full range of motion of legs and ankle. Venous doppler US extensive occlusive deep vein thrombus, involving left common femoral, left superficial femoral, popliteal, peroneal veins as well as superficial greater saphenous vein. Labs coags are within normal limits. Started on heparin drip and ordered IR thrombolysis due to extensive proximal occlusions. Not concerned for DVT as patient has no chest pain or SOB, or increased work of breathing, ordered EKG to help support this. Dx -CT chest angio with no PE -EKG: nl sinus with pvcs -TSH: wnl -lipid panel: Elevated triglycerides and low HDL -Serial DVT US: - 05/15 with no significant improvement in DVT - 05/16: Similar to minimally improved (mid femoral vein) extensive clot burden in the deep veins and greater saphenous vein of LLE - 05/17: Similar extensive clot burden in deep veins and greater saphenous vein of LLE. Subcutaneous edema in lower leg. -05/18: Extensive thrombus in L common femoral, L superficial femoral veins. Some improvement with thrombus no longer in L popliteal, L peroneal, and L posterior tibial veins compared to 05/15 s/p Heparin gtt 05/13-05/14; 05/18-05/19 s/p Cath flow (L foot IV) 05/14-05/19 s/p weight based Lovenox 05/[address] Mary and Dr. Jamison: DVT more chronic than expected, has significant stenosis with robust collaterals. Was able to remove distal part of clot. Due to chronic stenosis, unable to resect much of the proximal clot burden. Plan: - Restarted heparin gtt - CTM PT/INT/PTT q6h - Plan for top-down approach thrombectomy with Dr. 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 - Bedrest per Dr. Mary. Can consider PT eval scheduled for Saturday - Leukocytosis most likely 2/2 thrombectomy, but exchanged L hand 20G PIV 05/20 to limit source of infection Pain mgmt: - Dilaudid 1 mg IV q4h PRN - Oxycodone IR 10 mg PO q6h PRN - Tylenol 650 mg PO q6h PRN #Tobacco Use disorder #COPD, not on home o2 #3cm RUL pulmonary nodule #Suspected PAD #Asthma On Brezti (budesonide/glycopyrrolate/formoterol fumerate) 2 puffs in AM and PM, albuterol rescue inhaler. pt smokes about .75 of a pack /day for the past several years, Pack years ~[address] chest angio with 3cm nodule Plan: -Duonebs 3ml INH Q6HRRT brisa -O2 nasal cannula PRN -Nicotine patch 21 qday -consider outpatient RAMA given claudications symptoms -smoking cessation education if interested to be provided upon discharge -recommend outpatient low dose CT in 6 months for monitoring pulmonary nodule. CAD CT angio gest with extensive calcifications of the LAD Plan: - outpatient cardiology work up given stable anginal symptoms HLD elevated triglycerides and low HDL Plan - Atorvastatin 40 mg PO QHS #Hx of Insomnia Zolpidem at home Plan: -Zolpidem 5 mg PO HS PRN #Electrolyte abnormalities #Hypophosphatemia Plan: - Replete as needed #Constipation - resolved Received mineral oil enema 05/18 1 moderate BM 05/18 Plan: - Docusate 100 mg PO daily - Polyethylene glycol 17 g PO daily Checklist Dispo: On heparin gtt, Pending repeat top-down thrombectomy Lines: PIV Diet: Regular Bowel Reg: Docusate 100 mg PO daily, Polyethylene glycol 17 g PO daily VTE ppx: heparin gtt GI ppx: Pantoprazole 40 mg IV daily Pain mgmt: Dilaudid 1 mg IV q4h PRN, Oxycodone IR 10 mg PO q6h PRN, Tylenol 650 mg PO q6h PRN Code status: full Plan discussed with Dr. Thi Carter MD PGY1 Attending Provider Attestation/Addendum I have seen and examined the patient. I was physically present for the felix portions of the services provided including history, physical exam, diagnosis, treatment plans and orders. I agree with assessment and plan of care as documented by residents. Patient seen and examined at bedside this morning. Continues to have swelling and pain around left lower extremity. Continues to be on heparin drip. Vital signs are stable. Lab results show mild leukocytosis, rest of the labs are stable. Patient is planned for thrombectomy tomorrow, we will keep her n.p.o. after midnight. Even though this this note was carefully revised there may still be minor errors in athletic shoe designer due to voice recognition software. Martine Ness MD
[2025-05-20] MEDS: NICOTINE PATCH 21 MG/24 HR PATCH.TD24 TOP (08:17)
[2025-05-20] MEDS: DOCUSATE SOD 100 MG CAPSULE PO (08:17)
[2025-05-20] MEDS: POLYETHYLENE GLYCOL 17 GM PACKET PO (08:17)
[2025-05-20] MEDS: Magnesium Sulfate 4 GM Ivpb 4 GM/50 ML BAG IV (08:18)
[2025-05-20 08:25] LABS: Partial Thromboplastin Time 75.0 Seconds (22.0-36.0)
--- NOTE | 2025-05-20 10:52 | PC.PT ---
PT concepción received. Received Phone call from Dr. Carter (ordering physician) to initiate PT evaluation on Saturday. . Will hold PT evaluation at this time.
[2025-05-20 13:09] LABS: Partial Thromboplastin Time 41.7 Seconds (22.0-36.0)
--- NOTE | 2025-05-20 13:38 | ESPR_ITS ---
<Statement entered by Jessika Mary MD - 05/20/25 15:42> I personally examined evaluated this patient today in telemetry floor she still has a lot of pain she has phlegmasia cerulea dolens severe pain in her lower extremity removed the figure of 8 suture from the left popliteal region she still has extensive thrombus in common femoral vein despite anticoagulation will schedule the patient for thrombectomy of the common femoral vein via right femoral vein approach tomorrow morning continue IV heparin for now evaluated patient with resident physician PGY 1 Dr. Jose Roberto Olmos agree with the treatment plan recommendation and arrange for the procedure in the morning. Documentation for date of: 05/20/25 Subjective Subjective Interval history: Patient seen and examined at bedside; no acute events overnight. Still in significant pain in LLE, unchanged from yesterday. Exam Vital Signs Temp Pulse Resp BP Pulse Ox O2 Del Method O2 Flow Rate 96.8 F 76 16 132/74 H 98 Room Air 2 05/20/25 12:00 05/20/25 13:00 05/20/25 12:46 05/20/25 12:00 05/20/25 12:46 05/20/25 12:00 05/20/25 04:00 FiO2 0.5 05/17/25 09:00 Narrative Exam General: A/O x3, some pain, well-nourished, well-developed Eyes: PERRL, EOMI. Anicteric, vision grossly intact. Ears: No ear pain, no ear discharge, Hearing grossly intact. Nose: No nasal discharge. Mouth/Throat: Moist mucous membranes, no redness, no lesions. Neck: Neck supple, non-tender, no cervical lymphadenopathy. Lungs: Clear LUIS ANTONIO to auscultation and percussion, No accessory muscle use. Cardio: Normal S1/S2, regular rhythm, no murmurs, no JVD or carotid bruits. Abdomen: Soft, non-tender, no palpable masses, peristalsis present, no guarding or rebound. Extremities: L leg is significantly enlarged compared to R leg, with significant tenderness; rash behind knee at sight of previous procedure Skin: No rashes, no lesions, warm to touch. Neuro: No focal neurological deficits. Psych: Cooperative, appropriate mood and effect. Objective Labs 05/20/25 04:17 05/20/25 04:17 Labs: Laboratory Results - last 24 hr 11/26/25 11/27/25 11/27/25 20:17 04:17 07:20 WBC 11.4 H RBC 3.62 L Hgb 11.7 L Hct 34.9 L MCV 96 MCH 32.3 MCHC 33.5 RDW Std Deviation 48.0 H Plt Count 332 Neut % (Auto) 64 Lymph % (Auto) 20 [place] % (Auto) 12 Eos % (Auto) 2 Baso % (Auto) 0 Neut # (Auto) 7.3 Lymph # (Auto) 2.3 [place] # (Auto) 1.4 H Eos # (Auto) 0.2 Baso # (Auto) 0.1 Immature Gran # (Auto) 0.20 H Absolute Nucleated RBC 0.02 H Immature Gran % 2 H Nucleated RBC % 0 PT 11.1 INR 1.0 APTT 125.2 H* D 68.0 H D 75.0 H Sodium 136 Potassium 4.3 Chloride 103 Carbon Dioxide 25.9 Anion Gap 7 BUN 10 Creatinine 0.6 Estim Creat Clear Calc 121.5 eGFR > 60 BUN/Creatinine Ratio 17 Glucose 106 Calculated Osmolality 270 L Calcium 8.4 Corrected Calcium 8.4 L Phosphorus 2.7 Magnesium 1.8 Total Bilirubin 0.2 L AST 21 ALT 13 Alkaline Phosphatase 39 L Total Protein 6.4 Albumin 4.0 Globulin 2.4 Albumin/Globulin Ratio 1.7 05/20/25 12:40 WBC RBC Hgb Hct MCV MCH MCHC RDW Std Deviation Plt Count Neut % (Auto) Lymph % (Auto) [place] % (Auto) Eos % (Auto) Baso % (Auto) Neut # (Auto) Lymph # (Auto) [place] # (Auto) Eos # (Auto) Baso # (Auto) Immature Gran # (Auto) Absolute Nucleated RBC Immature Gran % Nucleated RBC % PT INR APTT 41.7 H D Sodium Potassium Chloride Carbon Dioxide Anion Gap BUN Creatinine Estim Creat Clear Calc eGFR BUN/Creatinine Ratio Glucose Calculated Osmolality Calcium Corrected Calcium Phosphorus Magnesium Total Bilirubin AST ALT Alkaline Phosphatase Total Protein Albumin Globulin Albumin/Globulin Ratio Quality Measures Quality Measures VTE prophylaxis Assessment & Plan Assessment Current Active Medications: Generic Name Dose Route Start Last Admin Trade Name Freq PRN Reason Stop Dose Admin Acetaminophen 650 mg 05/13/25 22:07 05/14/25 06:23 Acetaminophen 325 Mg Tablet PO 06/12/25 22:06 650 mg Q6H PRN Administration Fever >100.4 or pain 1-3 Albuterol/Ipratropium 3 ml 05/16/25 13:00 05/20/25 12:46 Albuterol/Ipratropium (Duoneb) Rt Rabia 3 Ml Nebu INH 06/15/25 12:59 3 ml Q6HRRT PREET Administration Atorvastatin Calcium 40 mg 05/16/25 21:00 05/19/25 20:07 Atorvastatin Calcium 20 Mg Tablet PO 06/15/25 20:59 40 mg HS PREET Administration Docusate Sodium 100 mg 05/14/25 09:00 05/20/25 08:17 Docusate Sod 100 Mg Capsule PO 06/13/25 08:59 100 mg QDAY PREET Administration Protocol Hydromorphone HCl 1 mg 05/19/25 17:27 05/20/25 12:31 Hydromorphone Inj 2 Mg/Ml Vial IVP 05/24/25 10:19 1 mg Q4H PRN Administration pain 7-10 Heparin Sodium/Dextrose 25,000 unit in 250 mls @ 18.001 mls/hr 05/18/25 17:30 05/20/25 06:30 Heparin In D5w Ivpb IV 06/01/25 17:29 16.3 units/kg/hr .[id number] PREET 16.931 mls/hr Protocol Titration 17.33 UNITS/KG/HR Nicotine 21 mg 05/14/25 08:10 05/20/25 08:17 Nicotine Patch 21 Mg/24 Hr Patch.Td24 TOP 06/13/25 08:09 21 mg QDAY PREET Administration Ondansetron HCl 4 mg 05/13/25 22:07 05/16/25 01:00 Ondansetron Inj 2 Mg/Ml Inj 2 Ml IVP 06/12/25 22:06 4 mg Q6H PRN Administration NAUSEA OR VOMITING Protocol Oxycodone HCl 10 mg 05/19/25 10:20 05/19/25 20:07 Oxycodone Hcl 5 Mg Ir Tab PO 05/24/25 10:19 10 mg Q6HR PRN Administration pain 4-6 Pantoprazole Sodium 40 mg 05/21/25 09:00 Pantoprazole 40 Mg Tablet PO 06/20/25 08:59 QDAY PREET Protocol Polyethylene Glycol 17 gm 05/17/25 13:15 05/20/25 08:17 Polyethylene Glycol 17 Gm Packet PO 06/16/25 13:14 17 gm QDAY PREET Administration Zolpidem Tartrate 5 mg 05/13/25 22:12 05/15/25 20:37 Zolpidem 5 Mg Tablet PO 06/12/25 22:11 5 mg HS PRN Administration INSOMNIA Plan 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 Wells Score 4.5 (+clinical signs of DVT +3, previous DVT +1.5). Cardiology consulted for DVT. #Provoked extensive proximal DVT Prior history of DVT from post state. Currently 5 days of leg swelling and pain. Venous doppler US- extensive occlusive deep vein thrombus, involving left common femoral, left superficial femoral, popliteal, peroneal veins as well as superficial greater saphenous vein. Labs coags within normal limits. -Serial DVT US: - 05/15- no significant improvement in DVT - 05/16: Similar to minimally improved (mid femoral vein) extensive clot burden in the deep veins and greater saphenous vein of LLE - 05/17- Similar to previous - 05/18- improved compared to 05/15 Plan: - Heparin drip protocol - Will attempt to remove proximal part of clot using antegrade approach from contralateral lower extremity on 05/21/25 - Dilaudid to q4h prn #Tobacco Use disorder #COPD, not on home o2 #3cm RUL pulmonary nodule #Suspected PAD #Asthma #CAD #HLD #Hx of Insomnia #Electrolyte abnormalities #Hypophosphatemia Per primary team This case was discussed with my attending physician, Dr. Mary. Adalid Olmos, PGY1
--- NOTE | 2025-05-20 14:34 | ESOP_ITS ---
RE: LASHELL MURILLO : 1965 DATE OF OPERATION: 05/19/2025 TELEPHONE INSTRUMENT SUPERVISOR: Jessika Mary M.D. APPARATUS LINEMAN: Jermain Hou M.D. PROCEDURES PERFORMED: 1. Selective ultrasound-guided access and selective cannulation of the left popliteal vein. 2. Left lower extremity venogram. 3. Percutaneous computer-assisted mechanical thrombectomy( Penumbra) of the left popliteal [place] [address]. 4. Conscious sedation, 1 hour duration. DIAGNOSES: 1. Extensive femoral vein and popliteal vein thromboses with painful swelling of left lower extremity. 2. Phlegmasia cerulea dolens. 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 Since then she recovered. She was doing well until last week she presented to the hospital with few days of severe swelling of left lower extremity, found to have extensive deep vein thrombosis involving common femoral, femoral, and popliteal veins. Despite IV anticoagulation and thrombolytic therapy including local thrombolytic therapy including Cathflo, local tPA infusion, patient has persistent painful swelling of the left lower extremity twice the size of the right lower extremity, unable to ambulate, and extensive presence of thrombus, hence percutaneous thrombectomy of the femoral and popliteal veins was recommended using computer-assisted vacuum thrombectomy (Penumbra) device. PROCEDURE DETAILS: Patient brought to cardiac catheterization laboratory. Informed consent was obtained and procedure was performed. Conscious sedation was given of 2 mg Versed, 100 mcg of fentanyl. Patient was placed in prone position. Left popliteal fossa area was prepared in sterile fashion, given 1% Xylocaine for local anesthesia. Ultrasound guidance was used and micropuncture technique was used to cannulate the left popliteal vein. Guidewire was introduced and a venogram was performed, showed occlusion of the femoral vein, as well as popliteal vein thrombus and collateral veins were seen. A 16-Icelandic sheath was then introduced, a short sheath by Cook. Penumbra 16-Icelandic Flash vacuum thrombectomy catheter was then advanced and vacuum thrombectomy was successfully performed. I was able to pass a guidewire through the collaterals all the way to the main vessel and all the way into the common iliac vein. An extra support Amplatz wire was used to place the sheath. After multiple thrombectomy passes, I could not pass into the mid femoral vein area where there was a severe stenosis of the entire femoral vein from mid and close to proximal segment. There was a thrombus present in the common femoral vein. There was filling of the common femoral vein from saphenous vein and collaterals. At this time, I felt that the patient was uncomfortable. At this point, felt that the patient should be stopped to have a staged procedure of the common femoral vein thrombectomy from an antegrade approach from right femoral vein at a later date. Thrombus was successfully removed. Subsequently, a [id number] suture was used to secure hemostasis. 60 mg of protamine was used to reverse the anticoagulation. Total heparin used was 10,000 units. A [id number] suture was used to close the area. Hemostasis was secured successfully. SUMMARY OF FINDINGS AND SUGGESTIONS: 1. Successful thrombectomy of the left popliteal and distal femoral vein filling via collaterals the common femoral vein. 2. 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 3. Presence of extensive thrombus in the left common femoral vein and proximal superficial proximal femoral vein as well. RECOMMENDATION: Patient will be continued on heparin therapy. We will plan to performing a staged approach of performing common femoral vein thrombectomy from right femoral approach in 1-2 days. DT: 13:53:39 TT: 14:33:00 Ref: [id number] - TID: [id number] [facility]
[2025-05-20] MEDS: HEPARIN SOD INJ 5000 UNIT/ML VIAL 4000 UNIT IVP (15:35)
[2025-05-20] MEDS: oxyCODONE HCL 5 MG IR TAB 10 MG PO (15:43)
[2025-05-20] MEDS: Heparin/D5w 25K 250 ML Ivpb 25,000 UNIT/250 ML BAG 19.009 UNIT IV (20:07)
[2025-05-20] MEDS: ATORVASTATIN CALCIUM 20 MG TABLET 40 MG PO (20:08)
[2025-05-20 22:25] LABS: Partial Thromboplastin Time 111.3 Seconds (22.0-36.0)
[2025-05-21] VITALS (22 sets, daily range): BP systolic 109–139; BP diastolic 70–100; PULSE 68–93; RESP 14–25; TEMP 36.1–36.6; O2SAT 92–100
[2025-05-21] MEDS: ALBUTEROL/IPRATROPIUM (Duoneb) RT SOL 3 ML NEBU INH ×3 (00:56→18:37)
[2025-05-21] MEDS: oxyCODONE HCL 5 MG IR TAB 10 MG PO (01:43)
[2025-05-21] MEDS: HYDROmorphone INJ 2 MG/ML VIAL 1 MG IVP ×3 (02:16→20:21)
[2025-05-21 06:35] LABS: Basophils # (Auto) 0.1 Thou/mm3 (0.0-0.2); Basophils % (Auto) 1 % (0-2.5); Eosinophils # (Auto) 0.2 Thou/mm3 (0.0-0.5); Eosinophils % (Auto) 1 % (0-10); Hematocrit 34.6 % (36.0-46.0); Hemoglobin 11.3 g/dL (12.0-16.0); Immature Granulocytes Auto 0.20 Thou/mm3 (0.00-0.00); Lymphocytes # (Auto) 2.6 Thou/mm3 (1.0-4.8); Lymphocytes % (Auto) 21 % (10-50); Mean Corpuscular HGB Conc 32.7 g/dl (31.0-37.0); Mean Corpuscular Hemoglobin 31.7 pg (25.0-35.0); Mean Corpuscular Volume 97 fL (80-100); Monocytes # (Auto) 1.2 Thou/mm3 (0.0-0.8); Monocytes % (Auto) 10 % (0-12); Neutrophils # (Auto) 8.4 Thou/mm3 (1.8-7.7); Neutrophils % (Auto) 66 % (37-80); Nucleated Red Blood Cell # 0.00 Thou/mm3 (0.00-0.00); Nucleated Red Blood Cell % 0 /100 WBC (0); Platelet Count 352 Thou/mm3 (140-440); RDW Standard Deviation 48.3 fL (36.4-46.3); Red Blood Count 3.57 Miln/mm3 (4.00-5.20); White Blood Count 12.6 Thou/mm3 (3.6-11.0)
[2025-05-21 06:56] LABS: Alanine Aminotransferase 19 U/L (10-49); Albumin, Serum 4.0 gm/dL (3.5-5.0); Albumin/Globulin Ratio 1.7 (1.2-2.2); Alkaline Phosphatase 41 U/L (46-116); Anion Gap 7 (7-16); Aspartate Amino Transferase 28 U/L (0-34); BUN/Creatinine Ratio 13 Ratio (12-20); Bilirubin,Total 0.2 mg/dL (0.3-1.2); Blood Urea Nitrogen 9 mg/dL (9-23); Calcium 8.7 mg/dL (8.3-10.6); Calcium (Corrected) 8.7 mg/dL (8.5-10.1); Carbon Dioxide 28.0 mMol/L (20.0-31.0); Chloride 103 mMol/L (98-107); Creatinine (Component) 0.7 mg/dL (0.6-1.3); Estimated Creatinine Clearance 103.7 mL/min (>60); Globulin 2.4 gm/dL (2.3-3.5); Glucose 101 mg/dL (74-106); Magnesium 1.9 mg/dL (1.6-2.6); Osmolality,Calculated 274 (275-295); Phosphorous 3.4 mg/dL (2.4-5.1); Potassium 4.6 mMol/L (3.4-5.1); Sodium 138 mMol/L (136-145); Total Protein 6.4 gm/dL (5.7-8.2); eGFR > 60 See Note
[2025-05-21 07:05] LABS: Partial Thromboplastin Time 58.7 Seconds (22.0-36.0)
[2025-05-21 07:54] LABS: INR 1.0 (0.9-1.3); Prothrombin Time 11.1 Seconds (9.0-12.2)
--- NOTE | 2025-05-21 08:00 | PC.NURSE ---
jose martinez stop heparin drip at 8am
--- NOTE | 2025-05-21 08:12 | ESPR_ITS ---
<Statement entered by Jessika Mary MD - 05/23/25 15:18> Patient is clinically doing well following thrombectomy not have any chest pain shortness of breath appears to be stable we did successfully do common femoral vein thrombectomy which helped her significantly we will evaluate the patient again tomorrow agree with the treatment plan recommendation as documented by resident physician Documentation for date of: 05/21/25 Subjective Subjective Interval history: Patient seen and examined at bedside; mechanical thrombectomy performed this AM, common femoral vein flow reestablished. Exam Vital Signs Temp Pulse Resp BP Pulse Ox O2 Del Method O2 Flow Rate 97.6 F 81 20 120/78 99 Nasal Cannula 1 05/21/25 04:00 05/21/25 07:21 05/21/25 07:21 05/21/25 04:00 05/21/25 07:21 05/21/25 04:00 05/21/25 07:21 FiO2 0.5 05/17/25 09:00 Narrative Exam General: A/O x3, some pain, well-nourished, well-developed Eyes: PERRL, EOMI. Anicteric, vision grossly intact. Ears: No ear pain, no ear discharge, Hearing grossly intact. Nose: No nasal discharge. Mouth/Throat: Moist mucous membranes, no redness, no lesions. Neck: Neck supple, non-tender, no cervical lymphadenopathy. Lungs: Clear LUIS ANTONIO to auscultation and percussion, No accessory muscle use. Cardio: Normal S1/S2, regular rhythm, no murmurs, no JVD or carotid bruits. Abdomen: Soft, non-tender, no palpable masses, peristalsis present, no guarding or rebound. Extremities: L leg is significantly enlarged compared to R leg, with significant tenderness. Skin: No rashes, no lesions, warm to touch. Neuro: No focal neurological deficits. Psych: Cooperative, appropriate mood and effect. Objective Labs 05/21/25 06:10 05/21/25 06:10 Labs: Laboratory Results - last 24 hr 05/20/25 05/20/25 05/20/25 07:20 12:40 21:10 WBC RBC Hgb Hct MCV MCH MCHC RDW Std Deviation Plt Count Neut % (Auto) Lymph % (Auto) [place] % (Auto) Eos % (Auto) Baso % (Auto) Neut # (Auto) Lymph # (Auto) [place] # (Auto) Eos # (Auto) Baso # (Auto) Immature Gran # (Auto) Absolute Nucleated RBC Immature Gran % Nucleated RBC % PT INR APTT 75.0 H 41.7 H D 111.3 H* D Sodium Potassium Chloride Carbon Dioxide Anion Gap BUN Creatinine Estim Creat Clear Calc eGFR BUN/Creatinine Ratio Glucose Calculated Osmolality Calcium Corrected Calcium Phosphorus Magnesium Total Bilirubin AST ALT Alkaline Phosphatase Total Protein Albumin Globulin Albumin/Globulin Ratio 05/21/25 06:10 WBC 12.6 H RBC 3.57 L Hgb 11.3 L Hct 34.6 L MCV 97 MCH 31.7 MCHC 32.7 RDW Std Deviation 48.3 H Plt Count 352 Neut % (Auto) 66 Lymph % (Auto) 21 [place] % (Auto) 10 Eos % (Auto) 1 Baso % (Auto) 1 Neut # (Auto) 8.4 H Lymph # (Auto) 2.6 [place] # (Auto) 1.2 H Eos # (Auto) 0.2 Baso # (Auto) 0.1 Immature Gran # (Auto) 0.20 H Absolute Nucleated RBC 0.00 Immature Gran % 2 H Nucleated RBC % 0 PT 11.1 INR 1.0 APTT 58.7 H D Sodium 138 Potassium 4.6 Chloride 103 Carbon Dioxide 28.0 Anion Gap 7 BUN 9 Creatinine 0.7 Estim Creat Clear Calc 103.7 eGFR > 60 BUN/Creatinine Ratio 13 Glucose 101 Calculated Osmolality 274 L Calcium 8.7 Corrected Calcium 8.7 Phosphorus 3.4 Magnesium 1.9 Total Bilirubin 0.2 L AST 28 ALT 19 Alkaline Phosphatase 41 L Total Protein 6.4 Albumin 4.0 Globulin 2.4 Albumin/Globulin Ratio 1.7 Quality Measures Quality Measures VTE prophylaxis Assessment & Plan Assessment Current Active Medications: Generic Name Dose Route Start Last Admin Trade Name Freq PRN Reason Stop Dose Admin Acetaminophen 650 mg 05/13/25 22:07 05/14/25 06:23 Acetaminophen 325 Mg Tablet PO 06/12/25 22:06 650 mg Q6H PRN Administration Fever >100.4 or pain 1-3 Albuterol/Ipratropium 3 ml 05/16/25 13:00 05/21/25 07:20 Albuterol/Ipratropium (Duoneb) Rt Rabia 3 Ml Nebu INH 06/15/25 12:59 3 ml Q6HRRT PREET Administration Atorvastatin Calcium 40 mg 05/16/25 21:00 05/20/25 20:08 Atorvastatin Calcium 20 Mg Tablet PO 06/15/25 20:59 40 mg HS PREET Administration Docusate Sodium 100 mg 05/14/25 09:00 05/20/25 08:17 Docusate Sod 100 Mg Capsule PO 06/13/25 08:59 100 mg QDAY PREET Administration Protocol Hydromorphone HCl 1 mg 05/19/25 17:27 05/21/25 02:16 Hydromorphone Inj 2 Mg/Ml Vial IVP 05/24/25 10:19 1 mg Q4H PRN Administration pain 7-10 Heparin Sodium/Dextrose 25,000 unit in 250 mls @ 18.001 mls/hr 05/18/25 17:30 05/21/25 07:20 Heparin In D5w Ivpb IV 06/01/25 17:29 15.3 units/kg/hr On Hold: 05/21/25 08:00 .[id number] PREET 15.893 mls/hr Protocol Titration 17.33 UNITS/KG/HR Nicotine 21 mg 05/14/25 08:10 05/20/25 08:17 Nicotine Patch 21 Mg/24 Hr Patch.Td24 TOP 06/13/25 08:09 21 mg QDAY PREET Administration Ondansetron HCl 4 mg 05/13/25 22:07 05/16/25 01:00 Ondansetron Inj 2 Mg/Ml Inj 2 Ml IVP 06/12/25 22:06 4 mg Q6H PRN Administration NAUSEA OR VOMITING Protocol Oxycodone HCl 10 mg 05/19/25 10:20 05/21/25 01:43 Oxycodone Hcl 5 Mg Ir Tab PO 05/24/25 10:19 10 mg Q6HR PRN Administration pain 4-6 Pantoprazole Sodium 40 mg 05/21/25 09:00 Pantoprazole 40 Mg Tablet PO 06/20/25 08:59 QDAY PREET Protocol Polyethylene Glycol 17 gm 05/17/25 13:15 05/20/25 08:17 Polyethylene Glycol 17 Gm Packet PO 06/16/25 13:14 17 gm QDAY PREET Administration Zolpidem Tartrate 5 mg 05/13/25 22:12 05/15/25 20:37 Zolpidem 5 Mg Tablet PO 06/12/25 22:11 5 mg HS PRN Administration INSOMNIA Plan 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 Wells Score 4.5 (+clinical signs of DVT +3, previous DVT +1.5). Cardiology consulted for DVT. #Provoked extensive proximal DVT Prior history of DVT from [place]. Currently 5 days of leg swelling and pain. Venous doppler US- extensive occlusive deep vein thrombus, involving left common femoral, left superficial femoral, popliteal, peroneal veins as well as superficial greater saphenous vein. Labs coags within normal limits. -Serial DVT US: - 05/15- no significant improvement in DVT - 05/16: Similar to minimally improved (mid femoral vein) extensive clot burden in the deep veins and greater saphenous vein of LLE - 05/17- Similar to previous - 05/18- improved compared to 05/15 Plan: - Heparin 8000 unit bolus - Restart heparin drip protocol - Consider transition to eliquis tomorrow or Saturday #Tobacco Use disorder #COPD, not on home o2 #3cm RUL pulmonary nodule #Suspected PAD #Asthma #CAD #HLD #Hx of Insomnia #Electrolyte abnormalities #Hypophosphatemia Per primary team This case was discussed with my attending physician, Dr. Mary. Adalid Olmos, PGY1
--- NOTE | 2025-05-21 11:54 | PC.NURSE ---
1111 patient is awake, alert, breathing unlabored, s/p left lower extremity mechanical thrombectomy, suture in place to right groin with 3 way stopcock, no bleeding or hematoma noted to right groin, sheath has been removed in dental laboratory technology teacher OR. Report received from Allison COELLO, patient to recover for 2 hours in dental laboratory technology teacher recovery. Heparin drip to restart today at 2pm.
--- NOTE | 2025-05-21 12:23 | PC.NURSE ---
patient done eating lunch tray, tolerated well with no nausea or vomiting
--- NOTE | 2025-05-21 13:48 | PC.NURSE ---
1325 patient is awake, alert, breathing unlabored, dressing to right groin with no active bleeding or hematoma, report given to Liseth Mcrae RN, patient transferred back to room 271 with tele box. ptt drawn at 1320, heparin drip to resume today 05/21/25 at 1400.
[2025-05-21 14:03] LABS: Partial Thromboplastin Time 27.2 Seconds (22.0-36.0)
[2025-05-21] MEDS: HEPARIN SOD INJ 5000 UNIT/ML VIAL 8000 UNIT IV (15:00)
[2025-05-21] MEDS: Heparin/D5w 25K 250 ML Ivpb 25,000 UNIT/250 ML BAG 19.894 UNIT IV ×2 (15:04→20:25)
[2025-05-21] MEDS: NICOTINE PATCH 21 MG/24 HR PATCH.TD24 TOP (15:34)
--- NOTE | 2025-05-21 15:52 | PD.RESPRO ---
Documentation for date of: 05/21/25 Subjective Subjective Interval history: Pt is seen and examined at bedside, pt underwent repeat thrombectomy for complete occluded femoral vein. Pt continues ot have significant pain and edema despite anticoagulation with heparin drip for several days. vitals are stable, labs are reviewed. Per cardiology recommendation will continue anticoagulation today with heparin bolus followed by heparin drip and tomorrow afternoon will transition to oral anticoagulation with Eliquis 10mg BID for 7 days -> eliquis 5mg BID for 6 months and 2.5mg thereafter. Pt will need close follow up with cardiology outpatient. Pt has no new complains Exam Vital Signs Temp Pulse Resp BP Pulse Ox O2 Del Method O2 Flow Rate 97.4 F 83 15 115/81 96 Nasal Cannula 2 05/21/25 13:15 05/21/25 13:15 05/21/25 13:15 05/21/25 13:15 05/21/25 13:15 05/21/25 13:15 05/21/25 13:15 FiO2 0.5 05/17/25 09:00 Narrative Exam GENERAL: A&Ox3 . Awake, Not in acute distress NEURO: no focal neurological deficits HEENT: Atraumatic, Normocephalic. mucous membranes moist. Eyes open, symmetrical, & clear HEART: Normal Heart Sounds LUNGS: Clear to auscultation with no wheezing or crackles. ABDOMEN: soft, non-distended, non-tender, bowel sounds heard, no guarding or rebound tenderness SKIN: No Rash or ecchymoses, left LE is warm to touch but no skin changes is noted EXTREMITIES:L extremity swelling, and warmth from ankle to groin, enlarged circumference, TTP, without erythema, no numbness, toes and feet have full range of motion. pulses palpable 1+ bilaterally Objective Labs 05/22/25 05:24 05/22/25 05:24 Labs: Laboratory Results - last 24 hr 05/20/25 05/21/25 05/21/25 21:10 06:10 13:26 WBC 12.6 H RBC 3.57 L Hgb 11.3 L Hct 34.6 L MCV 97 MCH 31.7 MCHC 32.7 RDW Std Deviation 48.3 H Plt Count 352 Neut % (Auto) 66 Lymph % (Auto) 21 [place] % (Auto) 10 Eos % (Auto) 1 Baso % (Auto) 1 Neut # (Auto) 8.4 H Lymph # (Auto) 2.6 [place] # (Auto) 1.2 H Eos # (Auto) 0.2 Baso # (Auto) 0.1 Immature Gran # (Auto) 0.20 H Absolute Nucleated RBC 0.00 Immature Gran % 2 H Nucleated RBC % 0 PT 11.1 INR 1.0 APTT 111.3 H* D 58.7 H D 27.2 D Sodium 138 Potassium 4.6 Chloride 103 Carbon Dioxide 28.0 Anion Gap 7 BUN 9 Creatinine 0.7 Estim Creat Clear Calc 103.7 eGFR > 60 BUN/Creatinine Ratio 13 Glucose 101 Calculated Osmolality 274 L Calcium 8.7 Corrected Calcium 8.7 Phosphorus 3.4 Magnesium 1.9 Total Bilirubin 0.2 L AST 28 ALT 19 Alkaline Phosphatase 41 L Total Protein 6.4 Albumin 4.0 Globulin 2.4 Albumin/Globulin Ratio 1.7 Quality Measures Quality Measures VTE prophylaxis Assessment & Plan Assessment Current Active Medications: Generic Name Dose Route Start Last Admin Trade Name Freq PRN Reason Stop Dose Admin Acetaminophen 650 mg 05/13/25 22:07 05/14/25 06:23 Acetaminophen 325 Mg Tablet PO 06/12/25 22:06 650 mg Q6H PRN Administration Fever >100.4 or pain 1-3 Albuterol/Ipratropium 3 ml 05/16/25 13:00 05/21/25 13:15 Albuterol/Ipratropium (Duoneb) Rt Rabia 3 Ml Nebu INH 06/15/25 12:59 Not Given Q6HRRT BRISA Atorvastatin Calcium 40 mg 05/16/25 21:00 05/20/25 20:08 Atorvastatin Calcium 20 Mg Tablet PO 06/15/25 20:59 40 mg HS BRISA Administration Docusate Sodium 100 mg 05/14/25 09:00 05/21/25 15:10 Docusate Sod 100 Mg Capsule PO 06/13/25 08:59 Not Given QDAY [facility] Protocol Hydromorphone HCl 1 mg 05/19/25 17:27 05/21/25 15:25 Hydromorphone Inj 2 Mg/Ml Vial IVP 05/24/25 10:19 1 mg Q4H PRN Administration pain 7-10 Heparin Sodium/Dextrose 25,000 unit in 250 mls @ 18.039 mls/hr 05/21/25 14:00 05/21/25 15:04 Heparin In D5w Ivpb IV 06/04/25 13:59 19.3 units/kg/hr .[id number] BRISA 19.894 mls/hr Protocol Administration 17.5 UNITS/KG/HR Nicotine 21 mg 05/14/25 08:10 05/21/25 15:34 Nicotine Patch 21 Mg/24 Hr Patch.Td24 TOP 06/13/25 08:09 21 mg QDAY BRISA Administration Ondansetron HCl 4 mg 05/13/25 22:07 05/16/25 01:00 Ondansetron Inj 2 Mg/Ml Inj 2 Ml IVP 06/12/25 22:06 4 mg Q6H PRN Administration NAUSEA OR VOMITING Protocol Oxycodone HCl 10 mg 05/19/25 10:20 05/21/25 01:43 Oxycodone Hcl 5 Mg Ir Tab PO 05/24/25 10:19 10 mg Q6HR PRN Administration pain 4-6 Pantoprazole Sodium 40 mg 05/21/25 09:00 05/21/25 15:10 Pantoprazole 40 Mg Tablet PO 06/20/25 08:59 Not Given QDAY BRISA Protocol Polyethylene Glycol 17 gm 05/17/25 13:15 05/21/25 15:10 Polyethylene Glycol 17 Gm Packet PO 06/16/25 13:14 Not Given QDAY BRISA Zolpidem Tartrate 5 mg 05/13/25 22:12 05/15/25 20:37 Zolpidem 5 Mg Tablet PO 06/12/25 22:11 5 mg HS PRN Administration INSOMNIA Plan 59 year old obese 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 Wells Score 4.5. undergoing cathflow for catheter directed thrombolysis. 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 #common femoral vein occlusion -Virchow's triad: hypercoagulable, endothelial damage, stasis - patient is obese (hypercoagulable) and a press tender long goods (stasis). Patient does not attest to any bruising or trauma to leg. -Wells Score 4.5 (+clinical signs of DVT +3, previous DVT +1.5). -Prior history of DVT from post state. Currently 4 days of leg swelling up to groin, Homans+, no numbness or paresthesias, just pain and swelling, still able to move toes with full range of motion of legs and ankle. -Venous doppler US extensive occlusive deep vein thrombus, involving left common femoral, left superficial femoral, popliteal, peroneal veins as well as superficial greater saphenous vein. -Labs coags are within normal limits. Started on heparin drip and ordered IR thrombolysis due to extensive proximal occlusions. Not concerned for DVT as patient has no chest pain or SOB, or increased work of breathing, ordered EKG to help support this. Dx -CT chest angio with no PE -EKG: nl sinus with pvcs -TSH: wnl -lipid panel: Elevated triglycerides and low HDL -Serial DVT US: - 05/15 with no significant improvement in DVT - 05/16: Similar to minimally improved (mid femoral vein) extensive clot burden in the deep veins and greater saphenous vein of LLE - 05/17: Similar extensive clot burden in deep veins and greater saphenous vein of LLE. Subcutaneous edema in lower leg. -05/18: Extensive thrombus in L common femoral, L superficial femoral veins. Some improvement with thrombus no longer in L popliteal, L peroneal, and L posterior tibial veins compared to 05/15 s/p Heparin gtt 05/13-05/14; 05/18-05/19 s/p Cath flow (L foot IV) 05/14-05/19 s/p weight based Lovenox given on 05/[address] Mary and Dr. Jamison: DVT more chronic than expected, has significant stenosis with robust collaterals. Was able to remove distal part of clot. Due to chronic stenosis, unable to resect much of the proximal clot burden. Plan: - Heparin bolus followed by Restarted heparin gtt until tomorrow 2pm then will transition to oral anticoagulation with eliquis - CTM PT/INT/PTT q6h - Pt underwent for top-down approach thrombectomy with Dr. 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 - Bedrest per Dr. Mary. Can consider PT eval scheduled for Saturday - Dilaudid 1 mg IV q4h PRN - Oxycodone IR 10 mg PO q6h PRN - Tylenol 650 mg PO q6h PRN #Tobacco Use disorder #COPD, not on home o2 #3cm RUL pulmonary nodule #Suspected PAD #Asthma On Brezti (budesonide/glycopyrrolate/formoterol fumerate) 2 puffs in AM and PM, albuterol rescue inhaler. pt smokes about .75 of a pack /day for the past several years, Pack years ~[address] chest angio with 3cm nodule Plan: -Duonebs 3ml INH Q6HRRT brisa -O2 nasal cannula PRN -Nicotine patch 21 qday -consider outpatient RAMA given claudications symptoms -smoking cessation education if interested to be provided upon discharge -recommend outpatient low dose CT in 6 months for monitoring pulmonary nodule. #CAD CT angio gest with extensive calcifications of the LAD Plan: - outpatient cardiology work up given stable anginal symptoms #Hyperlipidemia elevated triglycerides and low HDL Plan - Atorvastatin 40 mg PO QHS #Hx of Insomnia Zolpidem at home Plan: -Zolpidem 5 mg PO HS PRN #Electrolyte abnormalities #Hypophosphatemia Plan: - Replete as needed #Constipation - resolved Received mineral oil enema 05/18 1 moderate BM 05/18 Plan: - Docusate 100 mg PO daily - Polyethylene glycol 17 g PO daily Checklist Dispo: On heparin gtt, Pending repeat top-down thrombectomy Lines: PIV Diet: Regular Bowel Reg: Docusate 100 mg PO daily, Polyethylene glycol 17 g PO daily VTE ppx: heparin gtt GI ppx: Pantoprazole 40 mg IV daily Pain mgmt: Dilaudid 1 mg IV q4h PRN, Oxycodone IR 10 mg PO q6h PRN, Tylenol 650 mg PO q6h PRN Code status: full Assessment and plan discussed with my attending physician Dr. Thi Vaz (PGY-2)- Internal medicine resident Attending Provider Attestation/Addendum I have seen and examined the patient. I was physically present for the felix portions of the services provided including history, physical exam, diagnosis, treatment plans and orders. I agree with assessment and plan of care as documented by residents. Even though this this note was carefully revised there may still be minor errors in cd manufacturing supervisor due to voice recognition software. Martine Ness MD
[2025-05-21 16:37] LABS: Basophils # (Auto) 0.1 Thou/mm3 (0.0-0.2); Basophils % (Auto) 1 % (0-2.5); Eosinophils # (Auto) 0.2 Thou/mm3 (0.0-0.5); Eosinophils % (Auto) 2 % (0-10); Hematocrit 32.3 % (36.0-46.0); Hemoglobin 10.7 g/dL (12.0-16.0); Immature Granulocytes Auto 0.30 Thou/mm3 (0.00-0.00); Lymphocytes # (Auto) 2.7 Thou/mm3 (1.0-4.8); Lymphocytes % (Auto) 20 % (10-50); Mean Corpuscular HGB Conc 33.1 g/dl (31.0-37.0); Mean Corpuscular Hemoglobin 32.1 pg (25.0-35.0); Mean Corpuscular Volume 97 fL (80-100); Monocytes # (Auto) 1.4 Thou/mm3 (0.0-0.8); Monocytes % (Auto) 10 % (0-12); Neutrophils # (Auto) 8.6 Thou/mm3 (1.8-7.7); Neutrophils % (Auto) 65 % (37-80); Nucleated Red Blood Cell # 0.00 Thou/mm3 (0.00-0.00); Nucleated Red Blood Cell % 0 /100 WBC (0); Platelet Count 323 Thou/mm3 (140-440); RDW Standard Deviation 48.6 fL (36.4-46.3); Red Blood Count 3.33 Miln/mm3 (4.00-5.20); White Blood Count 13.3 Thou/mm3 (3.6-11.0)
--- NOTE | 2025-05-21 18:49 | ESOP_ITS ---
RE: LASHELL MURILLO : 1965 DATE OF OPERATION: 05/21/2025 pickling operator: Jessika Mary MD oxidation operator: Jaimee Hou MD PROCEDURES PERFORMED: 1. Selective cannulation of right femoral vein and placement of the femoral access with ultrasound guidance. 2. Ultrasound-guided access, right femoral vein. 3. Right femoral and vena cava angiogram. 4. Right iliofemoral and inferior vena cava angiogram. 5. Left iliac and femoral vein angiogram. 6. Percutaneous mechanical thrombectomy of the left common femoral vein and left profunda femoris vein and femoral vein using computer-assisted vacuum thrombectomy device, Penumbra [place], [place] [address]. 7. Conscious sedation, 1 hour duration. DIAGNOSES: 1. Extensive left lower extremity venous thrombosis. 2. 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 3. Painful swelling of the entire lower extremity due to common femoral vein occlusion. 4. Severe painful lower extremity secondary to deep vein thrombosis of the common femoral vein. 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 Previous history of possible DVT about 35 years ago. She came to the hospital with extensive deep vein thrombosis left lower extremity, starting in the common femoral vein and also extensive occlusion of femoral vein. Two days ago, patient underwent femoral mechanical thrombectomy of the left popliteal vein and distal femoral vein, but the mid femoral vein segment and proximal femoral vein segment were completely occluded due to extensive scarring due to old occlusion, but there were collaterals feeding the common femoral, but the common femoral vein itself was completely occluded with extensive thrombus. There was no antegrade flow seen. There was no forward flow seen. Patient continued to have severe swelling, painful swelling, unable to even step on her foot because of total occlusion. Despite IV heparin for last several days, there is no progress. Patient has severe swelling, hence common femoral vein thrombectomy and possible profunda and femoral vein thrombectomy was then recommended. Risks, benefits, and alternatives explained. PROCEDURE: Patient was given conscious sedation; total of 10 mg morphine, 150 mcg of fentanyl over the period of 1 hour, and 2-3 mg Versed was given. She has a lot of back pain requiring a lot of pain medication. Right femoral vein was cannulated with ultrasound guidance and a 6-Yi was introduced. The right iliofemoral and right vena cava angiogram showed no evidence of thrombi. Using a VCF diagnostic catheter, we crossed over to the left common left iliac vein and able to place a Glidewire and using an Amplatz wire, a 16-Yi sheath was introduced, placed in the left external iliac vein and angiogram showed the evidence of a total occlusion of the left common femoral vein and deep femoral and superficial femoral veins. They were not seen at all, totally occluded with no flow. At this point, decided to do Penumbra computer-assisted mechanical thrombectomy. It was a difficult procedure, since it was a totally occluded and hard lesion. We had to use a 110 cm glide catheter to go further into the femoral vein and an Amplatz stiff guide was used and I was able to and using an inner support catheter, Penumbra catheter was advanced into the superficial femoral vein. Thrombectomy was performed. Subsequently went to common femoral vein, thrombectomy was performed, and deep profunda femoris thrombectomy was also performed. After this procedure, final angiogram showed evidence of excellent nonobstructive flow in the common femoral vein and profunda femoral vein branches were also seen. The femoral vein itself was previously chronically occluded. The material that is removed was a large amount of material. The thrombotic material was removed and there was also evidence of a fibrotic lesion that was removed, suggesting that mid and proximal femoral vein is completely occluded chronically with extensive fibrosis, hence this is not amenable for any intervention at this time. I expect the patient to improve significantly since the common femoral is free of thrombus and there were no thrombus in the iliac veins as well. FINAL SUMMARY: 1. Successful mechanical thrombectomy using computer-assisted vacuum thrombectomy device, Penumbra Flash catheter with excellent results. 2. Chronic occlusion of the left femoral vein in the proximal mid segment. Recanalization of distal segments, filling via collaterals. RECOMMENDATIONS: A [id number] suture was performed and the sheath was removed. Protamine 50 mg was given to reverse the heparin and 3 hours later, heparin was restarted. Patient had no complication, no bleeding. The time for the entire procedure was 90 minutes. clinical laboratory scientist time was 90 minutes. DT: 18:07:27 TT: 18:47:00 Ref: [id number] - TID: [id number] MTDD
[2025-05-21] MEDS: ATORVASTATIN CALCIUM 20 MG TABLET 40 MG PO (20:22)
[2025-05-21 21:23] LABS: Partial Thromboplastin Time > 139.0 Seconds (22.0-36.0)
[2025-05-22] VITALS (15 sets, daily range): BP systolic 114–152; BP diastolic 74–88; PULSE 74–90; RESP 16–95; TEMP 36.1–36.9; O2SAT 92–99; BMI 37.7; BMI 13.0
[2025-05-22] MEDS: ALBUTEROL/IPRATROPIUM (Duoneb) RT SOL 3 ML NEBU INH ×2 (01:00→06:17)
[2025-05-22] MEDS: HYDROmorphone INJ 2 MG/ML VIAL 1 MG IVP (01:54)
[2025-05-22] MEDS: oxyCODONE HCL 5 MG IR TAB 10 MG PO ×3 (05:09→19:14)
[2025-05-22 06:37] LABS: Basophils # (Auto) 0.1 Thou/mm3 (0.0-0.2); Basophils % (Auto) 1 % (0-2.5); Eosinophils # (Auto) 0.2 Thou/mm3 (0.0-0.5); Eosinophils % (Auto) 2 % (0-10); Hematocrit 31.8 % (36.0-46.0); Hemoglobin 10.2 g/dL (12.0-16.0); Immature Granulocytes Auto 0.38 Thou/mm3 (0.00-0.00); Lymphocytes # (Auto) 2.9 Thou/mm3 (1.0-4.8); Lymphocytes % (Auto) 22 % (10-50); Mean Corpuscular HGB Conc 32.1 g/dl (31.0-37.0); Mean Corpuscular Hemoglobin 32.2 pg (25.0-35.0); Mean Corpuscular Volume 100 fL (80-100); Monocytes # (Auto) 1.3 Thou/mm3 (0.0-0.8); Monocytes % (Auto) 10 % (0-12); Neutrophils # (Auto) 8.3 Thou/mm3 (1.8-7.7); Neutrophils % (Auto) 63 % (37-80); Nucleated Red Blood Cell # 0.04 Thou/mm3 (0.00-0.00); Nucleated Red Blood Cell % 0 /100 WBC (0); Platelet Count 333 Thou/mm3 (140-440); RDW Standard Deviation 50.2 fL (36.4-46.3); Red Blood Count 3.17 Miln/mm3 (4.00-5.20); White Blood Count 13.1 Thou/mm3 (3.6-11.0)
[2025-05-22 07:02] LABS: Alanine Aminotransferase 24 U/L (10-49); Albumin, Serum 3.8 gm/dL (3.5-5.0); Albumin/Globulin Ratio 1.7 (1.2-2.2); Alkaline Phosphatase 42 U/L (46-116); Anion Gap 8 (7-16); Aspartate Amino Transferase 31 U/L (0-34); BUN/Creatinine Ratio 13 Ratio (12-20); Bilirubin,Total 0.2 mg/dL (0.3-1.2); Blood Urea Nitrogen 9 mg/dL (9-23); Calcium 9.5 mg/dL (8.3-10.6); Calcium (Corrected) 9.7 mg/dL (8.5-10.1); Carbon Dioxide 27.7 mMol/L (20.0-31.0); Chloride 101 mMol/L (98-107); Creatinine (Component) 0.7 mg/dL (0.6-1.3); Estimated Creatinine Clearance 102.1 mL/min (>60); Globulin 2.2 gm/dL (2.3-3.5); Glucose 97 mg/dL (74-106); Magnesium 1.7 mg/dL (1.6-2.6); Osmolality,Calculated 272 (275-295); Phosphorous 3.7 mg/dL (2.4-5.1); Potassium 4.5 mMol/L (3.4-5.1); Sodium 137 mMol/L (136-145); Total Protein 6.0 gm/dL (5.7-8.2); eGFR > 60 See Note
[2025-05-22 07:09] LABS: Partial Thromboplastin Time 61.5 Seconds (22.0-36.0)
--- NOTE | 2025-05-22 07:40 | ESPR_ITS ---
<Statement entered by Dean Vaz MD - 05/22/25 16:28> Pt is seen at bedside, the Left LE swelling has improved, and it is less tense. Pt is able to ambulate off the bed. Will order PT for tomorrow. Pt is transitioned to PO anticoagulation with eliquis and anticipate discharge tomorrow. vitals are stable, labs are reviewed, Hgb is stable. Patient was seen and examined by me personally. I have directly supervised and reviewed documentation by the team resident and agree with its findings. ------- Plan of care was discussed with the attending, Dr. Thi Vaz, PGY-2 Documentation for date of: 05/22/25 Subjective Subjective Interval history: NAEO. VSS. 1 BM. s/p proximal thrombectomy, pain has somewhat improved today. Exam Vital Signs Temp Pulse Resp BP Pulse Ox O2 Del Method O2 Flow Rate 97.6 F 82 17 119/74 99 Nasal Cannula 2 05/22/25 04:00 05/22/25 06:17 05/22/25 06:17 05/22/25 04:00 05/22/25 06:17 05/22/25 04:00 05/22/25 04:00 FiO2 0.5 05/17/25 09:00 Narrative Exam General: No acute distress, well nourished Eye: PERRL, EOMI, normal conjunctiva, no scleral icterus HENT: Normocephalic, atraumatic, normal hearing, moist oral mucosa Neck: Supple, non-tender, no JVD, no lymphadenopathy Lungs: CTAB, spO2 >90% on RA. Non labored respiration. Heart: Normal S1 and S2, no S3 or S4 appreciated. Normal rate and regular rhythm, no murmurs, rubs gallops, or edema. Peripheral pulses intact bilaterally, capillary refill brisk distally Abdomen: Soft, non-tender, non-distended, normal bowel sounds. No guarding or rebound tenderness. Musculoskeletal: L extremity swelling, and warmth from ankle to groin, enlarged circumference, TTP (improved from previous exam), without erythema, no numbness, toes and feet have full range of motion. pulses palpable 1+ bilaterally. Right femoral access site clean with Tegaderm in place Skin: Skin is warm, dry, no rashes or lesions. No LLE skin changes Neurologic: Alert, awake and oriented x3. CN II-XII grossly intact. No focal neuro deficits. No signs of meningeal irritation noted. Psychiatric: Cooperative, appropriate mood and affect Objective Labs 05/23/25 04:56 05/23/25 04:56 Labs: Laboratory Results - last 24 hr 05/21/25 05/21/25 05/21/25 06:10 13:26 15:58 WBC 13.3 H RBC 3.33 L Hgb 10.7 L Hct 32.3 L MCV 97 MCH 32.1 MCHC 33.1 RDW Std Deviation 48.6 H Plt Count 323 Neut % (Auto) 65 Lymph % (Auto) 20 [place] % (Auto) 10 Eos % (Auto) 2 Baso % (Auto) 1 Neut # (Auto) 8.6 H Lymph # (Auto) 2.7 [place] # (Auto) 1.4 H Eos # (Auto) 0.2 Baso # (Auto) 0.1 Immature Gran # (Auto) 0.30 H Absolute Nucleated RBC 0.00 Immature Gran % 2 H Nucleated RBC % 0 PT 11.1 INR 1.0 APTT 27.2 D Sodium Potassium Chloride Carbon Dioxide Anion Gap BUN Creatinine Estim Creat Clear Calc eGFR BUN/Creatinine Ratio Glucose Calculated Osmolality Calcium Corrected Calcium Phosphorus Magnesium Total Bilirubin AST ALT Alkaline Phosphatase Total Protein Albumin Globulin Albumin/Globulin Ratio 05/21/25 05/22/25 19:52 05:24 WBC 13.1 H RBC 3.17 L Hgb 10.2 L Hct 31.8 L MCV 100 MCH 32.2 MCHC 32.1 RDW Std Deviation 50.2 H Plt Count 333 Neut % (Auto) 63 Lymph % (Auto) 22 [place] % (Auto) 10 Eos % (Auto) 2 Baso % (Auto) 1 Neut # (Auto) 8.3 H Lymph # (Auto) 2.9 [place] # (Auto) 1.3 H Eos # (Auto) 0.2 Baso # (Auto) 0.1 Immature Gran # (Auto) 0.38 H Absolute Nucleated RBC 0.04 H Immature Gran % 3 H Nucleated RBC % 0 PT INR APTT > 139.0 H* D 61.5 H D Sodium 137 Potassium 4.5 Chloride 101 Carbon Dioxide 27.7 Anion Gap 8 BUN 9 Creatinine 0.7 Estim Creat Clear Calc 102.1 eGFR > 60 BUN/Creatinine Ratio 13 Glucose 97 Calculated Osmolality 272 L Calcium 9.5 Corrected Calcium 9.7 Phosphorus 3.7 Magnesium 1.7 Total Bilirubin 0.2 L AST 31 ALT 24 Alkaline Phosphatase 42 L Total Protein 6.0 Albumin 3.8 Globulin 2.2 L Albumin/Globulin Ratio 1.7 Quality Measures Quality Measures VTE prophylaxis Assessment & Plan Assessment Current Active Medications: Generic Name Dose Route Start Last Admin Trade Name Freq PRN Reason Stop Dose Admin Acetaminophen 650 mg 05/13/25 22:07 05/14/25 06:23 Acetaminophen 325 Mg Tablet PO 06/12/25 22:06 650 mg Q6H PRN Administration Fever >100.4 or pain 1-3 Albuterol/Ipratropium 3 ml 05/16/25 13:00 05/22/25 06:17 Albuterol/Ipratropium (Duoneb) Rt Rabia 3 Ml Nebu INH 06/15/25 12:59 3 ml Q6HRRT PREET Administration Atorvastatin Calcium 40 mg 05/16/25 21:00 05/21/25 20:22 Atorvastatin Calcium 20 Mg Tablet PO 06/15/25 20:59 40 mg HS PREET Administration Docusate Sodium 100 mg 05/14/25 09:00 05/21/25 15:10 Docusate Sod 100 Mg Capsule PO 06/13/25 08:59 Not Given QDAY [facility] Protocol Hydromorphone HCl 1 mg 05/19/25 17:27 05/22/25 01:54 Hydromorphone Inj 2 Mg/Ml Vial IVP 05/24/25 10:19 1 mg Q4H PRN Administration pain 7-10 Heparin Sodium/Dextrose 25,000 unit in 250 mls @ 18.039 mls/hr 05/21/25 14:00 05/21/25 22:25 Heparin In D5w Ivpb IV 06/04/25 13:59 16.3 units/kg/hr .[id number] PREET 16.802 mls/hr Protocol Titration 17.5 UNITS/KG/HR Nicotine 21 mg 05/14/25 08:10 05/21/25 15:34 Nicotine Patch 21 Mg/24 Hr Patch.Td24 TOP 06/13/25 08:09 21 mg QDAY PREET Administration Ondansetron HCl 4 mg 05/13/25 22:07 05/16/25 01:00 Ondansetron Inj 2 Mg/Ml Inj 2 Ml IVP 06/12/25 22:06 4 mg Q6H PRN Administration NAUSEA OR VOMITING Protocol Oxycodone HCl 10 mg 05/19/25 10:20 05/22/25 05:09 Oxycodone Hcl 5 Mg Ir Tab PO 05/24/25 10:19 10 mg Q6HR PRN Administration pain 4-6 Pantoprazole Sodium 40 mg 05/21/25 09:00 05/21/25 15:10 Pantoprazole 40 Mg Tablet PO 06/20/25 08:59 Not Given QDAY PREET Protocol Polyethylene Glycol 17 gm 05/17/25 13:15 05/21/25 15:10 Polyethylene Glycol 17 Gm Packet PO 06/16/25 13:14 Not Given QDAY PREET Zolpidem Tartrate 5 mg 05/13/25 22:12 05/15/25 20:37 Zolpidem 5 Mg Tablet PO 06/12/25 22:11 5 mg HS PRN Administration INSOMNIA Plan 59 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 Patient does not attest to any bruising or trauma to leg. -Wells Score 4.5 (+clinical signs of DVT +3, previous DVT +1.5). -Prior history of DVT from post state. Currently 4 days of leg swelling up to groin, Homans+, no numbness or paresthesias, just pain and swelling, still able to move toes with full range of motion of legs and ankle. -Venous doppler US extensive occlusive deep vein thrombus, involving left common femoral, left superficial femoral, popliteal, peroneal veins as well as superficial greater saphenous vein. -Labs coags are within normal limits. Started on heparin drip and ordered IR thrombolysis due to extensive proximal occlusions. Not concerned for DVT as patient has no chest pain or SOB, or increased work of breathing, ordered EKG to help support this. Dx CT chest angio with no PE EKG: nl sinus with pvcs TSH: wnl lipid panel: Elevated triglycerides and low HDL Serial DVT US: - 05/15 with no significant improvement in DVT - 05/16: Similar to minimally improved (mid femoral vein) extensive clot burden in the deep veins and greater saphenous vein of LLE - 05/17: Similar extensive clot burden in deep veins and greater saphenous vein of LLE. Subcutaneous edema in lower leg. -05/18: Extensive thrombus in L common femoral, L superficial femoral veins. Some improvement with thrombus no longer in L popliteal, L peroneal, and L posterior tibial veins compared to 05/15 s/p Heparin gtt 05/13-05/14; 05/18-05/19; 05/19-05/22 s/p Cath flow (L foot IV) 05/14-05/19 s/p weight based Lovenox given on 05/[address] Mary and Dr. Jamison 05/19: DVT more chronic than expected, has significant stenosis with robust collaterals. Was able to remove distal part of clot. Due to chronic stenosis, unable to resect much of the proximal clot burden. Thrombectomy with Dr. Mary and Dr. Jamison 05/21: Thrombectomy of L common femoral vein, L profunda femoris vein, and L femoral vein. Penumbra Flash catheter successfully. f=Final angiogram showed evidence of excellent nonobstructive flow in the common femoral vein and profunda femoral vein branches were also seen. The femoral vein itself was previously chronically occluded. Evidence of a fibrotic lesion that was removed, suggesting that mid and proximal femoral vein is completely occluded chronically with extensive fibrosis, hence this is not amenable for any intervention at this time. Plan: - Transition to eliquis 10 mg BID for 7 days and then 5 mg bid for 6 months and then 2.5mg thereafter - Pending PT eval - Dilaudid 1 mg IV q4h PRN - d/c due to transition to only PO pain meds - Oxycodone IR 10 mg PO q6h PRN - Tylenol 650 mg PO q6h PRN #Tobacco Use disorder #COPD, not on home o2 #3cm RUL pulmonary nodule #Suspected PAD #Asthma On Brezti (budesonide/glycopyrrolate/formoterol fumerate) 2 puffs in AM and PM, albuterol rescue inhaler. pt smokes about .75 of a pack /day for the past several years, Pack years ~[address] chest angio with 3cm nodule Plan: -Duonebs 3ml INH Q6HRRT PRN -O2 nasal cannula PRN -Nicotine patch 21 qday -consider outpatient RAMA given claudications symptoms -smoking cessation education if interested to be provided upon discharge -recommend outpatient low dose CT in 6 months for monitoring pulmonary nodule. #CAD CT angio gest with extensive calcifications of the LAD Plan: - outpatient cardiology work up given stable anginal symptoms #Hyperlipidemia elevated triglycerides and low HDL Plan - Atorvastatin 40 mg PO QHS #Hx of Insomnia Zolpidem at home Plan: -Zolpidem 5 mg PO HS PRN #Electrolyte abnormalities #Hypophosphatemia Plan: - Replete as needed #Constipation - resolved Received mineral oil enema 05/18 1 moderate BM 05/18 Plan: - Docusate 100 mg PO daily - Polyethylene glycol 17 g PO daily Checklist Dispo: Pending PT eval, transition to Eliquis Lines: PIV Diet: Regular Bowel Reg: Docusate 100 mg PO daily, Polyethylene glycol 17 g PO daily VTE ppx: heparin gtt GI ppx: Pantoprazole 40 mg IV daily Pain mgmt: Oxycodone IR 10 mg PO q6h PRN, Tylenol 650 mg PO q6h PRN Code status: full Plan discussed with Dr. Joseph Vaz and Dr. Thi Carter MD PGY1 Attending Provider Attestation/Addendum I have seen and examined the patient. I was physically present for the felxi portions of the services provided including history, physical exam, diagnosis, treatment plans and orders. I agree with assessment and plan of care as documented by residents. Even though this this note was carefully revised there may still be minor errors in hatchery man due to voice recognition software. Martine Ness MD
[2025-05-22] MEDS: NICOTINE PATCH 21 MG/24 HR PATCH.TD24 TOP (08:56)
[2025-05-22] MEDS: PANTOPRAZOLE 40 MG TABLET PO (08:56)
[2025-05-22] MEDS: Heparin/D5w 25K 250 ML Ivpb 25,000 UNIT/250 ML BAG 16.802 UNIT IV (13:13)
[2025-05-22 13:38] LABS: Partial Thromboplastin Time 47.0 Seconds (22.0-36.0)
[2025-05-22] MEDS: ZOLPIDEM 5 MG TABLET PO (20:42)
[2025-05-22] MEDS: ATORVASTATIN CALCIUM 20 MG TABLET 40 MG PO (20:42)
[2025-05-22] MEDS: APIXABAN 2.5 MG TABLET 10 MG PO (20:44)
--- NOTE | 2025-05-22 23:53 | ESPR_ITS ---
RE: LASHELL MURILLO : 1965 DATE OF SERVICE: 05/22/2025 SUBJECTIVE: This 59-year-old lady was admitted to the hospital with extensive deep vein thrombosis, requiring thrombectomy. Both femoral vein as well as common femoral thrombectomy was performed yesterday. Following the procedure, there is significant improvement of swelling. Definitely softened, not tight, not tense anymore. The patient is still getting IV heparin drip and will be changed to Eliquis later today. Patient is not getting physical therapy. Right groin site of puncture showed no bleeding, no ecchymosis. I removed the dressing and a [id number] pursestring suture was removed. Patient is comfortable, still having some pain in her groin and the back of the right groin and left popliteal area, but slowly, will get physical therapy today. Patient is tolerating anticoagulation well. Lab data unremarkable. OBJECTIVE: Vital Signs: Remain stable. Her blood pressure 126/70, pulse rate 80, respirations 18, temperature normal. Lungs: Clear. Heart: Sounds regular. No gallops. Abdomen: Thin and soft. Extremities: Left lower extremity shows significant swelling, but at least it is less tight and definite reduction of edema. IMPRESSION: 1. Extensive iliofemoral vein thrombosis, common femoral vein thrombosis, requiring complete vein thrombectomy. 2. Mild hypertension, stable. RECOMMENDATIONS: Patient will be continued on heparin till later today and change to Eliquis. If she ambulates well, is feeling well enough to go home tomorrow, she can be discharged home on 10 mg b.i.d. of Eliquis for 7 days, followed by 5 mg b.i.d. I will see the patient for followup within 1 week following discharge. DT: 23:22:48 TT: 23:52:00 Ref: [id number] - TID: [id number]
[2025-05-23] VITALS (8 sets, daily range): BP systolic 104–132; BP diastolic 57–86; PULSE 76–87; RESP 18–98; TEMP 36.1–36.4; O2SAT 93–98; BMI 38.2
[2025-05-23] MEDS: oxyCODONE HCL 5 MG IR TAB 10 MG PO (05:13)
[2025-05-23 06:11] LABS: Basophils # (Auto) 0.1 Thou/mm3 (0.0-0.2); Basophils % (Auto) 1 % (0-2.5); Eosinophils # (Auto) 0.2 Thou/mm3 (0.0-0.5); Eosinophils % (Auto) 2 % (0-10); Hematocrit 31.2 % (36.0-46.0); Hemoglobin 10.1 g/dL (12.0-16.0); Immature Granulocytes Auto 0.33 Thou/mm3 (0.00-0.00); Lymphocytes # (Auto) 2.0 Thou/mm3 (1.0-4.8); Lymphocytes % (Auto) 16 % (10-50); Mean Corpuscular HGB Conc 32.4 g/dl (31.0-37.0); Mean Corpuscular Hemoglobin 31.5 pg (25.0-35.0); Mean Corpuscular Volume 97 fL (80-100); Monocytes # (Auto) 1.5 Thou/mm3 (0.0-0.8); Monocytes % (Auto) 12 % (0-12); Neutrophils # (Auto) 8.6 Thou/mm3 (1.8-7.7); Neutrophils % (Auto) 67 % (37-80); Nucleated Red Blood Cell # 0.05 Thou/mm3 (0.00-0.00); Nucleated Red Blood Cell % 0 /100 WBC (0); Platelet Count 326 Thou/mm3 (140-440); RDW Standard Deviation 47.2 fL (36.4-46.3); Red Blood Count 3.21 Miln/mm3 (4.00-5.20); White Blood Count 12.7 Thou/mm3 (3.6-11.0)
[2025-05-23 06:18] LABS: INR 1.1 (0.9-1.3); Partial Thromboplastin Time 31.9 Seconds (22.0-36.0); Prothrombin Time 11.5 Seconds (9.0-12.2)
[2025-05-23 06:27] LABS: Alanine Aminotransferase 22 U/L (10-49); Albumin, Serum 4.0 gm/dL (3.5-5.0); Albumin/Globulin Ratio 1.6 (1.2-2.2); Alkaline Phosphatase 38 U/L (46-116); Anion Gap 9 (7-16); Aspartate Amino Transferase 29 U/L (0-34); BUN/Creatinine Ratio 11 Ratio (12-20); Bilirubin,Total 0.2 mg/dL (0.3-1.2); Blood Urea Nitrogen 9 mg/dL (9-23); Calcium 8.9 mg/dL (8.3-10.6); Calcium (Corrected) 8.9 mg/dL (8.5-10.1); Carbon Dioxide 26.9 mMol/L (20.0-31.0); Chloride 102 mMol/L (98-107); Creatinine (Component) 0.8 mg/dL (0.6-1.3); Estimated Creatinine Clearance 90.0 mL/min (>60); Globulin 2.5 gm/dL (2.3-3.5); Glucose 102 mg/dL (74-106); Magnesium 1.6 mg/dL (1.6-2.6); Osmolality,Calculated 274 (275-295); Phosphorous 3.3 mg/dL (2.4-5.1); Potassium 4.2 mMol/L (3.4-5.1); Sodium 138 mMol/L (136-145); Total Protein 6.5 gm/dL (5.7-8.2); eGFR > 60 See Note
--- NOTE | 2025-05-23 09:04 | PD.RESDS ---
Planned Discharge Date 05/23/25 DS: Providers Provider Date of admission: 05/13/25 22:07 Primary care physician: Beckie Robertson NP Admitting Provider: Xu Barnhart MD Attending Provider on Admission: Martine Ness MD Consults: 05/18/25 16:43 Consult to Cardiology Routine Comment: Consulting Provider: Jessika Mary Instructions: extensive DVT 05/20/25 09:40 Referral Physical Therapy Routine Comment: Physician Instructions: Attending Provider on DC: Dr. Ness Discharging Provider: Aura Carter MD DS: Diagnosis Problem List Completed Was Problem List Reviewed/Reconciled?: Yes Hospital Course Hospital Course Hospital course: Hospital Course Ms. Cardoza is a 59 y/o female with PMH of prior DVT (1986 after of child), obesity, tobacco use, COPD and asthma who presented to ED on 05/13 with left lower extremity swelling and tenderness x 4 days. Venous doppler US showed extensive occlusive DVT involving left common femoral, left superficial femoral, popliteal, peroneal veins as well as superficial greater saphenous vein. No clinical or radiological evidence of PE was noted. Heparin IV loading dose was given followed by heparin gtt (05/13-05/14; 05/18-05/22). Catheter-directed thrombolysis was also initiated with Cathflow and monitored with serial Doppler US, which did not show significant improvement in clot burden. Thrombectomy was performed by Dr. Mary and Dr. Jamison on 05/19 with left popliteal approach. DVT proved to be more chronic than expected, as patient has significant stenosis with robust proximal collaterals. Due to chronic stenosis, unable to resect much of the proximal clot burden, though distal DVT was removed. A repeat thrombectomy on 05/21 with more proximal approach from right femoral vein was successful in clearing clot burden from left common femoral vein, L profunda femoris vein, and L femoral vein. Final angiogram showed evidence of excellent nonobstructive flow in the common femoral vein and profunda femoral vein branches were also seen. The femoral vein itself was previously chronically occluded. Evidence of a fibrotic lesion that was removed, suggesting that mid and proximal femoral vein is completely occluded chronically with extensive fibrosis, hence this is not amenable for any intervention at this time. Patient was transitioned from heparin IV gtt to PO Eliquis 10 mg BID on 05/22. PT evaluated patient, recommended home with home health. After second thrombectomy, patient reported that her left leg pain somewhat improved. COPD and asthma were managed with scheduled Duonebs q6h administered by RT (on Brezti - budesonide/glycopyrrolate/formoterol fumerate - 2 puffs BID with albuterol rescue inhaler at home). CTA chest showed incidental findings of 3 cm right upper lobe pulmonary nodule as well as extensive calcifications of the LAD. Patient recommended to follow up outpatient for low dose CT in 6 months for monitoring in addition to outpatient cardiology workup for stable angina. Patient was also counseled on smoking cessation. Lipid panel showed elevated triglycerides and low HDL, started on atorvastatin 40 mg PO nightly. Zolpidem 5 mg PO QHS was continued as needed (home med) for insomnia. Patient hemodynamically stable. Labs reviewed and stable. Patient stable and medically cleared for discharge. 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 -Please follow instructions on the dosing of ELIQUIS (You will take 10mg twice daily for 6 more days followed by 5mg twice daily thereafter). Please Follow up with technical solution architect Dr. Mary within 1 week after discharge -Please purchase medium strength compression socks to be worn on your left leg. -Continue rest of medications as previously prescribed -Return to the ED or call EMS if symptoms return and/or worsen -consider outpatient RAMA given lower extremity claudications symptoms -We found a 3cm nodule in your Right lung, we recommend outpatient low dose CT in 6 months for monitoring pulmonary nodule. and subsequent annual low dose ct imaging Aura Carter MD PGY1 Time Spent with Patient Time attestation: Total time spent providing and/or coordinating discharge services: 40 minutes Time spent: Greater than 30 minutes Home Health Home Health Referral Orders: 05/23/25 08:15 Home Health Referral Routine Reason For Exam: Extensive DVT Home-Bound The patient must either because of illness or injury, need the aid of supportive devices such as crutches, canes, wheelchairs, and walkers; the use of special transportation; or the assistance of another person in order to leave their place of residence; OR have a condition such that leaving his or her home is medically contraindicated. In addition, the patient also meets the following criteria: patient is normally unable to leave the home and leaving home requires considerable taxing effort. Addendum to Home Health Certification Practitioner's Certification: I certify that the patient has been under my care in the hospital and the care of attending physician (see below). We had a [id number]-[id number] encounter on (see date below). My clinical findings indicate that the patient is home bound per the above criteria and the Home Health Services noted in these orders are medically necessary. The primary reason for the [id number] encounter is related to the fact that the patient requires home health services. Date Certifying [id number] Physician Encounter: 05/13/25 Physician's Name who will Assume Oversight for Services: Beckie Robertson Physician's Phone No.who will Assume Oversight for Service: SOCIAL SERVICES DESIGNEE - Community Resources: No PT to Evaluate: Yes PT to evaluate and provide a treatmnet plan to increase patient's mobility and strength. Wound Care: No IV Therapy: No RN Safety Evaluation: Yes RN to evaluate and create a plan of care that will produce positive outcomes. Palliative Treatment: No Palliative treatment and evaluate the need for hospice. Home Health Aide - Personal Care: No Home Health Aide to assist with any ADL's. Exam Vital Signs Temp Pulse Resp BP Pulse Ox O2 Del Method O2 Flow Rate 96.9 F 83 20 104/67 95 Room Air 2 05/23/25 08:00 05/23/25 08:00 05/23/25 08:00 05/23/25 08:00 05/23/25 08:00 05/23/25 08:00 05/22/25 09:00 FiO2 0.5 05/22/25 09:00 Narrative Exam General: No acute distress, well nourished Eye: PERRL, EOMI, normal conjunctiva, no scleral icterus HENT: Normocephalic, atraumatic, normal hearing, moist oral mucosa Neck: Supple, non-tender, no JVD, no lymphadenopathy Lungs: CTAB, spO2 >90% on RA. Non labored respiration. Heart: Normal S1 and S2, no S3 or S4 appreciated. Normal rate and regular rhythm, no murmurs, rubs gallops, or edema. Peripheral pulses intact bilaterally, capillary refill brisk distally Abdomen: Soft, non-tender, non-distended, normal bowel sounds. No guarding or rebound tenderness. Musculoskeletal: L extremity swelling, and warmth from ankle to groin, enlarged circumference, TTP (improved from previous exam), without erythema, no numbness, toes and feet have full range of motion. pulses palpable 1+ bilaterally. Right femoral access site clean with Tegaderm in place Skin: Skin is warm, dry, no rashes or lesions. No LLE skin changes Neurologic: Alert, awake and oriented x3. CN II-XII grossly intact. No focal neuro deficits. No signs of meningeal irritation noted. Psychiatric: Cooperative, appropriate mood and affect Discharge Plan Plan Patient Disposition: Home w/HOME HEALTH Patient condition on transfer: Stable Care Plan Goals: -Follow up with PCP within 1 week of discharge, if you do not have a primary care physician you can come see us at the [facility] by calling [phone] -You have been prescribed a blood thinner, which can cause bleeding so please be careful with falls, if you have an injury or fall please immediately go to the ED. -Please follow instructions on the dosing of ELIQUIS (You will take 10mg twice daily for 6 more days followed by 5mg twice daily thereafter). Please Follow up with technical solution architect Dr. Mary within 1 week after discharge -Please purchase medium strength compression socks to be worn on your left leg. -Continue rest of medications as previously prescribed -Return to the ED or call EMS if symptoms return and/or worsen -consider outpatient RAMA given lower extremity claudications symptoms -We found a 3cm nodule in your Right lung, we recommend outpatient low dose CT in 6 months for monitoring pulmonary nodule. and subsequent annual low dose ct imaging Prescriptions/Referrals Prescriptions/Med Rec: Noah Olmos DVT-PE Treat 30D Start 5 mg (74 tabs) tablets,dose pack 5 mg PO BID Qty: 74 0RF atorvastatin 20 mg Tablet 40 mg PO HS 30 Days Qty: 30 0RF nicotine 21 mg/24 hr Patch 24 Hour 21 mg top QDAY 30 Days Qty: 30 0RF oxycodone 5 mg Tablet 5 mg PO Q6HR MDD 4 PRN (Reason: pain 6-10) 5 Days Qty: 20 0RF Continued benzonatate 200 mg capsule 200 mg PO DAILY Patient Comments: TAKE 1 CAPSULE BY MOUTH THREE TIMES A DAY NEEDED FOR COUGH zolpidem 10 mg tablet 10 mg PO DAILY Patient Comments: TAKE 1 TABLET 1 TIME A DAY AT NIGHT albuterol sulfate 90 mcg/actuation HFA aerosol inhaler 1 puff INHALATION BID PRN (Reason: shortness of breath or wheezing) Patient Comments: INHALE 1 PUFFS BY MOUTH on 2 occasion as NEEDED SHORTNESS OF BREATH lisinopril 40 mg tablet 40 mg PO DAILY Patient Comments: TAKE 1 TABLET BY MOUTH ONE TIME A DAY Breztri Aerosphere 160-9-4.8 mcg/actuation HFA aerosol inhaler 2 inh INHALATION BID Patient Comments: INHALE 2 PUFFS BY MOUTH 2 TIMES A DAY Held tizanidine 4 mg tablet 4 mg PO TID Hold Instructions: Resume on 06/02/25. Follow up with your PCP before resuming estradiol 2 mg tablet 2 mg PO BID Hold Instructions: Resume on 06/02/25. Follow up with your PCP before resuming, please inform your PCP of the DVT Patient Comments: TAKE 2 TABLETS BY MOUTH DAILY Discontinued celecoxib 200 mg capsule 200 mg PO DAILY Referrals: Beckie Robertson NP [Primary Care Provider] Jessika Mary MD [Physician, Cardiology] Patient/Caregiver Discharge Instructions Education Materials: DVT Complications, DVT Post Op Prevention, Preventing Deep Vein Thrombosis, Compression Stockings Steps, Compression Stockings Thigh Steps Print Language: Cymro Stand Alone Forms: Deysi Award Info., Patient Portal Info Letter Discharge Order Discharge Orders: Discharge (Routine); Ordered 05/23/25 Ordered By: Dean Vaz Quality Discharge Quality Measures VTE prophylaxis Attestestation Attestation I have seen and examined the patient. I was physically present for the felix portions of the services provided including history, physical exam, diagnosis, treatment plans and orders. I agree with assessment and plan of care as documented by residents. Even though this this note was carefully revised there may still be minor errors in systems test technician due to voice recognition software. Martine Ness MD
[2025-05-23] MEDS: PANTOPRAZOLE 40 MG TABLET PO (09:52)
[2025-05-23] MEDS: DOCUSATE SOD 100 MG CAPSULE PO (09:52)
[2025-05-23] MEDS: Magnesium Sulfate 4 GM Ivpb 4 GM/50 ML BAG IV (09:53)
[2025-05-23] MEDS: APIXABAN 2.5 MG TABLET 10 MG PO (09:53)
[2025-05-23] MEDS: NICOTINE PATCH 21 MG/24 HR PATCH.TD24 TOP (09:53)
[2025-05-23] MEDS: POLYETHYLENE GLYCOL 17 GM PACKET PO (09:54)
--- NOTE | 2025-05-23 10:49 | PC.CM ---
Home health packet created, sent out via [employer], pending responses at this time.
--- NOTE | 2025-05-23 15:31 | PC.SS ---
Addendum entered by KAILA Obregon 05/23/25 15:32: Patient reports she will drive herself home. No transportation needed. Original Note: Discharge rounds: Patient is ready for d/c with home health. SW f/u with patient at bedside. Patient reports her last PCP appointment with Dr. Beckie Robertson was on 05/13/25. Patient does not have any preference for the agency.
--- NOTE | 2025-05-23 16:01 | ESPR_ITS ---
RE: LASHELL MURILLO : 1965 DATE OF SERVICE: 05/23/2025 SUBJECTIVE: The patient is doing fairly well now. She has a history of extensive deep vein thrombosis, underwent thrombectomy in the common femoral vein and the left common femoral vein and popliteal vein successfully. Leg swelling improved tremendously. She is feeling a lot better, wants to go home. Does not complain of chest pain or shortness of breath. Hemoglobin remains stable. OBJECTIVE: Vital Signs: Her vital signs remain stable. She remains in sinus rhythm, blood pressure 115/70, pulse 85. Neck: Supple. Lungs: Decreased breath sounds at bases. No rales or rhonchi. Heart: S1 and S2 regular. Abdomen: Thin and soft. Extremities: No edema. Genitourinary and Rectal: Not performed. Neurologic: Normal. ASSESSMENT: 1. Extensive deep vein thrombosis, left common femoral vein and popliteal vein, improved significantly with thrombectomy. 2. Hypertension, stable. RECOMMENDATIONS: Recommendation is to discharge the patient home on Eliquis 10 mg twice daily for 7 days, then 5 mg twice daily subsequently and follow up in 1 week in my office. DT: 15:02:53 TT: 16:00:00 Ref: [id number] - TID: [id number]
--- NOTE | 2025-05-24 18:48 | PC.CM ---
Addendum entered by Mary Jerry RN 05/24/25 18:57: I called and left a message with patient. I asked her to call me back so I could update her on home health. Original Note: Patient has been declined by all home health agencies. Patient also Lives in [place] and they do not have coverage that far [facility] in the [facility]. Patient will not be followed by home health.
== END 2025-05-23 16:31 | disposition home health service (06) | DRG 272 ==
LOC: SERX 18:15 → SERHOLD 22:49 → S2NX 05-14 02:48
PROVIDERS: Family Medicine; Internal Medicine Cardiovascular Disease; Admitting Provider Internal Medicine; Emergency Provider Emergency Medicine; PCP Nurse Practitioner Family; Visit Provider Student in an Organized Health Care Education/Training Program
PROC: (CPT 33915; principal; 2025-05-19 08:45)
DX: I82.432 Acute embolism and thrombosis of left popliteal vein (principal); I82.452 Acute embolism and thrombosis of left peroneal vein; I82.412 Acute embolism and thrombosis of left femoral vein; F17.210 Nicotine dependence, cigarettes, uncomplicated; G47.00 Insomnia, unspecified; J44.89 Other specified chronic obstructive pulmonary disease; Z86.718 Personal history of other venous thrombosis and embolism; I10 Essential (primary) hypertension; I25.10 Atherosclerotic heart disease of native coronary artery without angina pectoris; E78.1 Pure hyperglyceridemia; E83.39 Other disorders of phosphorus metabolism; K59.00 Constipation, unspecified; Z71.6 Tobacco abuse counseling; Z79.01 Long term (current) use of anticoagulants
CPT/HCPCS: 36415; 71275; 80053; 80061; 83036; 83735; 84100; 84443; 85025; 85347; 85610; 85730; 93005; 93971; 94640; 96365; 96366; 96375; 96376; 97162; 99152; 99153; 99284; A4216; A4649; A9270; C1769; C1887; C1894; J0168; J0461; J1171; J1643; J1644; J1650; J2250; J2270; J2312; J2371; J2405; J2470; J2720; J2997; J3010; J3475; J3490; J7050; Q9967; J2305